=== PATIENT | female | born 1950 | race Caucasian/White ===

== ENCOUNTER 2018-07-28 07:07 | Outpatient (CLI) | payer MEDICARE, SELFPAY ==
[2018-07-28 10:57] LABS: Hemoglobin A1C 7.4 % (4.5-6.2)
== END 2018-07-28 07:27 ==
PROVIDERS: PCP Emergency Medicine; Visit Provider Family Medicine
DX: E11.9 Type 2 diabetes mellitus without complications (principal)
CPT/HCPCS: 36415; 83036

== ENCOUNTER 2018-09-14 10:32 | Emergency (ER) | payer MEDICARE, SELFPAY ==
[2018-09-14] VITALS (45 sets, daily range): BP systolic 81–164; BP diastolic 46–73; PULSE 70–90; RESP 13–54; TEMP 36.3–37.1; O2SAT 96–100
--- NOTE | 2018-09-14 11:09 | W.ED.GENAD ---
Discharge Plan Disposition Patient Disposition: [facility] Condition: Critical Discharge Details Chief Complaint: Chest Pain Clinical Impression: Acute non-ST elevation myocardial infarction (NSTEMI) Primary Care Provider: Mateo Waite ED Provider: [facility] Home Meds and New Rx's Prescriptions: No Action amlodipine 10 mg tablet 5 mg PO DAILY Qty: 90 RF: 2 ropinirole 0.5 mg tablet 0.5 mg PO HS Qty: 15 RF: 0 ropinirole 0.5 mg tablet 0.5 mg PO HS Qty: 90 RF: 1 blood sugar diagnostic [Blood Glucose Test] 1 EACH strip 1 ea Miscellaneous DAILY Qty: 100 RF: 2 atorvastatin 80 MG tablet 80 mg PO DAILY Qty: 90 RF: 4 glipizide 10 MG tablet 15 - 20 mg PO BID Qty: 315 RF: 2 chlorthalidone 25 MG tablet 25 mg PO DAILY Qty: 90 RF: 4 losartan 100 MG tablet 100 mg PO QAM Qty: 90 RF: 4 sertraline [Zoloft] 50 MG tablet 1 tab PO HS Qty: 90 RF: 4 metformin [Glucophage] 1,000 MG tablet 1,000 - 1,500 mg PO as directed Qty: 225 RF: 3 meloxicam 15 mg tablet 15 mg PO DAILY Qty: 30 RF: 0 aspirin [Aspir-81] 81 MG tablet,delayed release (DR/EC) 81 mg PO DAILY RF: 0 Discharge Data Discharge Date/Time-TO BE ENTERED AT DEPARTURE: 09/14/18 13:49 Medical Decision Making 11:10 -- 68yo f with history of diabetes, hypertension, hyperlipidemia, here with chest discomfort. Concern for ACS given risk factors and presentation. ECG reviewed and interpreted by me: Normal sinus rhythm 77 bpm, normal axis, less than [address] elevation is noted in lead II and 3; subtle ST depression noted lead I and aVL, [place] depression is noted in leads II, III, aVF. Willl attempt to obtain old ecg for comparison. Will check trop. Patient took asa earlier today. Plan to treat with nitroglycerin sublingual. Will reassess. 11:20 -- Old ecg from 10/29/2010 reviewed, similar to current EKG with no significant changes. 11:45 -- Patient reassessed and pain resolved with nitro. 12:13 -- labs reviewed and elevated trop. Suspect NSTEMI. Will start heparin bolus and infusion. Will give plavix. Start nitro gtt and titrate to effect. 12:23 -- Spoke with [facility] [place] - not able to accept patient in transfer until tomorrow (maybe). Spoke with [facility] transfer center, awaiting call back from [facility]. cxr reviewed and interpreted by me: no acute cardiopullm disease labs reviewed and anemia noted - unclear etiology. Patient does not have known history of anemia. No prior Hb in system. Patient notes nrectal exam eg for blood 1 month ago. Rectal exam performed today with female nurse battery wrecker operator present: heme neg, control passed. 12:47 -- I spoke with Dr. Barragan at [facility] - he will accept patient in transfer to [facility] ED. He recommended giving additional 300mg of plavix now. Will arrange for medic level transport. Lab Data Lab results reviewed: Yes I reviewed the patient's lab results. Laboratory Tests Range/Units 09/14/18 09/14/18 10:55 10:55 WBC (4.4-10.8) k/cumm 7.98 RBC (4.00-5.20) m/cumm 4.46 Hgb (12.0-15.5) g/dL 9.4 L Hct (36.0-46.0) % 30.8 L MCV (80-95) fL 69.1 L MCH (27.0-33.0) pg 21.1 L MCHC (32.0-36.0) g/dL 30.5 L RDW (11.7-14.6) % 18.7 H Plt Count (130-400) x1000/uL 223 MPV (8.0-11.0) fL Immature Gran % 0.1 Neutrophils % 81.2 Lymphocytes % 11.3 Monocytes % 6.1 Eosinophils % 1.0 Basophils % 0.3 Absolute Neutrophils (1.2-6.7) k/cumm 6.48 Absolute Lymphocytes (1.2-3.4) k/cumm 0.90 L Absolute Monocytes (0.11-0.7) k/cumm 0.49 Absolute Eosinophils (0.0-0.7) k/cumm 0.08 Absolute Basophils (0.0-0.2) k/cumm 0.02 Differential Comment Diff reviewed RBC Morphology See below Polychromasia Present Hypochromasia 3+ Basophilic Stippling Present Anisocytosis 2+ Microcytosis 3+ Ovalocytes 3+ Sodium (136-145) mmol/L 138 Potassium (3.5-5.1) mmol/L 4.0 Chloride (98-107) mmol/L 100 Carbon Dioxide (21.0-32.0) mmol/L 26.1 Anion Gap (3-11) mmol/L 11.9 H BUN (7-18) mg/dL 20 H Creatinine (0.55-1.02) mg/dL 0.95 Estimated GFR/1.73 m2 (mL/min/1.73m2) 58.33 Glucose (70-100) mg/dL 224 H Calcium (8.5-10.1) mg/dL 8.9 Magnesium (1.8-2.4) mg/dL 1.0 L Total Bilirubin (0.2-1.0) mg/dL 0.3 AST (15-37) U/L 43 H ALT (12-78) U/L 34 Alkaline Phosphatase (46-116) U/L 86 Troponin I (0.00-0.06) ng/mL 1.65 H NT-Pro-B Natriuret Pep ( - 299) pg/mL 1168 H Total Protein (6.4-8.2) g/dL 7.3 Albumin (3.4-5.0) g/dL 3.7 HPI General Mode of arrival: ambulatory. Date/Time Provider Initiated Documentation: 09/14/18 11:09. Limitations to Documentation: no limitations. Information obtained by: patient. HPI Narrative: 68-year-old female with history of diabetes, hypertension, hyperlipidemia, moderate aortic regurgitation, presents with chief complaint of chest discomfort. Patient notes discomfort started yesterday afternoon, discomfort described as heavy, constant, moderate intensity and rated 5/10, associated dyspnea on exertion. No cough. No leg swelling, recent surgery or immobility. Related Data Home Medications Medication Instructions Recorded Confirmed aspirin [Aspir 81] 81 mg PO DAILY 02/02/13 09/14/18 blood sugar diagnostic [Blood #100 strip 02/12/17 08/11/18 Glucose Test] atorvastatin 80 mg PO DAILY #90 tab-cap 06/07/18 09/14/18 chlorthalidone 25 mg PO DAILY #90 tab-cap 06/07/18 09/14/18 glipizide 15 - 20 mg PO BID #315 tab-cap 06/07/18 09/14/18 losartan 100 mg PO QAM #90 tab 06/07/18 09/14/18 metformin [Glucophage] 1,000 - 1,500 mg PO as directed 06/07/18 09/14/18 #225 tab sertraline [Zoloft] 1 tab PO HS #90 tab-cap 06/07/18 09/14/18 amlodipine 10 mg tablet 5 mg PO DAILY #90 tab-cap 08/11/18 09/14/18 ropinirole 0.5 mg tablet 0.5 mg PO HS #15 tab 08/11/18 08/11/18 ropinirole 0.5 mg tablet 0.5 mg PO HS #90 tab 08/11/18 09/14/18 meloxicam 15 mg tablet 15 mg PO DAILY #30 tab 09/06/18 Previous Rx's Medication Instructions Recorded atorvastatin 80 mg PO DAILY #90 tab-cap 06/07/18 chlorthalidone 25 mg PO DAILY #90 tab-cap 06/07/18 glipizide 15 - 20 mg PO BID #315 tab-cap 06/07/18 losartan 100 mg PO QAM #90 tab 06/07/18 metformin [Glucophage] 1,000 - 1,500 mg PO as directed 06/07/18 #225 tab sertraline [Zoloft] 1 tab PO HS #90 tab-cap 06/07/18 amlodipine 10 mg tablet 5 mg PO DAILY #90 tab-cap 08/11/18 ropinirole 0.5 mg tablet 0.5 mg PO HS #15 tab 08/11/18 ropinirole 0.5 mg tablet 0.5 mg PO HS #90 tab 08/11/18 meloxicam 15 mg tablet 15 mg PO DAILY #30 tab 09/06/18 Allergies Allergy/AdvReac Type Severity Reaction Status Date / Time hydrochlorothiazide AdvReac Mild GI upset Unverified 09/14/18 10:49 lisinopril AdvReac Mild cough Unverified 09/14/18 10:49 naproxen AdvReac Mild Itching Unverified 09/14/18 10:49 oxycodone HCl [From Percocet] AdvReac Mild n and v Unverified 09/14/18 10:49 tetracycline AdvReac Mild G[set Unverified 09/14/18 10:49 General Stated Complaint: Chest Pain SHARRON: 2 Review of Systems Review of Systems All systems reviewed & are unremarkable except as noted in HPI and below Cardiovascular Reports as per HPI, Denies dyspnea and Reports dyspnea on exertion Respiratory Denies dyspnea and Reports dyspnea on exertion PFSH Family History Mother Diabetes Father Cerebrovascular accident Sister Neoplasm Sister No problems noted. 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/Tobacco Use Status: Former Tobacco Use passive smoking exposure: No alcohol intake: never substance use type: does not use julieta/jain: [employer] special julieta needs: No Surgical History Abdominal hysterectomy (~1997) Exam Const General: cooperative and no acute distress HENMT Head: normocephalic and atraumatic Mouth: moist mucous membranes Eyes Conjunctivae: normal conjunctivae Sclera: normal sclerae EOM: EOM intact bilaterally Neck Neck: trachea midline and supple Resp Auscultation: clear to auscultation bilaterally, no rales, no rhonchi and no wheezes Cardio Jugular venous pressure: no JVD Rate: regular rate and not tachycardic Rhythm: regular rhythm GI Palpation: soft, not firm, no guarding, no masses, not rigid and nontender Skin General skin exam: no rashes or lesions noted Neuro General: alert, awake, oriented x3 and tone normal Extrem General: no edema Psych Appearance: grossly normal Mental Status: mental status grossly normal Speech and Movement: speech and movement normal Course Vital Signs Temperature 36.3 C L 09/14/18 10:45 Pulse 76 09/14/18 10:45 Respiratory Rate 16 09/14/18 10:45 Blood Pressure 135/51 L 09/14/18 10:45 Pulse Oximetry 97 09/14/18 10:45 Temperature 36.3 C L 09/14/18 10:45 Temperature Source Skin 09/14/18 10:45 Pulse 76 09/14/18 10:45 Respiratory Rate 16 09/14/18 10:53 Respiratory Effort 09/14/18 10:53 Respiratory Depth Normal 09/14/18 10:53 Blood Pressure 135/51 L 09/14/18 10:45 Pulse Oximetry 97 09/14/18 10:45 Oxygen Delivery Method Room Air 09/14/18 10:45 Oxygen Flow Rate 0 09/14/18 10:45 Pain Level 8 09/14/18 10:53 Comment 09/14/18 10:45 Critical Care Time Total Critical Care Time: 55 Attestation: I spent >55 min addressing this patient's immediate life threats
--- NOTE | 2018-09-14 11:16 | ED.GENADUL_ITS ---
Discharge Plan Disposition Patient Disposition: [facility] Condition: Critical Discharge Details Chief Complaint: Chest Pain Clinical Impression: Acute non-ST elevation myocardial infarction (NSTEMI) Primary Care Provider: Mateo Waite ED Provider: [facility] Home Meds and New Rx's Prescriptions: No Action amlodipine 10 mg tablet 5 mg PO DAILY Qty: 90 RF: 2 ropinirole 0.5 mg tablet 0.5 mg PO HS Qty: 15 RF: 0 ropinirole 0.5 mg tablet 0.5 mg PO HS Qty: 90 RF: 1 blood sugar diagnostic [Blood Glucose Test] 1 EACH strip 1 ea Miscellaneous DAILY Qty: 100 RF: 2 atorvastatin 80 MG tablet 80 mg PO DAILY Qty: 90 RF: 4 glipizide 10 MG tablet 15 - 20 mg PO BID Qty: 315 RF: 2 chlorthalidone 25 MG tablet 25 mg PO DAILY Qty: 90 RF: 4 losartan 100 MG tablet 100 mg PO QAM Qty: 90 RF: 4 sertraline [Zoloft] 50 MG tablet 1 tab PO HS Qty: 90 RF: 4 metformin [Glucophage] 1,000 MG tablet 1,000 - 1,500 mg PO as directed Qty: 225 RF: 3 meloxicam 15 mg tablet 15 mg PO DAILY Qty: 30 RF: 0 aspirin [Aspir-81] 81 MG tablet,delayed release (DR/EC) 81 mg PO DAILY RF: 0 Discharge Data Discharge Date/Time-TO BE ENTERED AT DEPARTURE: 09/14/18 13:49 Medical Decision Making 11:10 -- 68yo f with history of diabetes, hypertension, hyperlipidemia, here with chest discomfort. Concern for ACS given risk factors and presentation. ECG reviewed and interpreted by me: Normal sinus rhythm 77 bpm, normal axis, less than [address] elevation is noted in lead II and 3; subtle ST depression noted lead I and aVL, [place] depression is noted in leads II, III, aVF. Willl attempt to obtain old ecg for comparison. Will check trop. Patient took asa earlier today. Plan to treat with nitroglycerin sublingual. Will reassess. 11:20 -- Old ecg from 10/29/2010 reviewed, similar to current EKG with no significant changes. 11:45 -- Patient reassessed and pain resolved with nitro. 12:13 -- labs reviewed and elevated trop. Suspect NSTEMI. Will start heparin bolus and infusion. Will give plavix. Start nitro gtt and titrate to effect. 12:23 -- Spoke with [facility] [place] - not able to accept patient in transfer until tomorrow (maybe). Spoke with [facility] transfer center, awaiting call back from [facility]. cxr reviewed and interpreted by me: no acute cardiopullm disease labs reviewed and anemia noted - unclear etiology. Patient does not have known history of anemia. No prior Hb in system. Patient notes nrectal exam eg for blood 1 month ago. Rectal exam performed today with female nurse arc cutter plasma arc present: heme neg, control passed. 12:47 -- I spoke with Dr. Barragan at [facility] - he will accept patient in transfer to [facility] ED. He recommended giving additional 300mg of plavix now. Will arrange for medic level transport. Lab Data Lab results reviewed: Yes I reviewed the patient's lab results. Laboratory Tests Range/Units 09/14/18 09/14/18 10:55 10:55 WBC (4.4-10.8) k/cumm 7.98 RBC (4.00-5.20) m/cumm 4.46 Hgb (12.0-15.5) g/dL 9.4 L Hct (36.0-46.0) % 30.8 L MCV (80-95) fL 69.1 L MCH (27.0-33.0) pg 21.1 L MCHC (32.0-36.0) g/dL 30.5 L RDW (11.7-14.6) % 18.7 H Plt Count (130-400) x1000/uL 223 MPV (8.0-11.0) fL Immature Gran % 0.1 Neutrophils % 81.2 Lymphocytes % 11.3 Monocytes % 6.1 Eosinophils % 1.0 Basophils % 0.3 Absolute Neutrophils (1.2-6.7) k/cumm 6.48 Absolute Lymphocytes (1.2-3.4) k/cumm 0.90 L Absolute Monocytes (0.11-0.7) k/cumm 0.49 Absolute Eosinophils (0.0-0.7) k/cumm 0.08 Absolute Basophils (0.0-0.2) k/cumm 0.02 Differential Comment Diff reviewed RBC Morphology See below Polychromasia Present Hypochromasia 3+ Basophilic Stippling Present Anisocytosis 2+ Microcytosis 3+ Ovalocytes 3+ Sodium (136-145) mmol/L 138 Potassium (3.5-5.1) mmol/L 4.0 Chloride (98-107) mmol/L 100 Carbon Dioxide (21.0-32.0) mmol/L 26.1 Anion Gap (3-11) mmol/L 11.9 H BUN (7-18) mg/dL 20 H Creatinine (0.55-1.02) mg/dL 0.95 Estimated GFR/1.73 m2 (mL/min/1.73m2) 58.33 Glucose (70-100) mg/dL 224 H Calcium (8.5-10.1) mg/dL 8.9 Magnesium (1.8-2.4) mg/dL 1.0 L Total Bilirubin (0.2-1.0) mg/dL 0.3 AST (15-37) U/L 43 H ALT (12-78) U/L 34 Alkaline Phosphatase (46-116) U/L 86 Troponin I (0.00-0.06) ng/mL 1.65 H NT-Pro-B Natriuret Pep ( - 299) pg/mL 1168 H Total Protein (6.4-8.2) g/dL 7.3 Albumin (3.4-5.0) g/dL 3.7 HPI General Mode of arrival: ambulatory . Date/Time Provider Initiated Documentation: 09/14/18 11:09 . Limitations to Documentation: no limitations . Information obtained by: patient . HPI Narrative: 68-year-old female with history of diabetes, hypertension, hyperlipidemia, moderate aortic regurgitation, presents with chief complaint of chest discomfort. Patient notes discomfort started yesterday afternoon, discomfort described as heavy, constant, moderate intensity and rated 5/10, associated dyspnea on exertion. No cough. No leg swelling, recent surgery or immobility. Related Data Home Medications Medication Instructions Recorded Confirmed aspirin [Aspir 81] 81 mg PO DAILY 02/02/13 09/14/18 blood sugar diagnostic [Blood #100 strip 02/12/17 08/11/18 Glucose Test] atorvastatin 80 mg PO DAILY #90 tab-cap 06/07/18 09/14/18 chlorthalidone 25 mg PO DAILY #90 tab-cap 06/07/18 09/14/18 glipizide 15 - 20 mg PO BID #315 tab-cap 06/07/18 09/14/18 losartan 100 mg PO QAM #90 tab 06/07/18 09/14/18 metformin [Glucophage] 1,000 - 1,500 mg PO as directed 06/07/18 09/14/18 #225 tab sertraline [Zoloft] 1 tab PO HS #90 tab-cap 06/07/18 09/14/18 amlodipine 10 mg tablet 5 mg PO DAILY #90 tab-cap 08/11/18 09/14/18 ropinirole 0.5 mg tablet 0.5 mg PO HS #15 tab 08/11/18 08/11/18 ropinirole 0.5 mg tablet 0.5 mg PO HS #90 tab 08/11/18 09/14/18 meloxicam 15 mg tablet 15 mg PO DAILY #30 tab 09/06/18 Previous Rx's Medication Instructions Recorded atorvastatin 80 mg PO DAILY #90 tab-cap 06/07/18 chlorthalidone 25 mg PO DAILY #90 tab-cap 06/07/18 glipizide 15 - 20 mg PO BID #315 tab-cap 06/07/18 losartan 100 mg PO QAM #90 tab 06/07/18 metformin [Glucophage] 1,000 - 1,500 mg PO as directed 06/07/18 #225 tab sertraline [Zoloft] 1 tab PO HS #90 tab-cap 06/07/18 amlodipine 10 mg tablet 5 mg PO DAILY #90 tab-cap 08/11/18 ropinirole 0.5 mg tablet 0.5 mg PO HS #15 tab 08/11/18 ropinirole 0.5 mg tablet 0.5 mg PO HS #90 tab 08/11/18 meloxicam 15 mg tablet 15 mg PO DAILY #30 tab 09/06/18 Allergies Allergy/AdvReac Type Severity Reaction Status Date / Time hydrochlorothiazide AdvReac Mild GI upset Unverified 09/14/18 10:49 lisinopril AdvReac Mild cough Unverified 09/14/18 10:49 naproxen AdvReac Mild Itching Unverified 09/14/18 10:49 oxycodone HCl [From Percocet] AdvReac Mild n and v Unverified 09/14/18 10:49 tetracycline AdvReac Mild G[set Unverified 09/14/18 10:49 General Stated Complaint: Chest Pain SHARRON: 2 Review of Systems Review of Systems All systems reviewed & are unremarkable except as noted in HPI and below Cardiovascular Reports as per HPI, Denies dyspnea and Reports dyspnea on exertion Respiratory Denies dyspnea and Reports dyspnea on exertion PFSH Family History Mother Diabetes Father Cerebrovascular accident Sister Neoplasm Sister No problems noted. Brother Heart disease Brother Diabetes Alcohol abuse Medical History Primary osteoarthritis of left knee (Acute 06/16/18) Osteoarthritis of knee (Acute 09/24/14) Moderate aortic regurgitation (Acute 04/09/15) Increased body mass index (Acute) Hyperlipidemia (Acute 04/26/13) Essential hypertension (Acute 10/24/13) Diabetes mellitus (Acute 04/26/13) Depressive disorder (Acute) Cataracts, both eyes (Acute 08/24/17) Carpal tunnel syndrome (Acute 09/21/13) Social History current occupational status: employed current occupation: [employer] Smoking/Tobacco Use Status: Former Tobacco Use passive smoking exposure: No alcohol intake: never substance use type: does not use julieta/catholic: [employer] special julieta needs: No Surgical History Abdominal hysterectomy (~1997) Exam Const General: cooperative and no acute distress HENMT Head: normocephalic and atraumatic Mouth: moist mucous membranes Eyes Conjunctivae: normal conjunctivae Sclera: normal sclerae EOM: EOM intact bilaterally Neck Neck: trachea midline and supple Resp Auscultation: clear to auscultation bilaterally, no rales, no rhonchi and no wheezes Cardio Jugular venous pressure: no JVD Rate: regular rate and not tachycardic Rhythm: regular rhythm GI Palpation: soft, not firm, no guarding, no masses, not rigid and nontender Skin General skin exam: no rashes or lesions noted Neuro General: alert, awake, oriented x3 and tone normal Extrem General: no edema Psych Appearance: grossly normal Mental Status: mental status grossly normal Speech and Movement: speech and movement normal Course Vital Signs Temperature 36.3 C L 09/14/18 10:45 Pulse 76 09/14/18 10:45 Respiratory Rate 16 09/14/18 10:45 Blood Pressure 135/51 L 09/14/18 10:45 Pulse Oximetry 97 09/14/18 10:45 Temperature 36.3 C L 09/14/18 10:45 Temperature Source Skin 09/14/18 10:45 Pulse 76 09/14/18 10:45 Respiratory Rate 16 09/14/18 10:53 Respiratory Effort 09/14/18 10:53 Respiratory Depth Normal 09/14/18 10:53 Blood Pressure 135/51 L 09/14/18 10:45 Pulse Oximetry 97 09/14/18 10:45 Oxygen Delivery Method Room Air 09/14/18 10:45 Oxygen Flow Rate 0 09/14/18 10:45 Pain Level 8 09/14/18 10:53 Comment 09/14/18 10:45 Critical Care Time Total Critical Care Time: 55 Attestation: I spent >55 min addressing this patient's immediate life threats
--- NOTE | 2018-09-14 11:31 | DI.RAD_ITS ---
SYMPTOM/DIAGNOSIS: CHEST PAIN PORTABLE AP CHEST: Comparison is made with 01/18/05. The heart size is normal. The aorta shows calcification at the arch. The lungs are suboptimally inflated. No infiltrate , effusion or pulmonary edema is seen. There is no evidence of pneumothorax. IMPRESSION: No acute abnormality.
[2018-09-14 11:43] LABS: Abs Immature Grans 0.01 k/cumm (0.0-0.09); Absolute Basophil Count 0.02 k/cumm (0.0-0.2); Absolute Eosinophil Count 0.08 k/cumm (0.0-0.7); Absolute Monocyte Count 0.49 k/cumm (0.11-0.7); Absolute Neutrophil Count 6.48 k/cumm (1.2-6.7); Basophils % 0.3; HCT 30.8 % (36.0-46.0); HGB 9.4 g/dL (12.0-15.5); Immature Grans % 0.1; Lymphocytes % 11.3; Mean Corp. HGB Concentration 30.5 g/dL (32.0-36.0); Mean Corpuscular Hemoglobin 21.1 pg (27.0-33.0); Mean Corpuscular Volume 69.1 fL (80-95); Monocytes % 6.1; Neutrophils % 81.2; Platelet Count 223 x1000/uL (130-400); RBC 4.46 m/cumm (4.00-5.20); RBC Distribution Width 18.7 % (11.7-14.6); White Blood Cell Count 7.98 k/cumm (4.4-10.8)
[2018-09-14 12:00] LABS: Anisocytosis 2+; Basophilic Stippling Present; Hypochromasia 3+; Microcytosis 3+; Ovalocytes 3+; Polychromasia Present
[2018-09-14 12:01] LABS: ALT 34 U/L (12-78); AST 43 U/L (15-37); Albumin 3.7 g/dL (3.4-5.0); Alkaline Phosphatase 86 U/L (46-116); Anion Gap 11.9 mmol/L (3-11); BUN 20 mg/dL (7-18); Bilirubin, Total 0.3 mg/dL (0.2-1.0); CO2 26.1 mmol/L (21.0-32.0); CREATININE 0.95 mg/dL (0.55-1.02); Calcium 8.9 mg/dL (8.5-10.1); Chloride 100 mmol/L (98-107); Diff Comment Diff Reviewed; Estimated GFR 58.33 (mL/min/1.73m2); Glucose 224 mg/dL (70-100); NT-proBNP 1168 pg/mL; Sodium 138 mmol/L (136-145); Total Protein 7.3 g/dL (6.4-8.2)
[2018-09-14 12:04] LABS: Troponin I 1.65 ng/mL (0.00-0.06)
[2018-09-14] MEDS: Clopidogrel 300 MG TAB PO (12:35)
[2018-09-14] MEDS: Aspirin 81 MG CHEW 162 MG CH (14:00)
== END 2018-09-14 13:49 ==
PROVIDERS: Emergency Provider Student in an Organized Health Care Education/Training Program; PCP Emergency Medicine
DX: I21.4 Non-ST elevation (NSTEMI) myocardial infarction (principal); E11.9 Type 2 diabetes mellitus without complications; Z79.84 Long term (current) use of oral hypoglycemic drugs; I10 Essential (primary) hypertension
CPT/HCPCS: 36415; 80053; 93005; 96365; 96368; 96376; 99291; 71045; 83735; 83880; 84484; 85025; 93010

== ENCOUNTER 2018-09-19 14:01 | Outpatient (RCR) | payer MEDICARE, SELFPAY | END 2018-09-21 23:59 | disposition home or self-care (01) | LOC: CR 14:01 | PROVIDERS: PCP Emergency Medicine; Visit Provider Family Medicine | DX: Z51.89 Encounter for other specified aftercare (principal) ==

== ENCOUNTER 2018-10-21 13:22 | Outpatient (RCR) | payer MEDICARE, SELFPAY | END 2018-10-21 23:59 | disposition home or self-care (01) | LOC: CR 13:22 | PROVIDERS: PCP Emergency Medicine; Visit Provider Family Medicine | DX: Z51.89 Encounter for other specified aftercare (principal) | CPT/HCPCS: S9472 ==

== ENCOUNTER 2018-11-21 13:00 | Outpatient (RCR) | payer MEDICARE, MEDICAID, SELFPAY | END 2018-11-21 23:59 | disposition home or self-care (01) | LOC: CR 13:00 | PROVIDERS: PCP Emergency Medicine; Visit Provider Family Medicine | DX: Z51.89 Encounter for other specified aftercare (principal) | CPT/HCPCS: S9472 ==

== ENCOUNTER 2018-12-01 01:19 | Outpatient (CLI) | payer MEDICARE, MEDICAID, SELFPAY ==
[2018-12-01 07:59] LABS: Abs Immature Grans 0.01 k/cumm (0.0-0.09); Absolute Basophil Count 0.02 k/cumm (0.0-0.2); Absolute Lymphocyte Count 1.24 k/cumm (1.2-3.4); Absolute Monocyte Count 0.42 k/cumm (0.11-0.7); Absolute Neutrophil Count 3.65 k/cumm (1.2-6.7); Basophils % 0.4; Eosinophils % 3.6; HCT 28.9 % (36.0-46.0); HGB 8.6 g/dL (12.0-15.5); Immature Grans % 0.2; Lymphocytes % 22.4; Mean Corp. HGB Concentration 29.8 g/dL (32.0-36.0); Mean Corpuscular Hemoglobin 20.1 pg (27.0-33.0); Mean Corpuscular Volume 67.5 fL (80-95); Monocytes % 7.6; Neutrophils % 65.8; RBC 4.28 m/cumm (4.00-5.20); RBC Distribution Width 18.6 % (11.7-14.6); White Blood Cell Count 5.54 k/cumm (4.4-10.8)
[2018-12-01 08:39] LABS: Diff Comment Diff Reviewed; Platelet Count 226 x1000/uL (130-400)
[2018-12-01 08:40] LABS: Anisocytosis 2+; Basophilic Stippling Present; Hypochromasia 3+; Microcytosis 3+; Ovalocytes 2+; Polychromasia Present
[2018-12-01 08:41] LABS: Poikilocytes 3+
[2018-12-01 08:58] LABS: Iron 17 ug/dL (50-175); Total Iron Binding Capacity 400 ug/dL (250-450); Transferrin Sat 4 % (15-50)
[2018-12-01 09:11] LABS: Ferritin 5 ng/mL (8-388)
== END 2018-12-01 01:39 ==
PROVIDERS: PCP Emergency Medicine; Visit Provider Emergency Medicine
DX: D64.9 Anemia, unspecified (principal)
CPT/HCPCS: 36415; 82728; 83540; 83550; 85025

== ENCOUNTER 2018-12-13 02:16 | Outpatient (CLI) | payer MEDICARE, MEDICAID, SELFPAY ==
[2018-12-13 08:45] LABS: Bilirubin Negative (Negative); Blood Negative (Negative); Clarity Clear; Glucose 100 mg/dL (Negative); Ketones Trace mg/dL (Negative); Leukocyte Esterase Small (Negative); Nitrite Negative (Negative); Urobilinogen 0.2 EU/dL (Up TO 0.2); pH 5.5 (5-8)
[2018-12-13 08:58] LABS: RBC 0-2 (0-2)
[2018-12-13 08:59] LABS: Bacteria Moderate HPF (Negative); C & S Indicated? Yes; Casts Negative LPF (Negative); Crystals Negative HPF (Negative); Epithelial Cells Few HPF (Negative); Mucus Moderate (Negative); Other Cells Few Transitional (Negative)
[2018-12-13 10:11] LABS: Magnesium 1.3 mg/dL (1.8-2.4)
[2018-12-14 11:57] LABS: IgA 203 mg/dL (85-499); Interpretation SEE COMMENTS; Tissue Transglutaminase IgA <1.2 U/mL (<4.0)
== END 2018-12-13 02:36 ==
PROVIDERS: PCP Family Medicine; Visit Provider Family Medicine
DX: R19.7 Diarrhea, unspecified (principal); E83.42 Hypomagnesemia; E11.9 Type 2 diabetes mellitus without complications; M17.12 Unilateral primary osteoarthritis, left knee; Z79.84 Long term (current) use of oral hypoglycemic drugs
CPT/HCPCS: 20610; 36415; 82784; 83516; 87077; 99211; 99213; 81003; 81015; 83735; 87086; J7325

== ENCOUNTER → 2018-12-14 11:04 | Outpatient (BNVA) | payer MEDICARE, MEDICAID, SELFPAY | PROVIDERS: PCP Family Medicine; Visit Provider Student in an Organized Health Care Education/Training Program | DX: I25.10 Atherosclerotic heart disease of native coronary artery without angina pectoris (principal); D50.9 Iron deficiency anemia, unspecified; I10 Essential (primary) hypertension; I65.22 Occlusion and stenosis of left carotid artery; I35.1 Nonrheumatic aortic (valve) insufficiency | CPT/HCPCS: 99204; 99215 ==

== ENCOUNTER 2018-12-26 01:54 | Outpatient (CLI) | payer MEDICARE, MEDICAID, SELFPAY ==
[2018-12-26 12:21] LABS: HCT 28.8 % (36.0-46.0); HGB 8.6 g/dL (12.0-15.5); Mean Corp. HGB Concentration 29.9 g/dL (32.0-36.0); Mean Corpuscular Hemoglobin 20.4 pg (27.0-33.0); Mean Corpuscular Volume 68.4 fL (80-95); RBC 4.21 m/cumm (4.00-5.20); RBC Distribution Width 20.7 % (11.7-14.6)
[2018-12-26 13:00] LABS: Platelet Count 212 x1000/uL (130-400)
[2018-12-26 13:49] LABS: Iron 29 ug/dL (50-175)
== END 2018-12-26 02:14 ==
PROVIDERS: PCP Family Medicine; Visit Provider Family Medicine
DX: D50.9 Iron deficiency anemia, unspecified (principal)
CPT/HCPCS: 36415; 85027; 83540

== ENCOUNTER 2019-01-26 10:11 | Outpatient (CLI) | payer MEDICARE, MEDICAID, SELFPAY ==
[2019-01-26 12:56] LABS: Iron 37 ug/dL (50-175); Total Iron Binding Capacity 372 ug/dL (250-450); Transferrin Sat 10 % (15-50)
[2019-01-26 13:02] LABS: Hemoglobin A1C 6.6 % (4.5-6.2)
[2019-01-26 13:14] LABS: Abs Immature Grans 0.01 k/cumm (0.0-0.09); Absolute Basophil Count 0.03 k/cumm (0.0-0.2); Absolute Eosinophil Count 0.14 k/cumm (0.0-0.7); Absolute Monocyte Count 0.51 k/cumm (0.11-0.7); Absolute Neutrophil Count 4.43 k/cumm (1.2-6.7); Basophils % 0.5; COMMENT (LAB VIEW ONLY) 56.77 mg/dL; Eosinophils % 2.1; HCT 34.2 % (36.0-46.0); HGB 10.3 g/dL (12.0-15.5); Immature Grans % 0.2; Lymphocytes % 21.5; Mean Corp. HGB Concentration 30.1 g/dL (32.0-36.0); Mean Corpuscular Hemoglobin 21.7 pg (27.0-33.0); Microalb ug/mg Crea 843.6 ug/mg Cr; Monocytes % 7.8; Neutrophils % 67.9; RBC 4.75 m/cumm (4.00-5.20); RBC Distribution Width 24.1 % (11.7-14.6); Reticulocyte 1.3 % (0.5-2.4); White Blood Cell Count 6.52 k/cumm (4.4-10.8)
[2019-01-26 13:16] LABS: ALT 24 U/L (12-78); AST 21 U/L (15-37); Albumin 3.9 g/dL (3.4-5.0); Alkaline Phosphatase 109 U/L (46-116); Anion Gap 7.4 mmol/L (3-11); BUN 25 mg/dL (7-18); Bilirubin, Total 0.3 mg/dL (0.2-1.0); CO2 28.6 mmol/L (21.0-32.0); CREATININE 0.75 mg/dL (0.55-1.02); Calcium 9.8 mg/dL (8.5-10.1); Chloride 105 mmol/L (98-107); Cholesterol 145 mg/dL (50-200); Ferritin 7 ng/mL (8-388); Glucose 155 mg/dL (70-100); HDL Cholesterol 54 mg/dL (40-60); LDL CHOLESTEROL 70 mg/dL (<100); Magnesium 1.2 mg/dL (1.8-2.4); Potassium 5.1 mmol/L (3.5-5.1); Sodium 141 mmol/L (136-145); Total Protein 7.1 g/dL (6.4-8.2); Triglyceride 102 mg/dL (30-150)
[2019-01-26 13:36] LABS: Anisocytosis 2+; Diff Comment RBC Morph Reviewed; Hypochromasia 1+; Microcytosis 2+; Ovalocytes 2+; Platelet Count 218 x1000/uL (130-400)
[2019-01-26 13:37] LABS: Poikilocytes 2+; Polychromasia Present; Schistocytes 1+
== END 2019-01-26 10:31 ==
PROVIDERS: PCP Family Medicine; Visit Provider Family Medicine
DX: D50.9 Iron deficiency anemia, unspecified (principal); E11.9 Type 2 diabetes mellitus without complications; I25.10 Atherosclerotic heart disease of native coronary artery without angina pectoris; E83.42 Hypomagnesemia
CPT/HCPCS: 36415; 80053; 80061; 83721; 82043; 82570; 82728; 83036; 83540; 83550; 83735; 85025; 85045

== ENCOUNTER 2019-02-22 07:43 | Outpatient (REF) | payer MEDICARE, SELFPAY ==
[2019-02-23 11:29] LABS: Helicobacter pylori Ag, Feces Positive (NEGAT)
== END 2019-02-22 08:03 ==
LOC: NCHCN 07:43
PROVIDERS: PCP Family Medicine; Visit Provider Family Medicine
DX: D50.9 Iron deficiency anemia, unspecified (principal)
CPT/HCPCS: 87338

== ENCOUNTER 2019-04-03 15:47 | Outpatient (CLI) | payer MEDICARE, SELFPAY ==
[2019-04-03 16:13] LABS: HCT 38.7 % (36.0-46.0); HGB 12.5 g/dL (12.0-15.5); Mean Corp. HGB Concentration 32.3 g/dL (32.0-36.0); Mean Corpuscular Hemoglobin 25.7 pg (27.0-33.0); Mean Corpuscular Volume 79.6 fL (80-95); RBC 4.86 m/cumm (4.00-5.20); White Blood Cell Count 7.22 k/cumm (4.4-10.8)
[2019-04-03 17:03] LABS: Iron 52 ug/dL (50-175); Total Iron Binding Capacity 295 ug/dL (250-450); Transferrin Sat 18 % (15-50)
[2019-04-03 17:05] LABS: Platelet Count 201 x1000/uL (130-400)
[2019-04-03 17:17] LABS: Ferritin 16 ng/mL (8-388)
== END 2019-04-03 16:07 ==
PROVIDERS: PCP Family Medicine; Visit Provider Family Medicine
DX: D50.9 Iron deficiency anemia, unspecified (principal)
CPT/HCPCS: 36415; 85027; 82728; 83540; 83550

== ENCOUNTER 2019-04-03 16:01 | Outpatient (REF) | payer MEDICARE, SELFPAY ==
[2019-04-06 11:47] LABS: Helicobacter pylori Ag, Feces Negative (NEGAT)
== END 2019-04-03 16:21 ==
LOC: LBN 16:01
PROVIDERS: PCP Family Medicine; Visit Provider Family Medicine
DX: A04.8 Other specified bacterial intestinal infections (principal)
CPT/HCPCS: 87338

== ENCOUNTER 2019-05-04 10:07 | Outpatient (CLI) | payer MEDICARE, SELFPAY ==
[2019-05-04 13:06] LABS: HCT 41.5 % (36.0-46.0); HGB 13.6 g/dL (12.0-15.5)
[2019-05-04 13:14] LABS: Hemoglobin A1C 6.4 % (4.5-6.2); Iron 77 ug/dL (50-175)
[2019-05-04 13:52] LABS: Anion Gap 12.7 mmol/L (3-11); BUN 24 mg/dL (7-18); CO2 25.3 mmol/L (21.0-32.0); CREATININE 0.68 mg/dL (0.55-1.02); Calcium 9.2 mg/dL (8.5-10.1); Chloride 103 mmol/L (98-107); Ferritin 20 ng/mL (8-388); Glucose 94 mg/dL (70-100); Magnesium 1.1 mg/dL (1.8-2.4); Potassium 4.9 mmol/L (3.5-5.1); Sodium 141 mmol/L (136-145)
== END 2019-05-04 10:27 ==
PROVIDERS: PCP Family Medicine; Visit Provider Family Medicine
DX: E83.42 Hypomagnesemia (principal); D50.9 Iron deficiency anemia, unspecified; E11.9 Type 2 diabetes mellitus without complications
CPT/HCPCS: 36415; 80048; 82728; 83036; 83540; 83735; 85014; 85018

== ENCOUNTER → 2019-06-13 08:37 | Outpatient (BNVA) | payer MEDICARE, SELFPAY | PROVIDERS: PCP Family Medicine; Referring Provider Family Medicine; Visit Provider Orthopaedic Surgery | DX: M17.12 Unilateral primary osteoarthritis, left knee (principal); E11.9 Type 2 diabetes mellitus without complications; I10 Essential (primary) hypertension | CPT/HCPCS: 20610; 99211; 99213; J7325 ==

== ENCOUNTER 2019-07-04 02:18 | Outpatient (CLI) | payer MEDICARE, SELFPAY ==
[2019-07-04 07:56] LABS: Hemoglobin A1C 6.3 % (4.5-6.2)
[2019-07-04 08:02] LABS: Anion Gap 10.7 mmol/L (3-11); BUN 25 mg/dL (7-18); CO2 26.3 mmol/L (21.0-32.0); Chloride 106 mmol/L (98-107); Glucose 113 mg/dL (70-100); Magnesium 1.1 mg/dL (1.8-2.4); Potassium 4.5 mmol/L (3.5-5.1); Sodium 143 mmol/L (136-145)
[2019-07-04 08:10] LABS: COMMENT (LAB VIEW ONLY) 48.95 mg/dL; Microalb ug/mg Crea 90.3 ug/mg Cr
== END 2019-07-04 02:38 ==
PROVIDERS: PCP Family Medicine; Visit Provider Family Medicine
DX: E83.42 Hypomagnesemia (principal); E11.9 Type 2 diabetes mellitus without complications
CPT/HCPCS: 36415; 80048; 82043; 82570; 83036; 83735

== ENCOUNTER → 2019-09-12 12:13 | Outpatient (BNVA) | payer MEDICARE, SELFPAY | PROVIDERS: PCP Family Medicine; Referring Provider Family Medicine; Visit Provider Internal Medicine Cardiovascular Disease | DX: I25.10 Atherosclerotic heart disease of native coronary artery without angina pectoris (principal); I35.1 Nonrheumatic aortic (valve) insufficiency; I21.9 Acute myocardial infarction, unspecified; I10 Essential (primary) hypertension; E11.9 Type 2 diabetes mellitus without complications; Z79.84 Long term (current) use of oral hypoglycemic drugs | CPT/HCPCS: 99204 ==

== ENCOUNTER 2019-09-19 16:31 | Emergency (ER) | payer MEDICARE, SELFPAY ==
[2019-09-19] VITALS (45 sets, daily range): BP systolic 88–184; BP diastolic 39–64; PULSE 56–75; RESP 10–22; TEMP 36.5–36.8; O2SAT 96–100
--- NOTE | 2019-09-19 16:50 | DI.RAD_ITS ---
EXAM: XR CHEST 2V PA LATERAL INDICATION: cough, sob, r/o acute disease. COMPARISON: XR PORTABLE CHEST AP from 09/14/2018 TECHNIQUE: 2D digital imaging was performed. FINDINGS: Heart size and pulmonary vasculature are within normal limits. No infiltrates are seen. No pleural effusion or pneumothorax is identified. Degenerative changes are seen in the spine. IMPRESSION: No acute pulmonary process. 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
--- NOTE | 2019-09-19 16:51 | ED.GENADUL_ITS ---
Discharge Plan Disposition Patient Disposition: AGAINST MEDICAL ADVICE Condition: Stable Discharge Details Chief Complaint: SOB Clinical Impression: Shortness of breath Primary Care Provider: Rosi Bower ED Provider: Jerome Lou Home Meds and New Rx's Prescriptions: No Action metformin [Glucophage] 1,000 mg tablet 1,000 - 1,500 mg PO as directed RF: 0 Natures Best Probiotic 1 tab PO DAILY RF: 0 ascorbic acid (vitamin C) 500 mg tablet 500 mg PO DAILY RF: 0 chlorthalidone 50 mg tablet 50 mg PO DAILY Qty: 90 RF: 6 (DME) Blood Glucose Test 1 EACH strip 1 ea Miscellaneous DAILY Qty: 100 RF: 2 ropinirole 0.5 mg tablet 0.5 mg PO HS Qty: 90 RF: 4 losartan 100 mg tablet 100 mg PO QAM Qty: 90 RF: 4 atorvastatin 80 mg tablet 80 mg PO DAILY Qty: 90 RF: 4 sertraline [Zoloft] 50 mg tablet 50 mg PO HS Qty: 90 RF: 4 glipizide 10 mg tablet 10 mg PO BID Qty: 180 RF: 3 metoprolol tartrate 25 mg tablet 25 mg PO BID Qty: 180 RF: 3 nitroglycerin 0.4 mg tablet, sublingual 0.4 mg SL ONCE Qty: 20 RF: 0 ferrous sulfate 325 mg (65 mg iron) tablet See Rx Instructions mg PO QID Qty: 270 RF: 3 Slow-Mag 71.5 mg tablet,delayed release (DR/EC) 214.5 mg PO DAILY Qty: 90 RF: 3 aspirin [Aspir-81] 81 MG tablet,delayed release (DR/EC) 81 mg PO DAILY RF: 0 Discharge Instructions Instructions: Upper Respiratory Infection (ED), Dyspnea (ED) Additional Instructions: Return immediately to the emergency department for any new or significant worsening of symptoms. This can include any chest discomfort that is worsening, fever chills, difficulty breathing, or any further concerns. Otherwise it is recommended that you follow-up with your primary care provider for reassessment and possible arrangement of outpatient testing as needed Referrals: Rosi Bower MD [Primary Care Provider] - 3 days Discharge Data Discharge Date/Time-TO BE ENTERED AT DEPARTURE: 09/19/19 22:35 Medical Decision Making <Bell Wilson DO - Last Filed: 09/21/19 09:35> 1640 -- 69-year-old female with history of diabetes, hypertension, hyperlipidemia, ID with 2 cardiac stents presents with cold-like symptoms for the past few days and shortness of breath that started today. She states shortness of breath similar to what she had with previous ID last year. No DVT/PE risk factors. History presentation not consistent with PE or dissection. Lungs clear. No leg swelling. EKG notes a rate of 65, sinus with no acute ST T wave ischemic changes. Differential diagnosis includes ACS, electrolyte abnormality, arrhythmia, pneumonia, PE. Will place an IV, screening labs, chest x-ray. 1799 -- Labs reviewed and unremarkable. Normal white blood cell count, troponin and BNP. D-dimer negative per age-adjusted cut off. Heart score of 4 which is a moderate risk. Discussed with patient that considering her age and risk factors, admission for serial troponins is reasonable but she is declining admission at this time. She is agreeable to stay for a second troponin. 1999 -- case endorsed to Pedro Lou to follow-up on second troponin and final disposition. Medical Records Medical records reviewed: Yes I reviewed the patient's medical records. Imaging Data Radiologic Study: Radiologist's impression: XR Chest, 2 Views Exam date and time: 09/19/2019 5:17 PM Clinical history: 69 years old, female; Other: Cough, SOB, R/O acute disease TECHNIQUE: Imaging protocol: XR of the chest Views: 2 views. COMPARISON: CR XR PORTABLE CHEST AP 09/14/2018 11:40 AM FINDINGS: Lungs: Lungs are clear. No pulmonary consolidation. Pleural space: Chronic blunting of the right lateral costophrenic angle, unchanged. No pleural effusion or pneumothorax. Heart/Mediastinum: Unremarkable. No cardiomegaly. Bones/joints: Degenerative changes of aging throughout the thoracic spine. IMPRESSION: No acute abnormality. Lab Data Lab results reviewed: Yes I reviewed the patient's lab results. Labs: Laboratory Tests Range/Units 09/19/19 09/19/19 09/19/19 16:55 16:55 16:55 WBC (4.4-10.8) k/cumm 7.37 RBC (4.00-5.20) m/cumm 4.35 Hgb (12.0-15.5) g/dL 12.7 Hct (36.0-46.0) % 38.8 MCV (80-95) fL 89.2 MCH (27.0-33.0) pg 29.2 MCHC (32.0-36.0) g/dL 32.7 RDW (11.7-14.6) % 12.6 Plt Count (130-400) x1000/uL 186 MPV (8.0-11.0) fL 12.2 H Immature Gran % 0.1 Neutrophils % 59.5 Lymphocytes % 29.0 Monocytes % 9.0 Eosinophils % 2.0 Basophils % 0.4 Absolute Neutrophils (1.2-6.7) k/cumm 4.38 Absolute Lymphocytes (1.2-3.4) k/cumm 2.14 Absolute Monocytes (0.11-0.7) k/cumm 0.66 Absolute Eosinophils (0.0-0.7) k/cumm 0.15 Absolute Basophils (0.0-0.2) k/cumm 0.03 D-Dimer (<500) ng/mlFEU 694 H Sodium (136-145) mmol/L 142 Potassium (3.5-5.1) mmol/L 3.9 Chloride (98-107) mmol/L 106 Carbon Dioxide (21.0-32.0) mmol/L 24.8 Anion Gap (3-11) mmol/L 11.2 H BUN (7-18) mg/dL 25 H Creatinine (0.55-1.02) mg/dL 0.83 Estimated GFR/1.73 m2 (mL/min/1.73m2) >= 60.00 Glucose (70-100) mg/dL 87 Calcium (8.5-10.1) mg/dL 9.3 Magnesium (1.8-2.4) mg/dL 1.2 L Total Bilirubin (0.2-1.0) mg/dL 0.2 AST (15-37) U/L 18 ALT (14-59) U/L 29 Alkaline Phosphatase (46-116) U/L 91 Troponin I (0.00-0.06) ng/mL < 0.05 NT-Pro-B Natriuret Pep ( - 299) pg/mL 224 Total Protein (6.4-8.2) g/dL 7.3 Albumin (3.4-5.0) g/dL 3.8 Range/Units 10/29/19 21:28 WBC (4.4-10.8) k/cumm RBC (4.00-5.20) m/cumm Hgb (12.0-15.5) g/dL Hct (36.0-46.0) % MCV (80-95) fL MCH (27.0-33.0) pg MCHC (32.0-36.0) g/dL RDW (11.7-14.6) % Plt Count (130-400) x1000/uL MPV (8.0-11.0) fL Immature Gran % Neutrophils % Lymphocytes % Monocytes % Eosinophils % Basophils % Absolute Neutrophils (1.2-6.7) k/cumm Absolute Lymphocytes (1.2-3.4) k/cumm Absolute Monocytes (0.11-0.7) k/cumm Absolute Eosinophils (0.0-0.7) k/cumm Absolute Basophils (0.0-0.2) k/cumm D-Dimer (<500) ng/mlFEU Sodium (136-145) mmol/L Potassium (3.5-5.1) mmol/L Chloride (98-107) mmol/L Carbon Dioxide (21.0-32.0) mmol/L Anion Gap (3-11) mmol/L BUN (7-18) mg/dL Creatinine (0.55-1.02) mg/dL Estimated GFR/1.73 m2 (mL/min/1.73m2) Glucose (70-100) mg/dL Calcium (8.5-10.1) mg/dL Magnesium (1.8-2.4) mg/dL Total Bilirubin (0.2-1.0) mg/dL AST (15-37) U/L ALT (14-59) U/L Alkaline Phosphatase (46-116) U/L Troponin I (0.00-0.06) ng/mL < 0.05 NT-Pro-B Natriuret Pep ( - 299) pg/mL Total Protein (6.4-8.2) g/dL Albumin (3.4-5.0) g/dL ECG Data Attestation: I personally reviewed and interpreted this ECG (s) as follows: Interpretation: Rate of 65, sinus, no acute ST elevation or depression. [place] 168. QTc 412. QRS 88. <Jerome Lou NP - Last Filed: 09/19/19 23:47> Patient signed out to me by Dr. Bell Wilson. Patient pending serial troponin and EKG. Second EKG was performed and shows no acute change noted from previous EKG, sinus rhythm, rate of 61, no evidence of STEMI. Review of second troponin shows less than 0.05 again negative. Reassessed patient and patient continues to state that she would prefer to go home. Discussed risks versus benefit along with further testing. It is highly considered that that is is more of a viral cold in nature given that patient has had cold-like symptoms but given that she just stopped her Plavix and does have cardiac history with moderate heart score again admission was discussed. At this time she states that this does not feel like her previous heart attack as she only has shortness of breath that is not quite the same as before and has no chest pressure. Close return precautions were discussed otherwise patient placed upon follow-up list with primary care for consideration of outpatient stress testing and any other further work-up as needed. Patient was given AMA paperwork simply due to having moderate heart score. After discussion of diagnosis and plan of care patient has no further needs, questions, or concerns and states clear understanding to return to the emergency department for any worsening symptoms. HPI <Bell Wilson DO - Last Filed: 09/21/19 09:35> General Mode of arrival: ambulatory . Date/Time Provider Initiated Documentation: 09/19/19 16:40 . Limitations to Documentation: no limitations . Information obtained by: patient . HPI Narrative: Patient is a 69-year-old female with a history of diabetes, coronary artery disease, 2 cardiac stents, hypertension and hyperlipidemia who presents for cold symptoms for the past few days and shortness of breath today. Patient states she has had runny nose productive of green and yellow sputum and cough occasionally productive of clear sputum. She denies any known fever, change in appetite, dizziness, and nausea/vomiting. She states today she was sitting at home when she developed shortness of breath. She states it occurs at random and denies any aggravating or alleviating factors. She denies any chest pain. She states that she had a heart attack with 2 stents placed 1 year ago in which she had similar presentation but also associated with chest heaviness. Related Data Home Medications Medication Instructions Recorded Confirmed aspirin [Aspir 81] 81 mg PO DAILY 02/02/13 09/20/19 blood sugar diagnostic [Blood #100 strip 02/12/17 09/20/19 Glucose Test] ropinirole 0.5 mg tablet 0.5 mg PO HS #90 tab 01/31/19 09/20/19 losartan 100 mg tablet 100 mg PO QAM #90 tab 04/23/19 09/20/19 atorvastatin 80 mg tablet 80 mg PO DAILY #90 tab-cap 06/01/19 09/20/19 sertraline 50 mg tablet 50 mg PO HS #90 tab-cap 06/01/19 09/20/19 glipizide 10 mg tablet 10 mg PO BID #180 tab-cap 06/13/19 09/20/19 metoprolol tartrate 25 mg tablet 25 mg PO BID #180 tab 06/22/19 09/20/19 nitroglycerin 0.4 mg sublingual 0.4 mg SL ONCE #20 tab 07/14/19 09/20/19 tablet Natures Best Probiotic 1 tab PO DAILY 09/12/19 09/20/19 ascorbic acid (vitamin C) 500 mg 500 mg PO DAILY 09/12/19 09/20/19 tablet chlorthalidone 50 mg tablet 50 mg PO DAILY #90 tab 09/12/19 09/20/19 ferrous sulfate 325 mg (65 mg See Rx Instructions PO QID #270 tab 09/12/19 09/20/19 iron) tablet metformin 1,000 mg tablet 1,000 - 1,500 mg PO as directed 09/12/19 09/20/19 tab magnesium chloride 71.5 mg 214.5 mg PO DAILY #90 tab 09/20/19 (magnesium chloride) tablet,delayed release Previous Rx's Medication Instructions Recorded ropinirole 0.5 mg tablet 0.5 mg PO HS #90 tab 01/31/19 losartan 100 mg tablet 100 mg PO QAM #90 tab 04/23/19 atorvastatin 80 mg tablet 80 mg PO DAILY #90 tab-cap 06/01/19 sertraline 50 mg tablet 50 mg PO HS #90 tab-cap 06/01/19 glipizide 10 mg tablet 10 mg PO BID #180 tab-cap 06/13/19 metoprolol tartrate 25 mg tablet 25 mg PO BID #180 tab 06/22/19 nitroglycerin 0.4 mg sublingual 0.4 mg SL ONCE #20 tab 07/14/19 tablet chlorthalidone 50 mg tablet 50 mg PO DAILY #90 tab 09/12/19 ferrous sulfate 325 mg (65 mg See Rx Instructions PO QID #270 tab 09/12/19 iron) tablet magnesium chloride 71.5 mg 214.5 mg PO DAILY #90 tab 09/20/19 (magnesium chloride) tablet,delayed release Allergies Allergy/AdvReac Type Severity Reaction Status Date / Time hydrochlorothiazide AdvReac Mild GI upset Verified 09/20/19 10:18 lisinopril AdvReac Mild cough Verified 09/20/19 10:18 naproxen AdvReac Mild Itching Verified 09/20/19 10:18 oxycodone HCl [From Percocet] AdvReac Mild n and v Verified 09/20/19 10:18 tetracycline AdvReac Mild G[set Verified 09/20/19 10:18 General Stated Complaint: SOB SHARRON: 3 Review of Systems <Bell Wilson DO - Last Filed: 09/21/19 09:35> All systems reviewed & are unremarkable except as noted in HPI and below Constitutional Constitutional: Reports as per HPI, Denies chills and Denies fever(s) Eyes Eyes: Denies blurry vision ENT Ears, Nose, Mouth, and Throat: Denies dizziness, Denies sore throat and Denies throat swelling Cardiovascular Cardiovascular: Denies chest pain and Reports dyspnea Respiratory Respiratory: Denies cough and Reports dyspnea Gastrointestinal Gastrointestinal: Denies abdominal pain, Denies diarrhea and Denies vomiting Genitourinary Genitourinary: Denies hematuria and Denies dysuria Musculoskeletal Musculoskeletal: Denies back pain and Denies numbness Integumentary/Breasts Skin/Breast: Denies lesions and Denies rash Neurologic Neurologic: Denies dizziness, Denies focal weakness and Denies numbness Allergic/Immunologic Allergic/Immunologic: Denies throat swelling PFSH <Bell Wilson DO - Last Filed: 09/21/19 09:35> Medical History Carpal tunnel syndrome (Acute 09/21/13) Cataracts, both eyes (Acute 08/24/17) [facility]; MILD Depressive disorder (Acute) Diabetes mellitus (Acute 04/26/13) Ophtalmo. neg. 07/2016)/no nephro 2016 Essential hypertension (Acute 10/24/13) Hyperlipidemia (Acute 04/26/13) Increased body mass index (Acute) Moderate aortic regurgitation (Acute 04/09/15) echo. : stable x 03/2015/ -2017:stable Myocardial infarct (Chronic) Aug 2018. Stenting Normal vascular exam (Acute) no lower extremity arterial occlusive disease/ [facility] [place] [facility] [place]. 08-25-2018 Osteoarthritis of knee (Acute 09/24/14) Synvisc on going Primary osteoarthritis of left knee (Chronic 06/16/18) Sensorineural hearing loss, bilateral (Acute 03/18/17) Status post left heart catheterization (LHC) (Acute ~08/2018) 2 stents RCA. Surgical History Abdominal hysterectomy (~1997) History of carpal tunnel release of both wrists (Acute ~2015) Family History Mother Diabetes Father Stroke Sister Neoplasm Sister No problems noted. 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: Yarsanism Special [place] needs: No Do you feel safe at home: Yes Do you feel safe in your relationship?: Yes Exam <Bell Wilson DO - Last Filed: 09/21/19 09:35> Const General: cooperative, healthy appearing and no acute distress HENMT Head: normal to inspection Face and sinus: normal facial exam Eyes General: appearance normal, both eyes and all related structures Pupils: PERRL EOM: EOM intact bilaterally Neck Neck: normal visual inspection and No submandibular swelling Lymphatic: no lymphadenopathy noted Chest Chest: normal inspection of the chest and no tenderness Resp Effort & Inspection: normal respiratory effort and able to speak in complete sentences Auscultation: clear to auscultation bilaterally Cardio Rate: regular rate Rhythm: regular rhythm GI Inspection: normal to inspection Palpation: soft, not firm, not rigid and nontender Auscultation: normal bowel sounds Back/Spine/Pelvis Thoracic/Lumbar Spine: thoracic and lumbar spine normal to inspection Pelvis: no pain with anterior-posterior compression Skin General skin exam: no rashes or lesions noted Neuro General: alert, awake and oriented x3 Cognition: normal cognition Speech: speech normal Motor: muscle tone normal throughout Sensory Exam: no sensory deficits noted Extrem General: normal to inspection, full ROM, normal capillary refill, no calf tenderness bilaterally and no edema Psych Appearance: grossly normal Mental Status: mental status grossly normal Speech and Movement: speech and movement normal Affect: normal affect Course <Bell Wilson DO - Last Filed: 09/21/19 09:35> Vital Signs Vital signs: Vital Signs Temperature 98.2 F 09/19/19 16:37 Pulse 75 09/19/19 16:37 Respiratory Rate 20 09/19/19 16:37 Blood Pressure 184/59 H 09/19/19 16:37 Pulse Oximetry 97 09/19/19 16:37 Temperature 98.2 F 09/19/19 16:37 Temperature Source Temporal Artery Scan 09/19/19 16:37 Pulse 75 09/19/19 16:37 Respiratory Rate 20 09/19/19 16:43 Respiratory Effort Non-Labored 09/19/19 16:43 Respiratory Depth Normal 09/19/19 16:43 Respiratory Pattern Normal 09/19/19 16:43 Blood Pressure 184/59 H 09/19/19 16:37 Blood Pressure Position Sitting 09/19/19 16:37 Pulse Oximetry 97 09/19/19 16:37 Oxygen Delivery Method Room Air 09/19/19 16:37 Oxygen Flow Rate 0 09/19/19 16:37 Pain Level 7 09/19/19 16:37 Sign Out <Bell Wilson DO - Last Filed: 09/21/19 09:35> Sign Out Data: Sign Out Comment: Follow-up on repeat troponin and EKG at 9 PM and final disposition. Last updated by Bell Wilson DO at 09/19/19 20:23
[2019-09-19 17:28] LABS: Abs Immature Grans 0.01 k/cumm (0.0-0.09); Absolute Basophil Count 0.03 k/cumm (0.0-0.2); Absolute Eosinophil Count 0.15 k/cumm (0.0-0.7); Absolute Lymphocyte Count 2.14 k/cumm (1.2-3.4); Absolute Monocyte Count 0.66 k/cumm (0.11-0.7); Absolute Neutrophil Count 4.38 k/cumm (1.2-6.7); Basophils % 0.4; HCT 38.8 % (36.0-46.0); HGB 12.7 g/dL (12.0-15.5); Immature Grans % 0.1; Mean Corp. HGB Concentration 32.7 g/dL (32.0-36.0); Mean Corpuscular Hemoglobin 29.2 pg (27.0-33.0); Mean Corpuscular Volume 89.2 fL (80-95); Mean Platelet Volume 12.2 fL (8.0-11.0); Neutrophils % 59.5; Platelet Count 186 x1000/uL (130-400); RBC 4.35 m/cumm (4.00-5.20); RBC Distribution Width 12.6 % (11.7-14.6); White Blood Cell Count 7.37 k/cumm (4.4-10.8)
[2019-09-19 17:32] LABS: ALT 29 U/L (14-59); AST 18 U/L (15-37); Albumin 3.8 g/dL (3.4-5.0); Alkaline Phosphatase 91 U/L (46-116); Anion Gap 11.2 mmol/L (3-11); BUN 25 mg/dL (7-18); Bilirubin, Total 0.2 mg/dL (0.2-1.0); CO2 24.8 mmol/L (21.0-32.0); CREATININE 0.83 mg/dL (0.55-1.02); Calcium 9.3 mg/dL (8.5-10.1); Chloride 106 mmol/L (98-107); Glucose 87 mg/dL (70-100); Magnesium 1.2 mg/dL (1.8-2.4); NT-proBNP 224 pg/mL; Potassium 3.9 mmol/L (3.5-5.1); Sodium 142 mmol/L (136-145); Total Protein 7.3 g/dL (6.4-8.2)
[2019-09-19 17:33] LABS: Troponin I < 0.05 ng/mL (0.00-0.06)
--- NOTE | 2019-09-19 17:33 | DI.VRAD_ITS ---
PROCEDURE INFORMATION: Exam: XR Chest, 2 Views Exam date and time: 09/19/2019 5:17 PM Clinical history: 69 years old, female; Other: Cough, SOB, R/O acute disease TECHNIQUE: Imaging protocol: XR of the chest Views: 2 views. COMPARISON: CR XR PORTABLE CHEST AP 09/14/2018 11:40 AM FINDINGS: Lungs: Lungs are clear. No pulmonary consolidation. Pleural space: Chronic blunting of the right lateral costophrenic angle, unchanged. No pleural effusion or pneumothorax. Heart/Mediastinum: Unremarkable. No cardiomegaly. Bones/joints: Degenerative changes of aging throughout the thoracic spine. IMPRESSION: No acute abnormality. Dictated and Authenticated by: Juan Daniel Leon MD. Ordering:JUDY Luu MD
[2019-09-19 19:04] LABS: D-Dimer 694 ng/mlFEU (<500)
[2019-09-19] MEDS: Magnesium Oxide 400 MG TAB PO (21:26)
[2019-09-19 21:56] LABS: Troponin I < 0.05 ng/mL (0.00-0.06)
--- NOTE | 2019-09-19 22:35 | NUR.NOTE ---
Nursing Note: FAXED REFERAL 09/19/19
== END 2019-09-19 22:35 | disposition left against medical advice (07) ==
PROVIDERS: Physician Assistant; Emergency Provider Nurse Practitioner Family; PCP Family Medicine
DX: R06.02 Shortness of breath (principal); I25.2 Old myocardial infarction; I10 Essential (primary) hypertension; E11.9 Type 2 diabetes mellitus without complications; Z95.5 Presence of coronary angioplasty implant and graft; Z53.29 Procedure and treatment not carried out because of patient's decision for other reasons
CPT/HCPCS: 36415; 80053; 93005; 99285; 71046; 83735; 83880; 84484; 85025; 85379; 93010

== ENCOUNTER → 2019-10-24 09:13 | Outpatient (BNVA) | payer MEDICARE, SELFPAY | PROVIDERS: PCP Family Medicine; Referring Provider Family Medicine; Visit Provider Orthopaedic Surgery | DX: G56.03 Carpal tunnel syndrome, bilateral upper limbs (principal); M25.531 Pain in right wrist; M25.532 Pain in left wrist | CPT/HCPCS: 99214 ==

== ENCOUNTER → 2019-11-07 13:28 | Outpatient (BNVA) | payer MEDICARE, SELFPAY | PROVIDERS: PCP Family Medicine; Referring Provider Orthopaedic Surgery; Visit Provider Nurse Practitioner Adult Health | DX: G56.03 Carpal tunnel syndrome, bilateral upper limbs (principal) | CPT/HCPCS: 95909; 99203; 99214 ==

== ENCOUNTER 2019-11-28 01:56 | Outpatient (CLI) | payer MEDICARE, SELFPAY ==
[2019-11-28 07:27] LABS: HCT 39.7 % (36.0-46.0); HGB 13.2 g/dL (12.0-15.5)
[2019-11-28 08:09] LABS: COMMENT (LAB VIEW ONLY) 70.03 mg/dL; Microalb ug/mg Crea 38.8 ug/mg Cr
[2019-11-28 08:10] LABS: Iron 79 ug/dL (50-170); Total Iron Binding Capacity 273 ug/dL (250-450); Transferrin Sat 29 % (15-50)
[2019-11-28 08:25] LABS: ALT 26 U/L (14-59); AST 20 U/L (15-37); Albumin 3.8 g/dL (3.4-5.0); Alkaline Phosphatase 84 U/L (46-116); Anion Gap 10.3 mmol/L (3-11); BUN 25 mg/dL (7-18); Bilirubin, Total 0.4 mg/dL (0.2-1.0); CO2 24.7 mmol/L (21.0-32.0); CREATININE 0.74 mg/dL (0.55-1.02); Calcium 8.8 mg/dL (8.5-10.1); Chloride 108 mmol/L (98-107); Ferritin 44 ng/mL (8-252); Glucose 139 mg/dL (74-106); Magnesium 1.1 mg/dL (1.8-2.4); Potassium 4.2 mmol/L (3.5-5.1); Sodium 143 mmol/L (136-145); Total Protein 6.8 g/dL (6.4-8.2)
[2019-11-28 14:43] LABS: Hemoglobin A1C 6.9 % (3.8-5.6)
== END 2019-11-28 02:16 ==
PROVIDERS: PCP Family Medicine; Visit Provider Family Medicine
DX: D50.9 Iron deficiency anemia, unspecified (principal); E11.9 Type 2 diabetes mellitus without complications; E83.42 Hypomagnesemia
CPT/HCPCS: 36415; 80053; 82043; 82570; 82728; 83036; 83540; 83550; 83735; 85014; 85018

== ENCOUNTER 2019-12-14 09:35 | Outpatient (CLI) | payer MEDICARE, SELFPAY ==
--- NOTE | 2019-12-14 09:17 | DI.RAD_ITS ---
EXAM: XR KNEE LT 3V AP,LAT,MADHURI INDICATION: DJD. COMPARISON: No exams were available for comparison TECHNIQUE: 2D digital imaging was performed. FINDINGS: There is marked narrowing of the medial femoral tibial joint space with flattening of the articular s urfaces. There is subchondral sclerosis and periarticular spurring present. In the lateral femoral tibial joint space, there is mild periarticular spurring present. There is joint space narrowing and periarticular spurring seen in the patellofemoral joint. There is a joint effusion present. No fra cture or dislocation is seen. Vascular calcifications are present in the soft tissues. IMPRESSION: Marked osteoarthritis of the knee.
== END 2019-12-14 09:55 ==
PROVIDERS: PCP Family Medicine; Referring Provider Family Medicine; Visit Provider Student in an Organized Health Care Education/Training Program
DX: M25.562 Pain in left knee (principal); M17.12 Unilateral primary osteoarthritis, left knee; M25.462 Effusion, left knee; E11.9 Type 2 diabetes mellitus without complications; I10 Essential (primary) hypertension
CPT/HCPCS: 73562; 99214

== ENCOUNTER 2020-01-02 13:32 | Outpatient (CLI) | payer OTHER, SELFPAY | END 2020-01-02 13:52 | PROVIDERS: PCP Family Medicine; Visit Provider Orthopaedic Surgery | DX: Z01.818 Encounter for other preprocedural examination (principal) ==

== ENCOUNTER 2020-01-08 06:16 | Day surgery (SDC) | payer OTHER, SELFPAY ==
[2020-01-02 13:46] VITALS: BP 144/66; PULSE 71; RESP 16; O2SAT 97
[2020-01-08 06:28] VITALS: BP 151/60; PULSE 65; RESP 16; TEMP 36.7; O2SAT 97
[2020-01-08] MEDS: Lactated Ringers 1,000 ML 80 ML IV (07:13)
[2020-01-08] MEDS: Bupivacaine 0.5% Pres-Free 30 ML VIAL (07:54)
--- NOTE | 2020-01-08 08:23 | PDOC.DSDIS_ITS ---
Discharge Plan Disposition Patient Disposition: HOME Condition: Good Discharge Details Reason For Visit: OPEN CARPAL TUNNEL RELEASE R Attending Provider: Jose Antonio Wilson Primary Care Provider: Rosi Bower Home Meds and New Rx's Prescriptions: New hydrocodone-acetaminophen 5-325 mg tablet 1 tab PO Q6H PRN (Reason: pain) Qty: 10 RF: 0 ibuprofen 600 mg tablet 600 mg PO TID Qty: 30 RF: 0 Continued Natures Best Probiotic 1 tab PO DAILY RF: 0 ascorbic acid (vitamin C) 500 mg tablet 500 mg PO DAILY RF: 0 chlorthalidone 50 mg tablet 50 mg PO DAILY Qty: 90 RF: 6 glipizide 10 mg tablet 10 mg PO BID Qty: 180 RF: 3 metformin [Glucophage] 1,000 mg tablet 1,000 - 1,500 mg PO as directed Qty: 225 RF: 4 metoprolol tartrate 25 mg tablet 25 mg PO BID Qty: 180 RF: 4 ropinirole 0.5 mg tablet 0.5 mg PO HS Qty: 90 RF: 4 sertraline [Zoloft] 50 mg tablet 50 mg PO HS Qty: 90 RF: 4 (DME) Blood Glucose Test 1 EACH strip 1 ea Miscellaneous DAILY Qty: 100 RF: 2 nitroglycerin 0.4 mg tablet, sublingual 0.4 mg SL ONCE Qty: 20 RF: 0 ferrous sulfate 325 mg (65 mg iron) tablet See Rx Instructions mg PO QID Qty: 270 RF: 3 Slow-Mag 71.5 mg tablet,delayed release (DR/EC) 214.5 mg PO DAILY Qty: 30 RF: 0 aspirin [Aspir-81] 81 MG tablet,delayed release (DR/EC) 81 mg PO DAILY RF: 0 atorvastatin [Lipitor] 80 mg tablet 80 mg PO DAILY RF: 0 losartan [Cozaar] 100 mg tablet 100 mg PO QAM RF: 0 Discharge Instructions Additional Instructions: Elevate R hand above heart level as much as possible for next 48 hours. Wiggle fingers R hand 10 times/hour when awake to prevent swelling. Keep splint and dressings dry and in place until return. Return to 's office in 2 weeks. May use R hand as much as your discomfort allows. Take ibuprofen 3 times/day as prescribed to decrease swelling and inflammation. Take tylenol for mild pain. Take hydrocodone for breakthru pain, if needed. Referrals: Jose Antonio Wilson MD [ [facility] STAFF PHYSICIAN] - (f/u in 2 weeks.) Equipment/Supplies: Splint Activity:: Activity as Tolerated Remove Dressings/Wound Care:: Do Not Remove Shower/Bathe:: Cover Diet:: As Tolerated Discharge Orders Discharge Orders: Discharge Order (Routine); Ordered 01/08/20 Ordered By: Jose Antonio Wilson DS: Diagnosis Discharge Diagnosis (1) Carpal tunnel syndrome, right: Status: Chronic
[2020-01-08 09:07] VITALS: BP 165/57; PULSE 60; RESP 18; TEMP 36.2; O2SAT 99
--- NOTE | 2020-01-09 14:47 | ROE_ITS ---
DATE OF PROCEDURE: January 08, 2020 PREOPERATIVE DIAGNOSIS: Recurrent carpal tunnel syndrome, right. POSTOPERATIVE DIAGNOSIS: Same. PROCEDURE: Open carpal tunnel release right with external neurolysis of the median nerve. ANESTHESIA: IV Regional. SURGEON: Jose Antonio Wilson M.D. SEO SPECIALIST: Jose Kaiser INDICATIONS: This is a 69-year-old white female who underwent an open carpal tunnel release by Dr. Danita hernández in July of 2016. She initially did well with good relief of her symptoms. Over the co urse of the next couple of years she's noticed a recurrence of symptoms. Especially in the last few months. She finds that she has trouble handling small objects with her right hand. It's difficult f or her to zip up her zipper without looking at things. She is dropping things frequently. She has a lso had apparent recurrence on the left side as well. Repeat nerve conduction studies showed continu ed compression of the median nerve at the carpal tunnel bilaterally. She is a right hand dominant in dividual. Because of the recurrence of symptoms that is proven electrically several years after prio r surgery, I think that exploration of the median nerve with an open carpal tunnel release and drapery head former al neurolysis of the nerve was indicated. I recommended that she treat the most symptomatic side fir st. Once she has recovered from this and she is happy with the results, she could consider the same procedure on the left side. The risks and complications of the procedure have been explained to the patient in detail preoperatively. PROCEDURE: The patient was taken to the operating room on 01/08/2020. She was placed supine on the o perating table. IV regional anesthetic was administered to the right upper extremity. Once good ane sthesia was obtained, the right hand, wrist and forearm were prepped and draped free in the usual roxann rile fashion. I incorporated the incisional scar from her prior open carpal tunnel release and exten ded the incision distally to the distal edge of the volar carpal ligament and extended it proximally about two inches proximal to the proximal flexion crease of the wrist. The incision was carried down to the fascia. Normal fascia was incised in the forearm proximally in the incision and the median n erve was identified. The nerve was carefully protected while a release of the carpal tunnel was perf ormed on the ulnar side of the carpal canal. Once the release was completed, I then used Littler sci ssors and carefully performed an external neurolysis of the median nerve. I was able to identify a s ection in the carpal canal where the nerve was most compressed. This caused a narrowing of the nerve with minimal discoloration. The exploration was carried out up to the area where the median nerve w as dividing into the digital nerves. I released the fascia proximally subcutaneous for another coupl e of inches from the edge of the incision. The wound was irrigated with saline solution. The wound margins were infiltrated with 0.5% Marcaine solution. A median nerve block was performed with 0.5% M arcaine solution. All bleeders were cauterized and a dry wound was obtained at the end of the proced ure. The skin edges were approximated with vertical mattress sutures, interrupted, of #4-0 nylon sut ures, along with simple sutures of #4-0 nylon. The wound was dressed with Xeroform gauze, sterile ga uze 4x4s, wrapped with a Kerlix bandage and then wrapped with a 3-inch MOLLY bandage. She was placed i n a commercial cockup wrist splint. The patient's IV regional anesthesia was reversed without compli cation. There was no breakthrough bleeding to the dressings. She was discharged to the recovery [facility] in good condition. The patient was later discharged home from the Day Surgery Unit when fully recovered from her IV zaheer onal anesthesia. She was given instructions to elevate her right hand above heart level as much as p ossible for the next 48 hours. She was encouraged to wiggle her fingers ten times an hour to prevent swelling of the digits. She was advised that the median nerve block may last for 24 hours postop. She is to keep her dressings and splint dry and intact until she follows up in my office in two weeks . She was given a prescription for breakthrough pain of Hydrocodone with APAP 5/325, one tablet ever y six hours, as needed. She will take Tylenol or ibuprofen for mild pain.
== END 2020-01-08 09:30 | disposition home or self-care (01) ==
PROVIDERS: PCP Family Medicine; Visit Provider Orthopaedic Surgery
PROC: (CPT 64721; principal; 2020-01-08 07:30)
DX: G56.01 Carpal tunnel syndrome, right upper limb (principal)
CPT/HCPCS: 64721; J1885; J2704; L3908

== ENCOUNTER → 2020-01-23 10:40 | Outpatient (BNVA) | payer MEDICARE, SELFPAY | PROVIDERS: PCP Family Medicine; Referring Provider Family Medicine; Visit Provider Orthopaedic Surgery | DX: G56.01 Carpal tunnel syndrome, right upper limb (principal) ==

== ENCOUNTER 2020-01-25 08:59 | Outpatient (CLI) | payer MEDICARE, SELFPAY ==
--- NOTE | 2020-01-25 08:45 | DI.RAD_ITS ---
EXAM: XR STANDING ALIGNMENT CLINICAL HISTORY: L knee OA. TECHNIQUE: 2D digital imaging was performed. COMPARISON: No exams were available for comparison FINDINGS: BONES: No acute fracture is present. No bony destructive lesion is seen. The right lower extremity me asures 79.6 cm. Left lower extremity measures 80 cm. JOINTS: There are [id number] degenerative changes in the right knee characterized by medial com partment joint space narrowing and periarticular spurring. There are moderately severe degenerative changes of the left knee characterized by marked narrowing of the medial femoral tibial joint space, periarticular spurring, and chondrocalcinosis. SOFT TISSUE: Surgical clips are seen in the pelvis. Vascular calcifications are seen in the soft tis sues. IMPRESSION: Bilateral osteoarthritis of the knees. DATA REPOSITORY: RADIATION DOSE DELIVERED:
== END 2020-01-25 09:19 ==
PROVIDERS: PCP Family Medicine; Referring Provider Family Medicine; Visit Provider Student in an Organized Health Care Education/Training Program
DX: M17.11 Unilateral primary osteoarthritis, right knee (principal); M17.12 Unilateral primary osteoarthritis, left knee; Z98.890 Other specified postprocedural states
CPT/HCPCS: 99213; 77073

== ENCOUNTER → 2020-03-05 09:48 | Outpatient (BNVA) | payer MEDICARE, SELFPAY | PROVIDERS: PCP Family Medicine; Referring Provider Family Medicine; Visit Provider Orthopaedic Surgery | DX: Z47.89 Encounter for other orthopedic aftercare (principal); G56.01 Carpal tunnel syndrome, right upper limb ==

== ENCOUNTER → 2020-03-12 09:45 | Outpatient (BNVA) | payer MEDICARE, SELFPAY | PROVIDERS: PCP Family Medicine; Referring Provider Family Medicine; Visit Provider Internal Medicine Cardiovascular Disease | DX: I25.10 Atherosclerotic heart disease of native coronary artery without angina pectoris (principal); I35.1 Nonrheumatic aortic (valve) insufficiency; I10 Essential (primary) hypertension; Z87.891 Personal history of nicotine dependence | CPT/HCPCS: 99214; 99443 ==

== ENCOUNTER 2020-03-22 01:45 | Outpatient (CLI) | payer MEDICARE, SELFPAY ==
[2020-03-22 10:00] LABS: Iron 120 ug/dL (50-170); Total Iron Binding Capacity 289 ug/dL (250-450); Transferrin Sat 42 % (15-50)
[2020-03-22 10:12] LABS: Anion Gap 11.4 mmol/L (3-11); BUN 22 mg/dL (7-18); CO2 25.6 mmol/L (21.0-32.0); CREATININE 0.86 mg/dL (0.55-1.02); Calcium 9.3 mg/dL (8.5-10.1); Calculated LDL 79 mg/dL (<100); Chloride 103 mmol/L (98-107); Cholesterol 155 mg/dL (<200); Ferritin 86 ng/mL (8-252); Glucose 164 mg/dL (74-106); HDL Cholesterol 47 mg/dL (40-60); Magnesium 1.1 mg/dL (1.8-2.4); Potassium 4.5 mmol/L (3.5-5.1); Sodium 140 mmol/L (136-145); Triglyceride 145 mg/dL (<150)
== END 2020-03-22 02:05 ==
PROVIDERS: PCP Family Medicine; Visit Provider Family Medicine
DX: D50.9 Iron deficiency anemia, unspecified (principal); I10 Essential (primary) hypertension; I25.10 Atherosclerotic heart disease of native coronary artery without angina pectoris; E83.42 Hypomagnesemia
CPT/HCPCS: 36415; 80048; 80061; 82728; 83540; 83550; 83735

== ENCOUNTER 2020-06-14 02:18 | Outpatient (CLI) | payer OTHER, SELFPAY ==
[2020-06-14 09:40] LABS: HCT 37.8 % (36.0-46.0); HGB 12.5 g/dL (12.0-15.5); Mean Corp. HGB Concentration 33.1 g/dL (32.0-36.0); Mean Corpuscular Hemoglobin 29.4 pg (27.0-33.0); Mean Corpuscular Volume 88.9 fL (80-95); Mean Platelet Volume 11.5 fL (8.0-11.0); Platelet Count 225 x1000/uL (130-400); RBC 4.25 m/cumm (4.00-5.20); White Blood Cell Count 7.55 k/cumm (4.4-10.8)
[2020-06-14 09:58] LABS: Hemoglobin A1C 7.4 % (3.8-5.6)
[2020-06-14 10:20] LABS: Anion Gap 12.3 mmol/L (3-11); BUN 29 mg/dL (7-18); CO2 25.7 mmol/L (21.0-32.0); CREATININE 0.86 mg/dL (0.55-1.02); Calcium 9.4 mg/dL (8.5-10.1); Chloride 102 mmol/L (98-107); Glucose 214 mg/dL (74-106); Potassium 4.2 mmol/L (3.5-5.1); Sodium 140 mmol/L (136-145)
== END 2020-06-14 02:38 ==
PROVIDERS: Physician Assistant Surgical; PCP Family Medicine; Visit Provider Student in an Organized Health Care Education/Training Program
DX: E11.9 Type 2 diabetes mellitus without complications (principal); M17.12 Unilateral primary osteoarthritis, left knee
CPT/HCPCS: 36415; 80048; 85027; 83036

== ENCOUNTER 2020-06-14 07:39 | Outpatient (CLI) | payer OTHER, SELFPAY ==
[2020-06-15 23:53] LABS: COVID-19 RT-PCR Result NEGATIVE (Negative)
== END 2020-06-14 07:59 ==
PROVIDERS: PCP Family Medicine; Visit Provider Student in an Organized Health Care Education/Training Program
DX: M17.12 Unilateral primary osteoarthritis, left knee (principal); Z01.818 Encounter for other preprocedural examination
CPT/HCPCS: U0003

== ENCOUNTER 2020-06-18 06:09 | Observation (INO) | payer OTHER, SELFPAY ==
[2020-06-18] VITALS (12 sets, daily range): BP systolic 106–145; BP diastolic 42–81; PULSE 67–87; RESP 12–20; TEMP 35.3–36.6; O2SAT 93–100
[2020-06-18] MEDS: Acetaminophen 500 MG TAB 1000 MG PO ×2 (06:48→13:51)
[2020-06-18] MEDS: Celecoxib 200 MG CAP 400 MG PO (06:48)
[2020-06-18] MEDS: Gabapentin 300 MG CAP PO (06:48)
[2020-06-18] MEDS: Lactated Ringers 1,000 ML 80 ML IV ×2 (07:11→10:11)
--- NOTE | 2020-06-18 07:44 | W.PM.DS.N ---
Date of service: 06/18/20 Time of Service: 14:05 DS: Diagnosis Discharge Diagnosis (1) Primary osteoarthritis of left knee: Status: Chronic Discharge Plan Disposition Patient Disposition: HOME Condition: Good Discharge Details Reason For Visit: L KNEE DJD Admit Date/Time: 06/18/20 06:09 Admit Provider: Dharmesh Edmondson Attending Provider: Dharmesh Edmondson Primary Care Provider: [facility] Hospital Course: Patient was admitted to the medical/surgical floor following the procedure. The surgery was tolerated well without any notable medical, surgical, or anesthetic complications. Mobilization began postoperatively. She was voiding spontaneously. Vitals were stable. Physical therapy worked with the patient and was cleared for discharge home. No acute medical issues. Pain was controlled on oral regimen. Home Meds and New Rx's Prescriptions: New aspirin 81 mg tablet,delayed release (DR/EC) 81 mg PO BID Qty: 60 RF: 0 acetaminophen 500 mg tablet 1,000 mg PO Q8H PRN (Reason: pain) Qty: 90 RF: 3 pantoprazole 40 mg tablet,delayed release (DR/EC) 40 mg PO DAILY Qty: 30 RF: 0 docusate sodium [Colace] 100 mg capsule 100 mg PO BID PRNQty: 10 RF: 0 gabapentin 300 mg capsule 300 mg PO QHS Qty: 7 RF: 0 tramadol 50 mg tablet 50 mg PO Q4H MDD 300mg PRNQty: 12 RF: 0 ibuprofen 600 mg tablet 600 mg PO TID Qty: 60 RF: 0 Continued ascorbic acid (vitamin C) 500 mg tablet 500 mg PO DAILY RF: 0 chlorthalidone 50 mg tablet 50 mg PO DAILY Qty: 90 RF: 6 metoprolol tartrate 25 mg tablet 25 mg PO BID Qty: 180 RF: 4 ropinirole 0.5 mg tablet 0.5 mg PO HS Qty: 90 RF: 4 sertraline [Zoloft] 50 mg tablet 50 mg PO HS Qty: 90 RF: 4 amlodipine 10 mg tablet 10 mg PO DAILY Qty: 90 RF: 4 Slow-Mag 71.5 mg tablet,delayed release (DR/EC) 500 mg PO DAILY RF: 0 ferrous sulfate 325 mg (65 mg iron) tablet See Rx Instructions mg PO QID Qty: 270 RF: 3 nitroglycerin 0.4 mg tablet, sublingual 0.4 mg SL ONCE Qty: 20 RF: 0 atorvastatin [Lipitor] 80 mg tablet 80 mg PO DAILY Qty: 90 RF: 4 glipizide 10 mg tablet 10 mg PO BID Qty: 180 RF: 4 losartan [Cozaar] 100 mg tablet 100 mg PO QAM Qty: 90 RF: 4 metformin [Glucophage] 1,000 mg tablet 1,000 - 1,500 mg PO as directed Qty: 225 RF: 4 Probiotic Complex (with FOS) 10 billion cell-100 mg Capsule 200 mg PO DAILY RF: 0 Discontinued acetaminophen [Tylenol Extra Strength] 500 mg tablet 500 mg PO Q6H PRNRF: 0 aspirin [Aspir-81] 81 MG tablet,delayed release (DR/EC) 81 mg PO DAILY RF: 0 No Action (DME) blood sugar diagnostic [Blood Glucose Test] 1 EACH strip 1 ea Miscellaneous DAILY Qty: 100 RF: 2 Discharge Instructions Additional Instructions: Dr. Edmondson?s Total Knee Discharge Instructions Activity: The most important activity is to walk. You should try to take short walks a few times a day. It is important that when resting you work on keeping the knee straight. Avoid putting a pillow behind the knee as this will encourage flexion. Work on range of motion exercises as provided by Physical Therapy and the preoperative booklet. - Start outpatient physical therapy within 2 weeks. - You should wear the SHOSHANA hose on both legs for 2 weeks. Dressing: Keep the surgical dressing (Mepilex) in place for at least one week. If you went home on the surgical day, you should remove the MOLLY wrap on the second day and then apply the SHOSHANA hose. The dressing may get wet after 3 days but avoid soaking the dressing. If it gets wet, just lightly pat dry. Most patient prefer to cover with ClingWrap or Saran Wrap to keep the dressing dry. After the first week, the dressing may be removed and replaced with light gauze and tape or nothing. Medications: - You should take Tylenol and anti-inflammatory Ibuprofen as your primary pain control medications - You have been prescribed a stronger pain medication Tramadol for breakthrough pain, take as needed as prescribed. - You have also been prescribed a stomach acid reduction agent Pantoprozole to help reduce stomach acid and reflux. - You have Gabapentin to take at night for nerve pain and restlessness. - You will be taking Aspirin 81mg twice a day for DVT prevention unless instructed otherwise. - If you have constipation you should take Colace or Miralax (both [id number]). It takes most people 3-4 days to have a bowel movement. Follow-up: 2 weeks. You should also call physical therapy to work on scheduling outpatient therapy sessions which can begin at 2 weeks. If you have any acute concerns or questions, please do not hesitate to contact the office at [phone]. You may contact Dr. Edmondson with any questions after hours through the hospital at [phone] or on his cell phone at [phone]. Referrals: Dharmesh Edmondson MD [ [facility] STAFF PHYSICIAN] - Activity:: Activity as Tolerated Equipment/Supplies:: Walker Diet:: Carb Counting Discharge Orders Discharge Orders: Discharge Order (Routine); Ordered 06/18/20 Ordered By: Dharmesh Edmondson DS: Summary Status at Discharge Functional status at discharge: uses cane/walker Overall status at discharge: patient is progressing back to baseline Mental Status: mental status grossly normal Speech and Movement: speech and movement normal Mood: congruent mood Affect: normal affect Exam Psych Mental Status: mental status grossly normal Speech and Movement: speech and movement normal Mood: congruent mood Affect: normal affect DS: Data Vitals/I&O Vitals and I&O: Vital Signs Temperature 36.4 C L 06/18/20 06:32 Pulse 70 06/18/20 06:32 Pulse Rhythm Regular 06/18/20 06:32 Respiratory Rate 16 06/18/20 06:32 Respiratory Effort 06/18/20 06:32 Respiratory Depth Normal 06/18/20 06:32 Respiratory Pattern Normal 06/18/20 06:32 Blood Pressure 142/60 H 06/18/20 06:32 Pulse Oximetry 95 06/18/20 06:32 Oxygen Delivery Method Room Air 06/18/20 06:32 Oxygen Flow Rate 0 06/18/20 06:32 Intake & Output 06/17/20 06/17/20 06/18/20 11:59 23:59 11:59 Weight 78.2 kg [facility] Medical History Cataracts, both eyes (Acute 08/24/17) [facility]; MILD Depressive disorder (Acute) Diabetes mellitus (Acute 04/26/13) Ophtalmo. neg. 07/2016)/no nephro 2016 Essential hypertension (Acute 10/24/13) Hyperlipidemia (Acute 04/26/13) Increased body mass index (Acute) Moderate aortic regurgitation (Acute 04/09/15) echo. : stable x -2016:stable Normal vascular exam (Acute) no lower extremity arterial occlusive disease/ [facility] [place] lab. 08-25-2018 Primary osteoarthritis of left knee (Chronic 06/16/18) Injected: 12/14/2019 Sensorineural hearing loss, bilateral (Acute 03/18/17) Status post left heart catheterization (LHC) (Acute ~08/2018) 2 stents RCA. Surgical History Abdominal hysterectomy (~1997) History of carpal tunnel release of both wrists (Acute ~2015) Myocardial infarct (Chronic) Aug 2018. Stenting Family History Mother Diabetes Father Stroke Sister Neoplasm Sister No problems noted. 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
[2020-06-18] MEDS: ceFAZolin 2 GM/50 ML BAG IVPB (07:51)
[2020-06-18] MEDS: Bupivacaine 0.25% Pres-Free 30 ML VIAL (08:36)
[2020-06-18] MEDS: Ketorolac 30 MG/ML VIAL (08:37)
[2020-06-18] MEDS: Normal Saline 20 ML VIAL (08:38)
--- NOTE | 2020-06-18 10:55 | PT.INIE ---
Date of service: 06/18/20 Time of Service: 10:55 PT Notes Visit Reasons: L KNEE DJD Physical Therapy Inpatient Initial Evaluation Date: 06/18/2020 Referring Doctor: Dharmesh Edmondson MD PT Orders: PT CONSULT: Status post Ortho surgery. Status post left TKA. Precautions: Fall. Standard. WBAT on left LE. Patient Profile/Admitting Diagnosis: Yenny See is a 70-year-old female with primary unilateral osteoarthritis of the left knee and is status post left total knee plasty on post operative day 0. PMHX: Medical History Cataracts, both eyes (Acute 08/24/17) [facility]; MILD Depressive disorder (Acute) Diabetes mellitus (Acute 04/26/13) Ophtalmo. neg. 07/2016)/no nephro 2016 Essential hypertension (Acute 10/24/13) Hyperlipidemia (Acute 04/26/13) Increased body mass index (Acute) Moderate aortic regurgitation (Acute 04/09/15) echo. : stable x 03/2015/ -2016:stable Normal vascular exam (Acute) no lower extremity arterial occlusive disease/ [facility] [place] Vascular lab. 08-25-2018 Osteoarthritis of knee (Acute 09/24/14) Synvisc on going Primary osteoarthritis of left knee (Chronic 06/16/18) Injected: 12/14/2019 Sensorineural hearing loss, bilateral (Acute 03/18/17) Status post left heart catheterization (LHC) (Acute ~08/2018) 2 stents RCA. Surgical History Abdominal hysterectomy (~1997) History of carpal tunnel release of both wrists (Acute ~2015) Myocardial infarct (Chronic) Aug 2018. Stenting Social History/Home Situation: Yenny lives alone in a mobile home with her steps to enter and a rail on one side. Dependent with all aspects of ADLs without assist device nor adaptive equipment. Has worked in the [employer] section of [employer] over 8 years now. She has 2 daughters who live in [place] who can help with anything that she needs. Equipment Owned/DME: Front wheeled walker Subjective: Patient reported mild lightheadedness upon sitting up at edge of bed but that subsided after a while. Reported some stiffness on the left knee and pulling sensation on the back of the knee with straight leg raising activity. Denies headache and chest pain throughout. Reported 4/10 pain in the left knee at rest, diminished to 2/10 after ambulation activity. Objective: General Observation: Anti-thromboembolic pumps to bilateral legs. MOLLY wrap on left LE. Cryo/Cuff on left knee. IV in the right R UE. Mental Status: Alert and oriented x4 Pain: 4/10 at rest. 2/10 after ambulation activity. ROM: Right Upper Extremity: Shoulder Flexion WFL. Shoulder abduction WFL. Elbow flexion WFL. Wrist flexion WFL. Opening and closing of hand WFL. Left Upper Extremity: Shoulder Flexion WFL. Shoulder abduction WFL. Elbow flexion WFL. Wrist flexion WFL. Opening and closing of hand WFL. Right Lower Extremity: Hip flexion WFL. Hip abduction WFL. Knee flexion WFL. Ankle dorsiflexion WFL. Ankle plantarflexion WFL. Left Lower Extremity: Hip flexion WFL. Hip abduction WFL. Knee flexion 20 to 110 degrees. Knee extension -20 degrees. Ankle dorsiflexion WFL. Ankle plantarflexion WFL. Strength: Right Upper Extremity: Shoulder flexors 5/5. Shoulder abductors 5/5. Elbow flexors 5/5. Elbow extensors 5/5. Sample Card Maker strong. Left Upper Extremity: Shoulder flexors 5/5. Shoulder abductors 5/5. Elbow flexors 5/5. Elbow extensors 5/5. Sample Card Maker strong. Right Lower Extremity: Hip flexors 5/5. Hip abductors 5/5. Knee flexors 5/5. Knee extensors 5/5. Ankle dorsiflexors 5/5. Ankle plantarflexors 5/5. Left Lower Extremity:Hip flexors 5/5. Hip abductors 5/5. Knee flexors 3-/5. Knee extensors 3-/5. Ankle dorsiflexors 5/5. Ankle plantarflexors 5/5. Sensation: Intact as to pain and pressure on bilateral lower extremities. Bed Mobility/Transfers: Supine to sit supervision Sit to supine supervision Sit to stand contact-guard assist Stand to sit contact-guard assist Bed to chair contact-guard assist Chair to bed contact-guard assist Gait: 150 feet of level surface ambulation utilizing a front wheeled walker with step to gait pattern requiring contact-guard assist, IV pole management, and wheelchair follow by PT. Decreased javier. Patient reports usually difference with how much she is able to bend her knee postop as compared to before surgery. Balance: Static Sitting: Normal Dynamic Sitting: Normal Static Standing: Fair Dynamic Standing: Fair Special Tests: Mobility Limitations Standardized Measure [facility] AM-PAC 6 clicks Basic Mobility Inpatient Short Form: Raw Score: 1847% deficit CMS Score: Informed Consent/Education: Patient instructed in purpose of PT consult and plan of care. Assessment: Yenny See is a 70-year-old female who demonstrates decreased functional mobility requiring the use of a front wheeled walker for all mobility ADL performance, limitation in range of motion and strength and the left knee, difficulty with walking, and impairment with balance due to postoperative status. Yenny See is a 70-year-old female with primary unilateral osteoarthritis of the left knee and is status post left total knee plasty on post operative day 0. Patient presents with clinical signs and symptoms consistent with current/admitting diagnoses that have resulted to mobility limitations, gait instability, generalized weakness, and impairment of motor control as demonstrated by the following impairment level findings: 1. Decreased strength to L knee major muscle groups 2. Impaired standing balance 3. Impaired activity tolerance 4. Limitation of joint range of motion in L knee Impairments are contributing to the following functional limitations: 1. Inability to safely ambulate without assistive device and physical assistance 2. Increase completion time for mobility ADL performance 3. Increased fall risk 4. Inability to negotiate steps alone safely Patient is assessed as a 162 moderate complexity based on the following: History: 70-year-old female with impairment level findings, functional limitations, and past medical history as indicated above Examination: Demonstrable impairment in strength, balance, and mobility level with underlying impairments and functional limitations as documented above Presentation: Evolving Decision Makin moderate complexity Goals: After 1 more session today 1. Supine-Sit independent 2. Sit-Supine independent 3. Sit-Stand supervision 4. Stand-Sit supervision 5. Bed-Chair supervision 6. Chair-Bed supervision 7. SBA gait on level surface with use of least restrictive device for at least 300 feet without report of pain nor dyspnea 8. SBA stair negotiation while holding onto bilateral rails for at least 10 steps without report of pain nor dyspnea 9. Independent with home exercise program Plan of Care/Treatment Plan: Patient will be seen for 1 more session for education and training on stair negotiation as well as on early exercises that she can do for the first 2 weeks postop prior to orthopedic follow-up. DISCHARGE RECOMMENDATIONS: Outpatient PT services to regain premorbid independent level and facilitate return to full vocational activities TREATMENT CODE/TIME: 26171 x 30 minutes, 753 0 x 25 minutes beginning at 10:55 AM. Thank you for the opportunity to participate in the care of this patient. Deandra Sen PT, DPT, CLT [facility] [place], [place]
--- NOTE | 2020-06-18 12:45 | PT.INDS ---
Date of service: 06/18/20 Time of Service: 12:45 PT Notes Visit Reasons: L KNEE DJD Inpatient Physical Therapy Discharge Summary Dates: 06/18/2020 Dates of Service: 06/10/2020 only Referring Doctor: Dharmesh Edmondson MD PT Orders: PT CONSULT: Status post Ortho surgery. Status post left TKA. Precautions: Fall. Standard. WBAT on left LE. Patient Profile/Admitting Diagnosis: Yenny See is a 70-year-old female with primary unilateral osteoarthritis of the left knee and is status post left total knee plasty on post operative day 0. Subjective: No report of lightheadedness during ambulation and stair activities. She states that her daughter is picking her up and taking her home today. Objective: General Observation: Anti-thromboembolic pumps to bilateral legs. MOLLY wrap on left LE. Cryo/Cuff on left knee. IV in the right R UE. Mental Status: Alert and oriented x4 Pain: 4/10 at rest. 2/10 after ambulation activity. ROM: Right Upper Extremity: Shoulder Flexion WFL. Shoulder abduction WFL. Elbow flexion WFL. Wrist flexion WFL. Opening and closing of hand WFL. Left Upper Extremity: Shoulder Flexion WFL. Shoulder abduction WFL. Elbow flexion WFL. Wrist flexion WFL. Opening and closing of hand WFL. Right Lower Extremity: Hip flexion WFL. Hip abduction WFL. Knee flexion WFL. Ankle dorsiflexion WFL. Ankle plantarflexion WFL. Left Lower Extremity: Hip flexion WFL. Hip abduction WFL. Knee flexion 20 to 110 degrees. Knee extension -20 degrees. Ankle dorsiflexion WFL. Ankle plantarflexion WFL. Strength: Right Upper Extremity: Shoulder flexors 5/5. Shoulder abductors 5/5. Elbow flexors 5/5. Elbow extensors 5/5. Puppet Developer strong. Left Upper Extremity: Shoulder flexors 5/5. Shoulder abductors 5/5. Elbow flexors 5/5. Elbow extensors 5/5. Puppet Developer strong. Right Lower Extremity: Hip flexors 5/5. Hip abductors 5/5. Knee flexors 5/5. Knee extensors 5/5. Ankle dorsiflexors 5/5. Ankle plantarflexors 5/5. Left Lower Extremity:Hip flexors 5/5. Hip abductors 5/5. Knee flexors 3-/5. Knee extensors 3-/5. Ankle dorsiflexors 5/5. Ankle plantarflexors 5/5. Sensation: Intact as to pain and pressure on bilateral lower extremities. Bed Mobility/Transfers: Supine to sit supervision Sit to supine supervision Sit to stand SBA Stand to sit SBA Bed to chair SBA Chair to bed SBA Gait: 150 feet + 200 feet of level surface ambulation utilizing a front wheeled walker with step through gait pattern requiring stand by assist and IV pole management. Decreasing javier. Patient states that she needs to get used to bending her knee more with each leg. Balance: Static Sitting: Normal Dynamic Sitting: Normal Static Standing: Fair Dynamic Standing: Fair Assessment: Yenny See is a 70-year-old female who demonstrates decreased functional mobility requiring the use of a front wheeled walker for all mobility ADL performance, limitation in range of motion and strength and the left knee, difficulty with walking, and impairment with balance due to postoperative status. Yenny See is a 70-year-old female with primary unilateral osteoarthritis of the left knee and is status post left total knee arthroplasty on post operative day 0. Patient presents with clinical signs and symptoms consistent with current/admitting diagnoses that have resulted to mobility limitations, gait instability, generalized weakness, and impairment of motor control as demonstrated by the following impairment level findings: 1. Decreased strength to L knee major muscle groups 2. Impaired standing balance 3. Impaired activity tolerance 4. Limitation of joint range of motion in L knee Impairments are contributing to the following functional limitations: 1. Inability to safely ambulate without assistive device and physical assistance 2. Increase completion time for mobility ADL performance 3. Increased fall risk 4. Inability to negotiate steps alone safely Goals: After 1 more session today 1. Supine-Sit independent MET 2. Sit-Supine independent MET 3. Sit-Stand supervision NOT MET 4. Stand-Sit supervision NOT MET 5. Bed-Chair supervision NOT MET 6. Chair-Bed supervision NOT MET 7. SBA gait on level surface with use of least restrictive device for at least 300 feet without report of pain nor dyspnea NOT MET 8. SBA stair negotiation while holding onto bilateral rails for at least 10 steps without report of pain nor dyspnea NOT MET 9. Independent with home exercise program MET DISCHARGE RECOMMENDATIONS: Outpatient PT services to regain premorbid independent level and facilitate return to full vocational activities. TREATMENT CODE/TIME: 89330 x 43 minutes beginning at 12:45 AM. Thank you for the opportunity to participate in the care of this patient. Deandra Sen PT, DPT, CLT [facility] [place], [place]
[2020-06-18] MEDS: ceFAZolin 1 GM/50 ML BAG IVPB (12:54)
[2020-06-18] MEDS: Insulin Aspart 300 UNITS/3 ML PEN SC (12:57)
--- NOTE | 2020-06-18 14:21 | ROE_ITS ---
Date of service: 06/18/20 Time of Service: 09:22 Operative Note Operative Note DATE OF PROCEDURE: 06/18/20 PRE-OP DIAGNOSIS: Left Knee Osteoarthritis POST-OP DIAGNOSIS: same PROCEDURE: Left Total Knee Replacement SURGEON: Dharmesh Edmondson OCEAN EXPORT ACCOUNT MANAGER: Hafsa Ortiz ANESTHESIA: regional and spinal ESTIMATED BLOOD LOSS: 300 PATHOLOGY: none sent TOURNIQUET TIME: 25 COMPLICATIONS: None Patient was transported to: PACU Patient's condition: stable Implants: 1. Depuy Attune Cruciate Retaining Femoral Component, Size 3 2. Depuy Attune Rotating Platform Tibial Component, Size 3 3. Depuy Attune 3x12 CR,RP Poly 4. Depuy Attune Patellar Component, Size 35 Indications: I have seen Yenny in clinic for symptoms of knee arthritis, confirmed with radiographic findings. Yenny has exhausted nonoperative methods and was having significant limitations in daily function and desired better function and less pain. I discussed the technical details of a knee replacement. I explained the risks of the procedure to include, but not limited to, bleeding, infection, pain, stiffness, fracture, damage to nerves and vessels, damage to muscles and tendons, loosening, need for repeat procedure, blood clot and cardiopulmonary demise. Despite these risks, Yenny elected to proceed. Findings: There was significant signs of arthritis throughout the knee involving all 3 compartments with notable posteromedial tibial wear. Procedure Description: Yenny was greeted in the preoperative holding area where the correct side was identified and marked. The consent was reviewed with the patient and signed. The history and physical was updated. All questions were answered. Preoperative mediacations were administered: Acetaminophen 1000mg, Celebrex 400mg, and Gabapentin 300mg. An adductor canal block was then administered by the anesthesia team in the PACU. Yenny was taken back to the operating room. A spinal anesthestic was then administered. The patient was placed into the supine position on the operating room table. A nonsterile tourniquet was placed high onto the leg but only used for cementing. Posts were placed for positioning during the procedure. All bony prominences were well padded. Prophylactic antibiotics in the form of Cefazolin were administered. 1g of Tranxemic Acid was given intravenously within 30 minutes of incision. The left leg was then prepped with Chloraprep and draped in a standard fashion with impervious stockinette and extremity drape. A second prep with Chloraprep was performed prior to placing Ioband. A timeout to confirm correct identity, side and site, procedure, allergies, anesthesia, and medical concerns was performed. With the knee in some flexion, a midline incision was made overlying the knee. Full thickness skin flaps were raised once the extensor mechanism was encountered. These were raised medially and laterally. Any bleeding was controlled with electrocautery. Once the extensor mechanism was fully exposed, a medial parapatellar arthrotomy was performed in a flexed position. All bleeding from the arthrotomy and the geniculate arteries was coagulated. A medial subperiosteal peel was performed with electrocautery to the midcoronal plane. Due to the significant varus deformity the entire medial tibial plateau was exposed. The fat pad was removed while keeping the patellar tendon protected. The anterior distal femur synovium was removed for later visualization. The ACL and PCL were resected and the anterior horn of the lateral meniscus was transected. The knee was then flexed with the patella everted. Large osteophytes from the tibia were removed. Large osteophytes from the femur were removed. Using a step drill, and based on preoperative templating, the femoral canal was entered. This was done with a step drill without any difficulty. The intramedullary distal femoral cut guide was inserted, set to a 5 degree valgus cut and 9mm cut thickness. There was some hypoplasia of the lateral femoral condyle and any remnant cartilage of the medial femoral condyle was removed for appropriate thickness. The distal femoral cut guide was then held in position and pinned. With the soft tissues protected, the distal cut was performed. This was passed over a few times to ensure a planar cut. I then turned attention to the tibia. The extramedullary guide was placed onto the leg. The distal aspect was slid medial to adjust for position of center of ankle and stay in line with shaft of the tibia. Approximately 3-5 degrees of posterior slope was kept in the proximal cutting guide. The center of the guide was aligned with the PCL. The stylus was used to assess cut thickness. The medial side, most involved side, was set for a 2mm cut. This was then held in position and pinned into place with 2 additional pins and a cross pin for stability. The medial and lateral collateral ligaments were protected and the cut was performed. With this completed, it was assessed and noted to be of appropriate dimensions. The guide was removed. A spacer block was inserted and the knee was brought into extension. The 10mm spacer block provided full extension, without hyperextension and with stability of both the medial and lateral collateral ligaments was assessed. The pins from the femur and the tibia were then removed. The distal femur was then sized. The anterior stylus was placed onto the lateral ridge of the anterior femur. This indicated a size 3 femur. The external rotation of the guide was adjusted to 3 degrees to match the epicondylar axis, perpendicular to Murali?s line. The 4-in-1 cutting guide was the placed. The posterior medial femur cut was evaluated and appeared of good thickness. The spacer block was inserted underneath the cutting guide and stability was confirmed in 90 degrees of flexion. An sam wing was used to confirm appropriate position of the anterior cut to avoid notching. This cutting guide was ensured to be flush on the cut surface and then pinned into place with headed pins. While protecting the soft tissues, quad tendon, and collateral ligaments, the anterior and posterior cuts were performed with a saw. The central two pins were removed and the posterior and anterior chamfers were cut next. The notch-cutting guide was placed. This was pinned to lateralize the femoral component as much as possible while keeping it flush on the cut surface. This was then pinned into position. A reciprocating saw was used to make the small notch cut. A trial CR femoral component was then inserted, impacted down to the cut surfaces, and the lug holes were drilled. A provisional trial tibial component was placed and the knee was brought through range of motion. The polyethylene was trialed until there was good flexion and extension with excellent stability to the medial and lateral collaterals. The patella was tracking without thumbs. The tibial cut surface was fully exposed. The medial and lateral menisci were r emoved. The tibia was then sized as a 3. The tibia had been previously marked during trialing to correspond to the center of the tibial component to help with rotation. The trial was aligned to this joel, approximately rotated to the medial 1/3rd of the tibial tubercle. The trial was pinned into place. The tibia was prepared with a reamer and a keel punch. The knee was then brought into extension and the patella was measured as 22mm. Using the patellar clamp and cut guide, this was resected to a flat surface with at least 13mm of thickness remaining. The size 35 patella fit the best. This was oriented and then clamped into position. The lugs were drilled. The trial components were removed. The final components, except for the polyethylene were opened on the back table. The periosteal and capsular tissues, especially posteriorly, around the knee were then systematically injected with a periarticular cocktail consisting of 50cc 0.25% Marcaine, 30mg Ketorolac, 20cc of Exparal and 50cc of injectable saline. The tourniquet was then inflated to 275mmHg. The knee was thoroughly irrigated with a pulse lavage and dried. On the back table, with the implants opened, the cement was mixed. 2 batches of antibiotic laden cement were prepared with vacuum assistance. After the cement was ready it was placed on to the back side of the tibial component. A small amount was placed onto the posterior flange of the femur. Cement was manual pressurized and impregnated into the cut surface of the tibia. The tibial component was then inserted into the cut surface and impacted into position. Excess cement was removed and the component was reimpacted. Again, excess cement was removed and our attention was then turned to the femur. The femoral cut surface was once again dried and cement was manually impacted into the cut surface. The femoral component was lined with the lug holes and impacted. Excess cement was removed. It was ensured to be down against the cut surface. The trial polyethylene was then inserted and the leg was brought out into full extension for the duration of the cement curing process, approximately 15min. Cement was lastly manually impacted into the cut surface of the patella and the patellar button was clamped into position and held. During this process attention was turned to the gutters of the knee and for all interfaces for any excess cement. While the cement was hardening, the knee was irrigated with Irrisept chlorhexadine solution. It was allowed to sit in the knee for 3 minutes. After the cement had finally cured, approximately 15min, the clamp was removed from the patella and the knee was taken through range of motion. A size 12mm polyethylene component provided the best range of motion and stability with less than 2mm gapping with medial and lateral stress and full extension without significant hyperextension. The patella was tracking with a no-thumbs technique. The trial poly was removed and once again the knee was checked for any loose, excess, or errant cement. The poly component was then inserted into position after cleaning and drying the tibial tray. The capsule was then reapproximated with a No. 1 Vicryl at multiple locations. The capsule was finally closed with a No. 2 Stratafix, barbed suture. The tourniquet was then released and the arthrotomy appeared watertight without significant bleeding. The second dosing of 1g TXA was started. Deep tissues were then reapproximated with 0 Vicryl and 2-0 Vicryl. The skin was closed with a running 3-0 Monocryl in a subcuticular fashion. This was reinforced with skin glue. A Mepilex silver dressing was applied along with a [id number] MOLLY wrap. A CryoCuff was applied. Yenny was transferred to the hospital bed without difficulty an suffering no apparent complication. Yenny has a good prognosis. Physical therapy will start today and without restrictions, weight-bearing as tolerated. Aspirin 81mg BID will be used for DVT prophylaxis.
== END 2020-06-18 15:47 | disposition home or self-care (01) ==
LOC: PDS 10:49 → MS 10:50
PROVIDERS: Admitting Provider Student in an Organized Health Care Education/Training Program; PCP Family Medicine; Visit Provider Student in an Organized Health Care Education/Training Program
PROC: 0SRD0J9 Replacement of Left Knee Joint with Synthetic Substitute, Cemented, Open Approach (ICD-10-PCS; CPT 27447; principal; 2020-06-18 07:30)
DX: M17.12 Unilateral primary osteoarthritis, left knee (principal); M25.562 Pain in left knee; Z96.652 Presence of left artificial knee joint; G89.18 Other acute postprocedural pain; I10 Essential (primary) hypertension; I25.10 Atherosclerotic heart disease of native coronary artery without angina pectoris; I25.2 Old myocardial infarction; Z95.5 Presence of coronary angioplasty implant and graft; E11.9 Type 2 diabetes mellitus without complications; Z79.84 Long term (current) use of oral hypoglycemic drugs; I35.1 Nonrheumatic aortic (valve) insufficiency
CPT/HCPCS: 27447; C1776; 76942; 97162; 97530; NC; G0378; J0690; J1885; J2001; J2250; J2405; J2704; J3010

== ENCOUNTER 2020-07-08 15:37 | Outpatient (CLI) | payer OTHER, SELFPAY ==
--- NOTE | 2020-07-08 15:45 | DI.RAD_ITS ---
EXAM: XR STANDING ALIGNMENT CLINICAL HISTORY: 1ST POST OP. TECHNIQUE: 2D digital imaging was performed. COMPARISON: CR XR KNEE LT 3V AP,LAT,MADHURI from 12/14/2019 FINDINGS: . There is a left total knee prosthesis. The components appear well aligned. No periprosthetic andrew encies are seen. There are degenerative changes of the medial femoral tibial joint of the right knee causing mild varus angulation. There are mild degenerative changes of both ankles. Degenerative ch anges and scoliosis are noted in the lumbar spine. There are surgical clips in the pelvis. Hip join t spaces are well maintained. There is a minimal leg length discrepancy at the level of the femoral head, left greater than right. Vascular calcifications are seen. IMPRESSION: Degenerative changes of the right knee. Left knee prosthesis. Mild leg length discrepancy. DATA REPOSITORY: RADIATION DOSE DELIVERED:
== END 2020-07-08 15:57 ==
PROVIDERS: PCP Family Medicine; Referring Provider Family Medicine; Visit Provider Student in an Organized Health Care Education/Training Program
DX: M17.0 Bilateral primary osteoarthritis of knee (principal); Z96.652 Presence of left artificial knee joint; Z47.1 Aftercare following joint replacement surgery
CPT/HCPCS: 73560; 77073

== ENCOUNTER → 2020-08-05 13:53 | Outpatient (BNVA) | payer OTHER, SELFPAY | PROVIDERS: PCP Family Medicine; Visit Provider Student in an Organized Health Care Education/Training Program | DX: Z96.652 Presence of left artificial knee joint (principal); Z47.1 Aftercare following joint replacement surgery ==

== ENCOUNTER → 2020-09-09 09:23 | Outpatient (BNVA) | payer OTHER, SELFPAY | PROVIDERS: PCP Family Medicine; Referring Provider Family Medicine; Visit Provider Internal Medicine Cardiovascular Disease | DX: I35.1 Nonrheumatic aortic (valve) insufficiency (principal); I25.10 Atherosclerotic heart disease of native coronary artery without angina pectoris; I10 Essential (primary) hypertension; E78.5 Hyperlipidemia, unspecified; Z95.818 Presence of other cardiac implants and grafts; E11.9 Type 2 diabetes mellitus without complications | CPT/HCPCS: 99214 ==

== ENCOUNTER → 2020-09-16 09:33 | Outpatient (BNVA) | payer OTHER, SELFPAY | PROVIDERS: PCP Family Medicine; Referring Provider Family Medicine; Visit Provider Student in an Organized Health Care Education/Training Program | DX: Z96.652 Presence of left artificial knee joint (principal); Z47.1 Aftercare following joint replacement surgery; T84.82XD Fibrosis due to internal orthopedic prosthetic devices, implants and grafts, subsequent encounter ==

== ENCOUNTER 2020-09-20 02:05 | Outpatient (CLI) | payer OTHER, SELFPAY ==
[2020-09-23 10:15] LABS: SARS-CoV-2 RNA Not Detected (NotDetected); SARS-CoV-2 RNA Source Nasal/Nares
== END 2020-09-20 02:25 ==
PROVIDERS: PCP Family Medicine; Visit Provider Student in an Organized Health Care Education/Training Program
DX: Z11.59 Encounter for screening for other viral diseases (principal); Z01.818 Encounter for other preprocedural examination
CPT/HCPCS: U0003

== ENCOUNTER 2020-09-22 19:26 | Emergency (ER) | payer OTHER, SELFPAY ==
[2020-09-22] VITALS (40 sets, daily range): BP systolic 113–168; BP diastolic 47–75; PULSE 70–85; RESP 12–32; TEMP 36.5; O2SAT 95–98
--- NOTE | 2020-09-22 19:30 | RT.EKG_ITS ---
APPROVED REPORT Exam: Resting ECG Patient Location: E HR:83 bpm ECG Measurements Heart Rate 83 AXIS TN 161 P 5 QRSd 83 QRS 35 QT 389 T 51 QTc 456 Conclusion Sinus rhythm...normal P axis, V-rate 60- 99 q wave inferior, old
[2020-09-22 20:15] LABS: Abs Immature Grans 0.04 10^3/uL (0.0-0.06); Absolute Basophil Count 0.03 10^3/uL (0.0-0.2); Absolute Eosinophil Count 0.16 10^3/uL (0.0-0.7); Absolute Monocyte Count 0.66 10^3/uL (0.1-0.8); Absolute Neutrophil Count 5.19 10^3/uL (1.2-6.7); Basophils % 0.3; Eosinophils % 1.8; HCT 37.5 % (36.0-46.0); HGB 12.5 g/dL (11.2-15.7); Immature Grans % 0.4; Lymphocytes % 32.3; MCH 28.9 pg (27.0-33.0); MCHC 33.3 % (32.0-36.0); MCV 86.8 fL (80-95); MPV 11.9 fL (8.0-11.0); Monocytes % 7.3; Neutrophils % 57.9; Nucleated RBC 0 %; Platelet Count 226 10^3/uL (130-400); RBC 4.32 10^6/uL (3.93-5.22); RDW 13.1 % (11.7-14.6); WBC 8.98 10^3/uL (4.4-10.8)
[2020-09-22 20:30] LABS: PTT Activated 22.8 sec (21.0-27.8); Prothrombin Time 10.1 sec (9.3-11.0)
[2020-09-22 20:37] LABS: ALT 33 U/L (14-59); AST 18 U/L (15-37); Alkaline Phosphatase 105 U/L (46-116); Anion Gap 9.6 mmol/L (3-11); BUN 24 mg/dL (7-18); Bilirubin, Total 0.3 mg/dL (0.2-1.0); CO2 27.4 mmol/L (21.0-32.0); CREATININE 1.05 mg/dL (0.55-1.02); Chloride 101 mmol/L (98-107); Estimated GFR 51.66 (mL/min/1.73m2); Glucose 208 mg/dL (74-106); Magnesium 1.2 mg/dL (1.8-2.4); Potassium 3.7 mmol/L (3.5-5.1); Sodium 138 mmol/L (136-145); TSH 3.03 uIU/mL (0.36-3.74); Total Protein 7.4 g/dL (6.4-8.2); Troponin I < 0.05 ng/mL (<0.06)
--- NOTE | 2020-09-22 20:44 | DI.RAD_ITS ---
EXAM: XR CHEST 2V PA LATERAL CLINICAL HISTORY: Palpitations TECHNIQUE: 2D digital imaging was performed. COMPARISON: CR,XR XR CHEST 2V PA LATERAL from 09/19/2019 FINDINGS: MEDIASTINUM: Normal. HEART: Normal. PULMONARY VASCULATURE: Normal. LUNGS: No focal consolidating infiltrates. PLEURAL SPACE: No pleural effusion or pneumothorax. BONE:Within normal limits for the patient's age. OTHER FINDINGS:Normal. IMPRESSION: No acute pulmonary findings. DATA REPOSITORY: RADIATION DOSE DELIVERED:
[2020-09-22 20:45] LABS: D-Dimer 664 ng/mlFEU (<500)
[2020-09-22] MEDS: Normal Saline 1,000 ML 1000 ML IV (20:59)
[2020-09-22] MEDS: Aspirin 325 MG TAB PO (21:00)
[2020-09-22] MEDS: MAGNESIUM SULFATE 2 GM/50 ML BAG IVPB (21:02)
--- NOTE | 2020-09-22 21:16 | DI.VRAD_ITS ---
PROCEDURE INFORMATION: Exam: XR Chest, 2 Views Exam date and time: 09/22/2020 8:08 PM Age: 70 years old Clinical indication: Other: Palpitations TECHNIQUE: Imaging protocol: XR of the chest Views: 2 views. COMPARISON: CR XR CHEST 2V PA LATERAL 09/19/2019 5:14 PM FINDINGS: Lungs: No focal consolidation. Pleural space: Stable chronic blunting of the right costophrenic angle. No pneumothorax. Heart/Mediastinum: The heart and mediastinum are stable in appearance. Bones/joints: Mild degenerative changes are seen. IMPRESSION: 1. No acute cardiopulmonary disease. 2. No significant change from the prior exam. Dictated and Authenticated by: Jose F Leavitt MD. Ordering:TOMMIE Morelos MD
--- NOTE | 2020-09-22 21:25 | W.ED.GENAD ---
Discharge Plan Disposition Patient Disposition: HOME Condition: Stable Discharge Details Clinical Impression: Palpitations Primary Care Provider: Rosi Bower ED Provider: Jethro Kee Home Meds and New Rx's Prescriptions: Continued ascorbic acid (vitamin C) 500 mg tablet 500 mg PO DAILY RF: 0 metoprolol tartrate 25 mg tablet 25 mg PO BID Qty: 180 RF: 4 ropinirole 0.5 mg tablet 0.5 mg PO HS Qty: 90 RF: 4 sertraline [Zoloft] 50 mg tablet 50 mg PO HS Qty: 90 RF: 4 amlodipine 10 mg tablet 10 mg PO DAILY Qty: 90 RF: 4 aspirin 81 mg tablet,delayed release (DR/EC) 81 mg PO DAILY RF: 0 cyclobenzaprine 5 mg tablet 5 mg PO HS PRN (Reason: muscle spasm) Qty: 14 RF: 0 ibuprofen 600 mg tablet 600 mg PO TID Qty: 60 RF: 0 (DME) Blood Glucose Test 1 EACH strip 1 ea Miscellaneous DAILY Qty: 100 RF: 2 nitroglycerin 0.4 mg tablet, sublingual 0.4 mg SL ONCE Qty: 20 RF: 0 atorvastatin [Lipitor] 80 mg tablet 80 mg PO DAILY Qty: 90 RF: 4 glipizide 10 mg tablet 10 mg PO BID Qty: 180 RF: 4 metformin [Glucophage] 1,000 mg tablet 1,000 - 1,500 mg PO as directed Qty: 225 RF: 4 ferrous sulfate 325 mg (65 mg iron) tablet See Rx Instructions mg PO QID Qty: 270 RF: 3 chlorthalidone 50 mg tablet 50 mg PO DAILY Qty: 90 RF: 6 Probiotic Complex (with FOS) 10 billion cell-100 mg Capsule 200 mg PO DAILY RF: 0 acetaminophen 500 mg tablet 1,000 mg PO Q8H PRN (Reason: pain) Qty: 90 RF: 3 ibuprofen 200 mg Capsule 400 mg PO PRN PRNRF: 0 Discharge Instructions Instructions: Heart Palpitations (ED) Additional Instructions: Work-up here in the ER was unremarkable for any obvious emergent process. As we discussed, respiratory therapy should be in contact with you tomorrow to set up your Holter monitor. Please watch for new or worsening symptoms and return to the ER for any concerns. I recommend that you reach out to your primary care provider and your senior account executive tomorrow for prompt outpatient reevaluation with Medical Decision Making 70-year-old female past medical history of CAD, hypertension, diabetes, TX, 2 cardiac stents, presents with what she describes as heart fluttering or palpitations and feeling lightheaded during the palpitations. She had 2 separate episodes, first around 6 PM, the next around 645-7 PM. Both results within a couple of minutes. She is currently asymptomatic. Clinically she appears well, nontoxic, blood pressure upon presentation is 168/62. Pulse 85. Will initiate a cardiac work-up, give aspirin, obtain D-dimer and TSH. Differential includes but not excluded to arrhythmia, A. fib, atypical ACS, PVC, thyroid disease, anemia, electrolyte abnormality, PE, etc. Repeat blood pressure 113/60 Initial laboratory values are unremarkable for emergent process, D-dimer is 664 however with age adjustment, this is within normal range. Creatinine 1.05 which estimated GFR 51.99. Patient given 1 L IV fluid. Magnesium is 1.2, she is receiving 2 g IV. TSH 3.03. Chest x-ray unremarkable per virtual radiology. Upon reevaluation patient remains asymptomatic. She is willing to await a 3-hour repeat troponin. If negative plan is to discharge home and I will set her up with a Holter monitor. Repeat EKG performed at 2301, please see official report by Dr. Berger. Sinus rhythm, ventricular of 72. Q waves present, no significant change from previous EKG. No STEMI. Repeat troponin remains less than 0.05. Discussed findings with patient. She remains asymptomatic. Patient comfortable with discharge home. Respiratory therapy will contact her tomorrow to set up Holter monitor. She was encouraged to return to the ER for new or worsening symptoms otherwise contact her primary care and cardiology team tomorrow for prompt outpatient reevaluation. Medical Records Medical records reviewed: Yes I reviewed the patient's medical records. Imaging Data Radiologic Study: Attestation: I personally reviewed and interpreted this imaging study as follows: Imaging: X-Ray Lab Data Lab results reviewed: Yes I reviewed the patient's lab results. Lab results narrative: Laboratory Tests Range/Units 09/22/20 09/22/20 09/22/20 19:45 19:45 19:45 WBC (4.4-10.8) 10^3/uL 8.98 RBC (3.93-5.22) 10^6/uL 4.32 Hgb (11.2-15.7) g/dL 12.5 Hct (36.0-46.0) % 37.5 MCV (80-95) fL 86.8 MCH (27.0-33.0) pg 28.9 MCHC (32.0-36.0) % 33.3 RDW (11.7-14.6) % 13.1 Plt Count (130-400) 10^3/uL 226 MPV (8.0-11.0) fL 11.9 H Immature Gran % 0.4 Neutrophils % 57.9 Lymphocytes % 32.3 Monocytes % 7.3 Eosinophils % 1.8 Basophils % 0.3 Nucleated RBC % % 0 Absolute Neutrophils (1.2-6.7) 10^3/uL 5.19 Absolute Lymphocytes (1.2-3.4) 10^3/uL 2.90 Absolute Monocytes (0.1-0.8) 10^3/uL 0.66 Absolute Eosinophils (0.0-0.7) 10^3/uL 0.16 Absolute Basophils (0.0-0.2) 10^3/uL 0.03 PT (9.3-11.0) sec 10.1 INR (0.9-1.1) 1.0 APTT (21.0-27.8) sec 22.8 D-Dimer (<500) ng/mlFEU 664 H Sodium (136-145) mmol/L 138 Potassium (3.5-5.1) mmol/L 3.7 Chloride (98-107) mmol/L 101 Carbon Dioxide (21.0-32.0) mmol/L 27.4 Anion Gap (3-11) mmol/L 9.6 BUN (7-18) mg/dL 24 H Creatinine (0.55-1.02) mg/dL 1.05 H Estimated GFR/1.73 m2 (mL/min/1.73m2) 51.66 Glucose (74-106) mg/dL 208 H Calcium (8.5-10.1) mg/dL 9.0 Magnesium (1.8-2.4) mg/dL 1.2 L Total Bilirubin (0.2-1.0) mg/dL 0.3 AST (15-37) U/L 18 ALT (14-59) U/L 33 Alkaline Phosphatase (46-116) U/L 105 Troponin I (<0.06) ng/mL < 0.05 Total Protein (6.4-8.2) g/dL 7.4 Albumin (3.4-5.0) g/dL 4.0 TSH (0.36-3.74) uIU/mL 3.03 ECG Data Attestation: I personally reviewed and interpreted this ECG (s) as follows: Interpretation: Please see official report by Dr. Hays. Sinus rhythm, ventricular rate of 83. Q waves present, nonacute compared to previous EKG. No STEMI HPI General Mode of arrival: ambulatory. Date/Time Provider Initiated Documentation: 09/22/20 19:38. Limitations to Documentation: no limitations. Information obtained by: patient. HPI Narrative: This is a 70-year-old female with past medical history that includes diabetes, hypertension, hyperlipidemia, aortic regurgitation, CAD, TX, 2 stents in 2018, presenting to the ER for palpitations. She reports that at 6 PM today she was watching TV, felt fluttering palpitations, they lasted for no more than a minute or 2, so she was feeling lightheaded. Then roughly 45 minutes later she had a similar presentation, this time she decided to take a nitro because she states that when she had her TX she did not have any chest pain. She is currently asymptomatic. She does take aspirin but is not otherwise anticoagulated. She denies recent illness or trauma. She denies headache, neck pain, chest pain, shortness of breath, abdominal pain, nausea, vomiting, back pain, numbness, tingling, weakness, change in bowel or bladder function. Related Data Home Medications Medication Instructions Recorded Confirmed Blood Glucose Test #100 strip 02/12/17 09/22/20 ascorbic acid (vitamin C) 500 mg 500 mg PO DAILY 09/12/19 09/22/20 tablet metoprolol tartrate 25 mg tablet 25 mg PO BID #180 tab 12/07/19 09/22/20 ropinirole 0.5 mg tablet 0.5 mg PO HS #90 tab 12/07/19 09/22/20 sertraline 50 mg tablet 50 mg PO HS #90 tab-cap 12/07/19 09/22/20 nitroglycerin 0.4 mg sublingual 0.4 mg SL ONCE #20 tab 01/08/20 09/22/20 tablet atorvastatin 80 mg tablet 80 mg PO DAILY #90 tab 02/02/20 09/22/20 glipizide 10 mg tablet 10 mg PO BID #180 tab-cap 02/02/20 09/22/20 amlodipine 10 mg tablet 10 mg PO DAILY #90 tab 04/11/20 09/22/20 metformin 1,000 mg tablet 1,000 - 1,500 mg PO as directed 05/20/20 09/22/20 #225 tab Probiotic Complex (with FOS) 200 mg PO DAILY 06/14/20 09/22/20 acetaminophen 1,000 mg PO Q8H PRN #90 tab 06/18/20 09/22/20 ferrous sulfate 325 mg (65 mg See Rx Instructions PO QID #270 tab 07/01/20 09/22/20 iron) tablet cyclobenzaprine 5 mg tablet 5 mg PO HS PRN #14 tab 07/08/20 09/22/20 ibuprofen 600 mg tablet 600 mg PO TID #60 tab 07/08/20 09/22/20 chlorthalidone 50 mg tablet 50 mg PO DAILY #90 tab 08/22/20 09/22/20 aspirin 81 mg tablet,delayed 81 mg PO DAILY tab 09/09/20 09/22/20 release ibuprofen 400 mg PO PRN PRN 09/22/20 09/22/20 Previous Rx's Medication Instructions Recorded metoprolol tartrate 25 mg tablet 25 mg PO BID #180 tab 12/07/19 ropinirole 0.5 mg tablet 0.5 mg PO HS #90 tab 12/07/19 sertraline 50 mg tablet 50 mg PO HS #90 tab-cap 12/07/19 nitroglycerin 0.4 mg sublingual 0.4 mg SL ONCE #20 tab 01/08/20 tablet atorvastatin 80 mg tablet 80 mg PO DAILY #90 tab 02/02/20 glipizide 10 mg tablet 10 mg PO BID #180 tab-cap 02/02/20 amlodipine 10 mg tablet 10 mg PO DAILY #90 tab 04/11/20 metformin 1,000 mg tablet 1,000 - 1,500 mg PO as directed 05/20/20 #225 tab acetaminophen 1,000 mg PO Q8H PRN #90 tab 06/18/20 ferrous sulfate 325 mg (65 mg See Rx Instructions PO QID #270 tab 07/01/20 iron) tablet cyclobenzaprine 5 mg tablet 5 mg PO HS PRN #14 tab 07/08/20 ibuprofen 600 mg tablet 600 mg PO TID #60 tab 07/08/20 chlorthalidone 50 mg tablet 50 mg PO DAILY #90 tab 08/22/20 Allergies Allergy/AdvReac Type Severity Reaction Status Date / Time hydrochlorothiazide AdvReac Mild GI upset Verified 09/22/20 19:40 lisinopril AdvReac Mild cough Verified 09/22/20 19:40 naproxen AdvReac Mild Itching Verified 09/22/20 19:40 oxycodone HCl [From Percocet] AdvReac Mild n and v Verified 09/22/20 19:40 tetracycline AdvReac Mild G[set Verified 09/22/20 19:40 General Stated Complaint: Dizzy/Sync SHARRON: 2 Review of Systems Constitutional Constitutional: Denies fatigue, Denies fever(s) and Denies headache(s) Eyes Eyes: Denies change in vision ENT Ears, Nose, Mouth, and Throat: Denies dizziness, Denies headache(s) and Denies neck pain Cardiovascular Cardiovascular: Denies chest pain, Reports lightheadedness, Reports palpitations and Denies dyspnea Respiratory Respiratory: Denies cough and Denies dyspnea Gastrointestinal Gastrointestinal: Denies abdominal pain, Denies nausea and Denies vomiting Musculoskeletal Musculoskeletal: Denies back pain and Denies neck pain Integumentary/Breasts Skin/Breast: Denies rash Neurologic Neurologic: Denies dizziness and Denies headache(s) Endocrine Endocrine: Denies fatigue and Reports palpitations [facility] Medical History Cataracts, both eyes (08/24/17) [facility] Depressive disorder Diabetes mellitus (04/26/13) Ophtalmo. neg. 07/2016)/no nephro 2016 Essential hypertension (10/24/13) Hyperlipidemia (04/26/13) Increased body mass index Moderate aortic regurgitation (04/09/15) echo. : stable x -2016:stable Normal vascular exam no lower extremity arterial occlusive disease/ [facility] Vascular lab. 08-25-2018 Primary osteoarthritis of left knee (06/16/18) Injected: 12/14/2019 Sensorineural hearing loss, bilateral (03/18/17) Status post left heart catheterization (LHC) (~08/2018) 2 stents RCA. Surgical History Abdominal hysterectomy (~1997) History of carpal tunnel release of both wrists (~2015) Myocardial infarct Aug 2018. 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 Pets and animals: No Sexually active: No Do you think of yourself as: straight/heterosexual Current gender identity: female What is your relationship status?: How often do you get together with friends or relatives?: three or more times per week How often do you attend anabaptism or baptism services?: decline to answer Do you belong to any clubs or organized social groups?: no Panel score (0-1 are the most socially isolated patients): 1 What type of physical activity do you participate in: none [place]/Sikhism: Restorationism Special [place] needs: No Seatbelt use: always Drive intox or ride w/intox school bus driver/teacher assistant: No Do you feel safe at home: Yes Additional Social history: Lives alone Exam Const General: cooperative, healthy appearing, comfortable and no acute distress Orientation: alert, awake and oriented x3 HENMT Head: normal to inspection, normocephalic and atraumatic Mouth: moist mucous membranes Eyes General: appearance normal, both eyes and all related structures Alignment and Position: alignment normal Periorbital: periorbital findings normal Eyelids: eyelids normal Conjunctivae: conjunctivae normal Sclera: sclerae normal Cornea: corneas normal Pupils: PERRL EOM: EOM intact bilaterally Direct ophthalmoscopy: normal light reflex Neck Neck: normal visual inspection, full ROM, no meningeal signs, trachea midline, supple and nontender Resp Effort & Inspection: normal respiratory effort and able to speak in complete sentences Auscultation: clear to auscultation bilaterally Cardio Rate: regular rate Rhythm: regular rhythm GI Palpation: soft and nontender Back/Spine/Pelvis Back: No back tenderness Skin General skin exam: no rashes or lesions noted Neuro General: patient alert, patient awake, moves all extremities and no focal motor deficits Cranial Nerves: CN's II-XI intact bilaterally Cognition: normal cognition Speech: speech normal Gait: normal gait Motor: muscle tone normal throughout Sensory Exam: no sensory deficits noted Extrem General: normal to inspection, full ROM, capillary refill normal, no pedal edema and no calf tenderness Psych Appearance: grossly normal Mental Status: mental status grossly normal Course Vital Signs Vital signs: Vital Signs Temperature 36.5 C 09/22/20 19:36 Pulse 85 09/22/20 19:36 Respiratory Rate 16 09/22/20 19:36 Blood Pressure 168/62 H 09/22/20 19:36 Pulse Oximetry 98 09/22/20 19:36 Temperature 36.5 C 09/22/20 19:36 Temperature Source Temporal Artery Scan 09/22/20 19:36 Pulse 72 09/22/20 21:03 Pulse 71 09/22/20 21:03 Respiratory Rate 16 09/22/20 21:03 Respiratory Effort Non-Labored 09/22/20 19:51 Respiratory Depth Normal 09/22/20 19:51 Respiratory Pattern Normal 09/22/20 19:51 Blood Pressure 113/60 09/22/20 21:03 Blood Pressure Mean 73 09/22/20 21:03 Pulse Oximetry 97 09/22/20 21:03 Oxygen Delivery Method Room Air 09/22/20 19:36 Oxygen Flow Rate 0 09/22/20 19:36 Pain Level 0 09/22/20 19:36 Lab/Test Results Lab/Test Results: Laboratory Tests Range/Units 09/22/20 09/22/20 09/22/20 19:45 19:45 19:45 WBC (4.4-10.8) 10^3/uL 8.98 RBC (3.93-5.22) 10^6/uL 4.32 Hgb (11.2-15.7) g/dL 12.5 Hct (36.0-46.0) % 37.5 MCV (80-95) fL 86.8 MCH (27.0-33.0) pg 28.9 MCHC (32.0-36.0) % 33.3 RDW (11.7-14.6) % 13.1 Plt Count (130-400) 10^3/uL 226 MPV (8.0-11.0) fL 11.9 H Immature Gran % 0.4 Neutrophils % 57.9 Lymphocytes % 32.3 Monocytes % 7.3 Eosinophils % 1.8 Basophils % 0.3 Nucleated RBC % % 0 Absolute Neutrophils (1.2-6.7) 10^3/uL 5.19 Absolute Lymphocytes (1.2-3.4) 10^3/uL 2.90 Absolute Monocytes (0.1-0.8) 10^3/uL 0.66 Absolute Eosinophils (0.0-0.7) 10^3/uL 0.16 Absolute Basophils (0.0-0.2) 10^3/uL 0.03 PT (9.3-11.0) sec 10.1 INR (0.9-1.1) 1.0 APTT (21.0-27.8) sec 22.8 D-Dimer (<500) ng/mlFEU 664 H Sodium (136-145) mmol/L 138 Potassium (3.5-5.1) mmol/L 3.7 Chloride (98-107) mmol/L 101 Carbon Dioxide (21.0-32.0) mmol/L 27.4 Anion Gap (3-11) mmol/L 9.6 BUN (7-18) mg/dL 24 H Creatinine (0.55-1.02) mg/dL 1.05 H Estimated GFR/1.73 m2 (mL/min/1.73m2) 51.66 Glucose (74-106) mg/dL 208 H Calcium (8.5-10.1) mg/dL 9.0 Magnesium (1.8-2.4) mg/dL 1.2 L Total Bilirubin (0.2-1.0) mg/dL 0.3 AST (15-37) U/L 18 ALT (14-59) U/L 33 Alkaline Phosphatase (46-116) U/L 105 Troponin I (<0.06) ng/mL < 0.05 Total Protein (6.4-8.2) g/dL 7.4 Albumin (3.4-5.0) g/dL 4.0 TSH (0.36-3.74) uIU/mL 3.03
--- NOTE | 2020-09-22 22:45 | RT.EKG_ITS ---
APPROVED REPORT Exam: Resting ECG Patient Location: E HR:72 bpm ECG Measurements Heart Rate 72 AXIS WA 196 P 12 QRSd 84 QRS 23 QT 424 T 39 QTc 465 Conclusion Sinus rhythm...normal P axis, V-rate 60- 99 Inferior infarct, old...Q >35mS, II III aVF No STEMI
[2020-09-22 23:03] LABS: Troponin I < 0.05 ng/mL (<0.06)
== END 2020-09-22 23:40 | disposition home or self-care (01) ==
PROVIDERS: Emergency Provider Physician Assistant; PCP Family Medicine
DX: R00.2 Palpitations (principal); I25.2 Old myocardial infarction; I10 Essential (primary) hypertension; E11.9 Type 2 diabetes mellitus without complications; Z79.84 Long term (current) use of oral hypoglycemic drugs
CPT/HCPCS: 80053; 93005; 96361; 96365; 96366; 99284; 71046; 83735; 84443; 84484; 85025; 85379; 85610; 85730; 93010

== ENCOUNTER 2020-09-24 07:55 | Day surgery (SDC) | payer OTHER, SELFPAY ==
--- NOTE | 2020-09-24 07:37 | W.PM.DSUDISC ---
Discharge Plan Disposition Patient Disposition: HOME Condition: Good Discharge Details Reason For Visit: Left Knee Arthrofibrosis Attending Provider: Dharmesh Edmondson Primary Care Provider: Rosi Bower Home Meds and New Rx's Prescriptions: New tramadol 50 mg tablet 50 mg PO Q8H PRNQty: 6 RF: 0 Continued ascorbic acid (vitamin C) 500 mg tablet 500 mg PO DAILY RF: 0 metoprolol tartrate 25 mg tablet 25 mg PO BID Qty: 180 RF: 4 ropinirole 0.5 mg tablet 0.5 mg PO HS Qty: 90 RF: 4 sertraline [Zoloft] 50 mg tablet 50 mg PO HS Qty: 90 RF: 4 amlodipine 10 mg tablet 10 mg PO DAILY Qty: 90 RF: 4 aspirin 81 mg tablet,delayed release (DR/EC) 81 mg PO DAILY RF: 0 cyclobenzaprine 5 mg tablet 5 mg PO HS PRN (Reason: muscle spasm) Qty: 14 RF: 0 (DME) Blood Glucose Test 1 EACH strip 1 ea Miscellaneous DAILY Qty: 100 RF: 2 nitroglycerin 0.4 mg tablet, sublingual 0.4 mg SL ONCE Qty: 20 RF: 0 atorvastatin [Lipitor] 80 mg tablet 80 mg PO DAILY Qty: 90 RF: 4 glipizide 10 mg tablet 10 mg PO BID Qty: 180 RF: 4 metformin [Glucophage] 1,000 mg tablet 1,000 - 1,500 mg PO as directed Qty: 225 RF: 4 chlorthalidone 50 mg tablet 50 mg PO DAILY Qty: 90 RF: 6 Probiotic Complex (with FOS) 10 billion cell-100 mg Capsule 200 mg PO DAILY RF: 0 ibuprofen 600 mg tablet 600 mg PO TID Qty: 60 RF: 3 acetaminophen 500 mg tablet 1,000 mg PO Q8H PRN (Reason: pain) Qty: 90 RF: 3 Discontinued ibuprofen 200 mg Capsule 400 mg PO PRN PRNRF: 0 No Action ferrous sulfate 325 mg (65 mg iron) tablet 650 mg PO BID RF: 0 Discharge Instructions Additional Instructions: Activity: You should begin moving as soon as possible. You may work on flexion but also equally maintain extension. You may bear weight as tolerated, using crutches only for support/comfort. You should apply ice to help with swelling and elevate when possible (especially in the first few days). You should apply ice to assist with swelling and pain. Medications: - Rarely does this require any stronger pain medications, but it may for the first few days or with PT. Tramdol has been called in. - Recommend to take up to 1000mg of Acetaminophen (Tylenol) every 8 hours and 600mg of Ibuprofen (Advil) every 8 hours as needed. Follow-up: 7-10 days Referrals: Dharmesh Edmondson MD [ [facility] STAFF PHYSICIAN] - Equipment/Supplies: Partial Weight Bearing Crutches Activity:: Activity as Tolerated Diet:: As Tolerated Discharge Orders Discharge Orders: Discharge Order (Routine); Ordered 09/24/20 Ordered By: Dharmesh Edmondson DS: Diagnosis Discharge Diagnosis (1) Arthrofibrosis of total knee arthroplasty: Status: Acute
[2020-09-24 08:21] VITALS: BP 145/65; PULSE 75; RESP 16; TEMP 36.5; O2SAT 98
[2020-09-24] MEDS: Lactated Ringers 1,000 ML 80 ML IV (08:44)
[2020-09-24 09:39] VITALS: BP 132/64; PULSE 73; RESP 16; TEMP 36.4; O2SAT 99
[2020-09-24 09:44] VITALS: BP 145/52; PULSE 73; RESP 21; TEMP 36.4; O2SAT 99
[2020-09-24 09:49] VITALS: BP 164/56; PULSE 72; RESP 16; TEMP 36.4; O2SAT 99
[2020-09-24 10:34] VITALS: BP 155/68; PULSE 63; RESP 16; TEMP 36.5; O2SAT 97
--- NOTE | 2020-09-24 19:36 | ROE_ITS ---
Date of service: 09/24/20 Time of Service: 09:45 Operative Note Operative Note DATE OF PROCEDURE: 12/05/19 PRE-OP DIAGNOSIS: Left Knee Arthrofibrosis s/p Replacement POST-OP DIAGNOSIS: same PROCEDURE: Left Knee Manipulation Under Anesthesia SURGEON: Dharmesh Edmondson ANESTHESIA: VIJAY ESTIMATED BLOOD LOSS: 0 PATHOLOGY: none sent TOURNIQUET TIME: 0 COMPLICATIONS: None Patient was transported to: PACU Patient's condition: stable Indications: Bahman is a 70yo female who is s/p knee replacement. Despite diligent work with physical therapy there has been continued stiffness. To assist with mobility, I offered a manipulation under anesthesia. I discussed the risks of the procedure to include bleeding, pain, recurrent stiffness, fracture. Despite these risks, she elects to proceed. Findings: Preoperative flexion = 100 Postoperative flexion = 130 Preoperative extension = 0 Postoperative extension = 0 Procedure Description: The patient is agreed in the preoperative holding area. Identity was confirmed and the correct side was identified and marked. The consent was reviewed the patient and signed. History and physical was updated. Bahman was taken back to the operating room. The left side was identified as the correct side. A timeout was performed for safe surgery. A general anesthetic was administered. The knee was then prepped with ChloraPrep and an intra-articular injection of 8 cc of 0.5% bupivacaine was administered. Once a muscle relaxant was fully on board manipulation was performed. Pre- manipulation range of motion was noted. A gentle manipulation was performed first into flexion using a very small lever arm and adding gentle and progressive pressure to the tibia. There is audible and palpable crepitus with improvement in range of motion. This was cycled and repeated multiple times. The leg was then brought into extension and gentle anterior posterior pressure was applied with a supported hand behind the proximal tibia and knee. This was brought back into flexion was once again manipulated with gentle and progressive pressure. Final range of motion numbers were recorded. A Band-Aid was applied to the injection site. She was awake from anesthesia and taken to the PACU in stable condition.
== END 2020-09-24 11:05 | disposition home or self-care (01) ==
LOC: SUR 07:56
PROVIDERS: PCP Family Medicine; Visit Provider Student in an Organized Health Care Education/Training Program
PROC: (CPT 27570; principal; 2020-09-24 09:45)
DX: T84.82XA Fibrosis due to internal orthopedic prosthetic devices, implants and grafts, initial encounter (principal); E11.9 Type 2 diabetes mellitus without complications; E78.5 Hyperlipidemia, unspecified; H90.3 Sensorineural hearing loss, bilateral
CPT/HCPCS: 27570; J2001

== ENCOUNTER 2020-10-01 00:37 | Outpatient (CLI) | payer OTHER, SELFPAY ==
--- NOTE | 2020-10-01 13:30 | DI.US_ITS ---
APPROVED REPORT EXAM: Comprehensive 2D, Doppler, and color-flow Echocardiogram Patient Location: Out-Patient Print Line Operator: Maribel Mills RDCS (AE) Other Information Study Quality: Adequate Conclusion Normal left ventricular wall thickness and chamber size. Estimated ejection fraction is 55 to 60%. There are no segmental wall motion abnormalities Normal right ventricular size and systolic function Both atria are normal in size. There is an atrial septal aneurysm The aortic valve is trileaflet and mildly sclerotic with mild regurgitation Structurally normal mitral, tricuspid, and pulmonic valves Trace mitral, tricuspid, and pulmonic regurgitation. Right ventricular systolic pressure could not b e estimated Wall motion Left Ventricle The left ventricular systolic function is normal. The left ventricular ejection fraction is within th e normal range. There is normal left ventricular wall thickness. There is normal LV segmental wall mo tion. There is no ventricular septal defect visualized. Left ventricular thrombus is present. Left ve ntricular thrombus appears mobile. No left ventricular thrombus noted. LVEF is 55-60%. Right Ventricle The right ventricle is normal size. The right ventricular systolic function is normal. Atria The left atrium size is normal. The right atrium size is normal. Atrial septal aneurysm is present. A trial septum is hypermobile The interatrial septum is intact with no evidence for an atrial septal de fect. Aortic Valve Trileaflet mildly sclerotic aortic valve There is no aortic valvular stenosis. Mild aortic regurgitat ion. The prosthetic aortic valve is not well visualized. Bioprosthetic aortic valve is present. Mecha nical aortic valve is present. Prosthetic aortic valve is not well visualized. Cannot assess prosthet ic aortic valve opening. Mitral Valve The mitral valve is normal in structure. No evidence of mitral valve stenosis. Trace mitral regurgita tion. Tricuspid Valve The tricuspid valve is normal in structure. There is no tricuspid valve stenosis. Trace tricuspid reg urgitation. Unable to assess PA pressure. Pulmonic Valve The pulmonary valve is normal in structure. There is no pulmonic valvular stenosis. There is no pulmo marybeth valvular regurgitation. Great Vessels The aortic root is normal in size. Aortic arch is not well visualized. The ascending aorta is mildly dilated. IVC is normal in size and collapses >50% with inspiration. Pericardium There is no pericardial effusion. 2D Dimensions IVSD d PLAX 1.04 cm F: 0.6-1.0 LV Vol A2C d MOD 78.7 mL LVPW d PLAX 1.03 cm F: 0.6 - 1.0 LV Vol A4C d MOD 90.0 mL LVID d PLAX 4.01 cm F: 3.8 - 5.2 LA vol/ BSA A2C s A-L 20.1 mL/m2 LVDs 2.85 cm F: 2.2 - 3.5 LA vol/ BSA A4C s A-L 15.3 mL/m2 Ao Root d 2.48 cm F: 2.7 - 3.3 LA Vol/ BSA Biplane s A-L 19.2 mL/m2 RA Area A4C 10.87 cm2 LA Area A4C s MOD 10.96 cm2 RA Vol/ BSA A4C s A-L 13.0 mL/m2 LA Area A2C s MOD 13.78 cm2 Ao Asc Diam d 3.33 cm F: 2.3 - 3.1 LV EF A4C MOD 54.8 % LV EF Teichholz 55.0 % LV EF A2C MOD 57.7 % LVEF (Lozada's) 55.81 % F: 54 - 74 LV EF Biplane MOD 55.8 % LV Volume 67.19 mL F: 46 - 106 SV 48.06 mL LV Volume Index 37.74 mL/m2 F: 29 - 61 SV Index 26.94 mL/m2 LV Vol Biplane MOD 86.1 mL FS 28.15 % M-Mode TAPSE 1.95 cm (M/F) >1.7 LV Diastology MV E' medial 0.070 (>0.07 m/s) E/A Ratio 0.6 LV E/e MED 7.70 (<14) MV E Vmax 0.54 (0.4-1.3 m/s) MV E' lateral 0.076 (>0.1 m/s) MV A Vmax 0.90 (0.4-1.3 m/s) LV E/e LAT 7.10 (<14) MV E/A Ratio 0.57 MV E/E' medial 7.72 MV E/E' lateral 7.12 Aortic Valve LVOT Area 3.04 cm2 AoV Area Vmax 2.67 cm2 LVOT Vmax 0.95 m/s AoV Area/ BSA (Vmax) 1.50 cm2/m2 LVOT Mean Jean Claude. 0.64 m/s MISHA Mean Jean Claude. 2.70 cm2 LVOT Peak Grad 3.6 mmHg MISHA Mean Jean Claude. Index 1.51 cm2/m2 LVOT Mean Grad 1.9 mmHg AR DT 977 msec LVOT VTI 0.194 m AR PHT 283 msec LVOT Diam s 1.95 cm AoV Vmax 1.09 m/s Velocity Ratio 0.87 AoV Mean Jean Claude. 0.72 m/s AoV Peak Grad 4.7 mmHg LVOT SV 59.08 mL AoV Mean Grad 2.4 mmHg AoV VTI 0.183 m AoV Area VTI 3.23 cm2 AoV Area/ BSA (VTI) 1.81 cm/m2 Mitral Valve MV DT 271 (160-240 msec) MV PHT 79 msec MV Area PHT 2.80 cm2 Pulmonary Valve PV Vmax 0.99 (0.5-1.5 m/s) RVOT Peak Gr. 2.95 mmHg PV Peak Grad 3.9 mmHg RVOT Mean Gr. 1.40 mmHg PV Mean Grad 1.9 mmHg RVOT VTI 0.138 m PV VTI 0.159 m RVOT Vmax 0.86 m/s
== END 2020-10-01 00:57 ==
PROVIDERS: PCP Family Medicine; Visit Provider Internal Medicine Cardiovascular Disease
DX: I35.1 Nonrheumatic aortic (valve) insufficiency (principal)
CPT/HCPCS: 93306

== ENCOUNTER → 2020-10-03 14:21 | Outpatient (BNVA) | payer OTHER, SELFPAY | PROVIDERS: PCP Family Medicine; Referring Provider Family Medicine; Visit Provider Student in an Organized Health Care Education/Training Program | DX: Z47.1 Aftercare following joint replacement surgery (principal); Z96.652 Presence of left artificial knee joint; T84.82XD Fibrosis due to internal orthopedic prosthetic devices, implants and grafts, subsequent encounter ==

== ENCOUNTER 2020-10-24 03:30 | Outpatient (CLI) | payer OTHER, SELFPAY ==
[2020-10-24 08:25] LABS: Hemoglobin A1C 7.4 % (<5.7)
[2020-10-24 08:41] LABS: COMMENT (LAB VIEW ONLY) 89.28 mg/dL; Microalb ug/mg Crea 62.1 ug/mg Cr
[2020-10-24 09:00] LABS: ALT 39 U/L (14-59); AST 22 U/L (15-37); Albumin 4.2 g/dL (3.4-5.0); Alkaline Phosphatase 97 U/L (46-116); Anion Gap 9.7 mmol/L (3-11); BUN 21 mg/dL (7-18); Bilirubin, Total 0.4 mg/dL (0.2-1.0); CO2 28.3 mmol/L (21.0-32.0); CREATININE 0.96 mg/dL (0.55-1.02); Calcium 9.2 mg/dL (8.5-10.1); Chloride 102 mmol/L (98-107); Estimated GFR 57.29 (mL/min/1.73m2); Glucose 205 mg/dL (74-106); Potassium 3.9 mmol/L (3.5-5.1); Sodium 140 mmol/L (136-145); Total Protein 7.5 g/dL (6.4-8.2)
== END 2020-10-24 03:50 ==
PROVIDERS: PCP Family Medicine; Visit Provider Family Medicine
DX: E11.9 Type 2 diabetes mellitus without complications (principal)
CPT/HCPCS: 36415; 80053; 82043; 82570; 83036

== ENCOUNTER → 2020-10-31 10:42 | Outpatient (BNVA) | payer OTHER, SELFPAY | PROVIDERS: PCP Family Medicine; Visit Provider Student in an Organized Health Care Education/Training Program | DX: Z47.1 Aftercare following joint replacement surgery (principal); T84.82XA Fibrosis due to internal orthopedic prosthetic devices, implants and grafts, initial encounter; Z96.652 Presence of left artificial knee joint ==

== ENCOUNTER 2021-04-22 03:03 | Outpatient (CLI) | payer OTHER, SELFPAY ==
[2021-04-22 07:56] LABS: Hemoglobin A1C 7.7 % (<5.7)
[2021-04-22 08:05] LABS: COMMENT (LAB VIEW ONLY) 102.45 mg/dL; Microalb ug/mg Crea 67.1 ug/mg Cr
[2021-04-22 08:30] LABS: Iron 121 ug/dL (50-170); Total Iron Binding Capacity 310 ug/dL (250-450); Transferrin Sat 39 % (15-50)
[2021-04-22 08:43] LABS: ALT 29 U/L (14-59); AST 19 U/L (15-37); Alkaline Phosphatase 84 U/L (46-116); Anion Gap 13.2 mmol/L (3-11); BUN 27 mg/dL (7-18); Bilirubin, Total 0.5 mg/dL (0.2-1.0); CO2 24.8 mmol/L (21.0-32.0); CREATININE 0.9 mg/dL (0.55-1.02); Calcium 9.3 mg/dL (8.5-10.1); Chloride 104 mmol/L (98-107); Ferritin 82 ng/mL (8-252); Glucose 213 mg/dL (74-106); Magnesium 1.3 mg/dL (1.8-2.4); Potassium 3.9 mmol/L (3.5-5.1); Sodium 142 mmol/L (136-145); Total Protein 7.1 g/dL (6.4-8.2)
== END 2021-04-22 03:04 | disposition home or self-care (01) ==
LOC: LBO 03:03
PROVIDERS: PCP Family Medicine; Visit Provider Family Medicine
DX: E11.9 Type 2 diabetes mellitus without complications (principal); D50.9 Iron deficiency anemia, unspecified; E83.42 Hypomagnesemia
CPT/HCPCS: 36415; 80053; 82043; 82570; 82728; 83036; 83540; 83550; 83735

== ENCOUNTER 2021-06-19 11:04 | Outpatient (CLI) | payer OTHER, SELFPAY ==
--- NOTE | 2021-06-19 10:00 | DI.RAD_ITS ---
Exam(s) XR KNEE LT 2V AP,LAT EXAM: XR KNEE LT 2V AP,LAT CLINICAL HISTORY: L TKA. TECHNIQUE: 2D digital imaging was performed. COMPARISON: CR XR KNEE LT 1V from 07/08/2020 FINDINGS: There is stable position alignment of components of the prosthesis. No fracture or loosening evident . IMPRESSION: DATA REPOSITORY: RADIATION DOSE DELIVERED:
== END 2021-06-19 11:05 | disposition home or self-care (01) ==
LOC: DIORS 11:04
PROVIDERS: PCP Family Medicine; Referring Provider Family Medicine; Visit Provider Student in an Organized Health Care Education/Training Program
DX: Z96.652 Presence of left artificial knee joint (principal); Z47.1 Aftercare following joint replacement surgery
CPT/HCPCS: 99212; 73560

== ENCOUNTER 2021-08-14 01:33 | Outpatient (CLI) | payer OTHER, SELFPAY ==
[2021-08-14 12:57] LABS: ALT 32 U/L (14-59); AST 19 U/L (15-37); Albumin 3.9 g/dL (3.4-5.0); Alkaline Phosphatase 93 U/L (46-116); Anion Gap 12.6 mmol/L (3-11); BUN 31 mg/dL (7-18); Bilirubin, Total 0.5 mg/dL (0.2-1.0); CO2 24.4 mmol/L (21.0-32.0); CREATININE 0.9 mg/dL (0.55-1.02); Calcium 9.3 mg/dL (8.5-10.1); Calculated LDL 94 mg/dL (<100); Chloride 104 mmol/L (98-107); Cholesterol 174 mg/dL (<200); Glucose 176 mg/dL (74-106); HDL Cholesterol 49 mg/dL (40-60); Potassium 4.2 mmol/L (3.5-5.1); Sodium 141 mmol/L (136-145); Triglyceride 157 mg/dL (<150)
[2021-08-14 13:11] LABS: Hemoglobin A1C 7.8 % (<5.7)
== END 2021-08-14 01:34 | disposition home or self-care (01) ==
LOC: LOS 01:33
PROVIDERS: PCP Family Medicine; Visit Provider Family Medicine
DX: E11.9 Type 2 diabetes mellitus without complications (principal)
CPT/HCPCS: 36415; 80053; 80061; 83036

== ENCOUNTER 2021-08-29 18:55 | Emergency (ER) | payer OTHER, SELFPAY ==
[2021-08-29] VITALS (32 sets, daily range): BP systolic 110–151; BP diastolic 32–74; PULSE 66–75; RESP 10–27; TEMP 36.7; O2SAT 96–98
--- NOTE | 2021-08-29 18:57 | ED.GENADUL_ITS ---
Discharge Plan Disposition Patient Disposition: HOME Condition: Stable Discharge Details Clinical Impression: Dyspnea Primary Care Provider: Rosi Bower ED Provider: Bell Wilson Home Meds and New Rx's Prescriptions: Continued ascorbic acid (vitamin C) 500 mg tablet 500 mg PO DAILY RF: 0 cyclobenzaprine 5 mg tablet 5 mg PO BID PRN (Reason: muscle spasm) Qty: 21 RF: 0 ropinirole 2 mg tablet 2 mg PO QHS Qty: 30 RF: 6 nitroglycerin 0.4 mg tablet, sublingual 0.4 mg SL ONCE PRN (Reason: chest pain) Qty: 20 RF: 0 metoprolol tartrate 50 mg tablet 50 mg PO BID Qty: 180 RF: 1 aspirin 81 mg tablet,delayed release (DR/EC) 81 mg PO DAILY RF: 0 (DME) Blood Glucose Test 1 EACH strip 1 ea Miscellaneous DAILY Qty: 100 RF: 2 sertraline [Zoloft] 50 mg tablet 50 mg PO HS Qty: 90 RF: 4 ropinirole 1 mg tablet 1 mg PO QHS Qty: 90 RF: 4 atorvastatin [Lipitor] 80 mg tablet 80 mg PO DAILY Qty: 90 RF: 4 glipizide 10 mg tablet 10 mg PO BID Qty: 180 RF: 4 losartan 100 mg tablet 100 mg PO DAILY Qty: 90 RF: 4 amlodipine 10 mg tablet 10 mg PO DAILY Qty: 90 RF: 4 dapagliflozin 10 mg tablet 10 mg PO DAILY Qty: 90 RF: 4 Slow-Mag 71.5 mg tablet,delayed release (DR/EC) 71.5 mg PO BID Qty: 180 RF: 1 metformin [Glucophage] 1,000 mg tablet 1,500 mg PO HS Qty: 135 RF: 4 ferrous sulfate 325 mg (65 mg iron) tablet 650 mg PO BID Qty: 120 RF: 3 chlorthalidone 50 mg tablet 50 mg PO DAILY Qty: 90 RF: 4 ibuprofen 600 mg tablet 600 mg PO TID Qty: 60 RF: 3 acetaminophen 500 mg tablet 1,000 mg PO Q8H PRN (Reason: pain) Qty: 90 RF: 3 Discharge Instructions Instructions: Dyspnea (ED) Additional Instructions: Your lab work, CAT scan and EKGs today are reassuring and did not note any acute significant findings. Your Covid test is pending and likely will be resulted in the morning. You will be notified regarding your result when available. Drink plenty of fluids and get plenty of rest. Call your primary care doctor on Wednesday morning to schedule a follow-up appointment for reevaluation within the next week. Return immediately to the emergency department if you develop any worsening or new concerning symptoms such as fever, worsening chest pain, shortness of breath or any other concerns. Stand Alone Forms: PENDING COVID-19 TESTING Discharge Data Discharge Date/Time-TO BE ENTERED AT DEPARTURE: 08/29/21 22:55 Discharge Physician: Bell Wilson Medical Decision Making 1910 -- 71-year-old female with a history of coronary artery disease with 2 coronary stents, diabetes, hypertension, hyperlipidemia presents for shortness of breath today. Similar shortness of breath but does not have chest discomfort as she had with her IL 2 years ago. Denies any chest pain. No relief with nitro. She appears comfortable and nontoxic. Vitals within normal limits. EKG notes a rate of 68, sinus, no STEMI and nondiagnostic. Differential diagnosis includes ACS, PE, pneumonia, CHF, dehydration, anxiety. Will place an IV, bolus IV fluids, screening labs, CT chest and will plan for delta troponin and EKG. 1999 --labs and imaging reviewed. Normal white blood cell count. Creatinine 1.5, GFR 34, diminished from recent results. Magnesium 1.6, will replete. Troponin negative. BNP negative. CT chest negative. Pt reassessed and she feels better. Discussed that her symptoms may be multifactorial, associated possibly with dehydration, anxiety, etc. She is agreeable to stay for repeat troponin. 2229 -- Repeat troponin negative. Repeat EKG unchanged. Patient remains asymptomatic and feels comfortable going home. Advised to follow up with the primary care doctor for re-evaluation. Usual and customary return precautions given prior to discharge. Medical Records Medical records reviewed: Yes I reviewed the patient's medical records. Imaging Data Radiologic Study: Radiologist's impression: CTA Chest With Contrast Exam date and time: 08/29/2021 7:18 PM Age: 71 years old Clinical indication: Shortness of breath TECHNIQUE: Imaging protocol: Computed tomographic angiography of the chest with contrast. 3D rendering (Not supervised by radiologist): MIP and/or 3D reconstructed images were created by the technologist. Contrast material: OMNI 350; Contrast volume: 100 ml; Contrast route: INTRAVENOUS (IV); COMPARISON: CR XR CHEST 2V PA LATERAL 09/22/2020 8:39 PM FINDINGS: Pulmonary arteries: Normal. No pulmonary emboli. Aorta: Unremarkable. No aortic aneurysm. No aortic dissection. Other arteries: The vasculature demonstrates diffuse mild atherosclerotic calcification. Lungs: Mild diffuse ground-glass opacification throughout the peripheral right lower lobe most likely compatible with dependent atelectatic changes. Pleural spaces: Unremarkable. No pneumothorax. No pleural effusion. Heart: Moderate atherosclerotic calcifications of the coronary arteries. Lymph nodes: Unremarkable. No enlarged lymph nodes. Bones/joints: Unremarkable. No acute fracture. Soft tissues: Unremarkable. IMPRESSION: No evidence of pulmonary embolism. No evidence of pneumonia. Lab Data Lab results reviewed: Yes I reviewed the patient's lab results. Labs: Laboratory Tests Range/Units 08/29/21 08/29/21 08/29/21 19:20 19:20 19:20 WBC (4.4-10.8) 10^3/uL 7.52 RBC (3.93-5.22) 10^6/uL 4.24 Hgb (11.2-15.7) g/dL 12.2 Hct (36.0-46.0) % 37.9 MCV (80-95) fL 89.4 MCH (27.0-33.0) pg 28.8 MCHC (32.0-36.0) % 32.2 RDW (11.7-14.6) % 12.9 Plt Count (130-400) 10^3/uL 179 MPV (8.0-11.0) fL 11.8 H Immature Gran % 0.5 Neutrophils % 61.9 Lymphocytes % 25.8 Monocytes % 9.3 Eosinophils % 2.1 Basophils % 0.4 Nucleated RBC % % 0 Absolute Neutrophils (1.2-6.7) 10^3/uL 4.65 Absolute Lymphocytes (1.2-3.4) 10^3/uL 1.94 Absolute Monocytes (0.1-0.8) 10^3/uL 0.70 Absolute Eosinophils (0.0-0.7) 10^3/uL 0.16 Absolute Basophils (0.0-0.2) 10^3/uL 0.03 Sodium (136-145) mmol/L 141 Potassium (3.5-5.1) mmol/L 4.1 Chloride (98-107) mmol/L 107 Carbon Dioxide (21.0-32.0) mmol/L 25.9 Anion Gap (3-11) mmol/L 8.1 BUN (7-18) mg/dL 43 H Creatinine (0.55-1.02) mg/dL 1.5 H Estimated GFR/1.73 m2 (mL/min/1.73m2) 34.13 Glucose (74-106) mg/dL 202 H Calcium (8.5-10.1) mg/dL 9.4 Magnesium (1.8-2.4) mg/dL 1.6 L Total Bilirubin (0.2-1.0) mg/dL 0.2 AST (15-37) U/L 16 ALT (14-59) U/L 27 Alkaline Phosphatase (46-116) U/L 105 Troponin I (<0.06) ng/mL < 0.05 NT-Pro-B Natriuret Pep (<300) pg/mL 204 Total Protein (6.4-8.2) g/dL 7.2 Albumin (3.4-5.0) g/dL 3.7 COVID-19 Source SARS-CoV-2 (PCR) (Negative) Range/Units 08/29/21 08/29/21 19:50 22:00 WBC (4.4-10.8) 10^3/uL RBC (3.93-5.22) 10^6/uL Hgb (11.2-15.7) g/dL Hct (36.0-46.0) % MCV (80-95) fL MCH (27.0-33.0) pg MCHC (32.0-36.0) % RDW (11.7-14.6) % Plt Count (130-400) 10^3/uL MPV (8.0-11.0) fL Immature Gran % Neutrophils % Lymphocytes % Monocytes % Eosinophils % Basophils % Nucleated RBC % % Absolute Neutrophils (1.2-6.7) 10^3/uL Absolute Lymphocytes (1.2-3.4) 10^3/uL Absolute Monocytes (0.1-0.8) 10^3/uL Absolute Eosinophils (0.0-0.7) 10^3/uL Absolute Basophils (0.0-0.2) 10^3/uL Sodium (136-145) mmol/L Potassium (3.5-5.1) mmol/L Chloride (98-107) mmol/L Carbon Dioxide (21.0-32.0) mmol/L Anion Gap (3-11) mmol/L BUN (7-18) mg/dL Creatinine (0.55-1.02) mg/dL Estimated GFR/1.73 m2 (mL/min/1.73m2) Glucose (74-106) mg/dL Calcium (8.5-10.1) mg/dL Magnesium (1.8-2.4) mg/dL Total Bilirubin (0.2-1.0) mg/dL AST (15-37) U/L ALT (14-59) U/L Alkaline Phosphatase (46-116) U/L Troponin I (<0.06) ng/mL < 0.05 NT-Pro-B Natriuret Pep (<300) pg/mL Total Protein (6.4-8.2) g/dL Albumin (3.4-5.0) g/dL COVID-19 Source Nasal/Nares SARS-CoV-2 (PCR) (Negative) Negative ECG Data Attestation: I personally reviewed and interpreted this ECG (s) as follows: Interpretation: #1 -- rate of 68, sinus, no acute ST elevation or depression. ND 183. QRS 88. QTc 434. #2 -- rate of 66, sinus, no acute ST elevation or depression. ND 201. QRS 88. QTc 451. HPI General Mode of arrival: ambulatory . Date/Time Provider Initiated Documentation: 08/29/21 18:56 . Limitations to Documentation: no limitations . Information obtained by: patient . HPI Narrative: Patient is a 71-year-old female with a history of coronary artery disease with 2 coronary stents, diabetes, hypertension, hyperlipidemia presents for shortness of breath that started at work today. 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 She denies any aggravating or alleviating factors and states the pain is not worse with exertion and not improved with 2 nitro today. She states she had similar shortness of breath but also associated with chest discomfort with her IL 2 years ago. She denies any chest pain today or at present. She states she otherwise has been doing well and denies any fever, cough, nausea, vomiting, diarrhea, dizziness, leg swelling. She states she has been eating and drinking normally. She is fully vaccinated for Covid and denies any known exposure to coronavirus. Related Data Home Medications Medication Instructions Recorded Confirmed Blood Glucose Test #100 strip 02/12/17 07/22/21 ascorbic acid (vitamin C) 500 mg 500 mg PO DAILY 09/12/19 08/29/21 tablet aspirin 81 mg tablet,delayed 81 mg PO DAILY tab 09/09/20 08/29/21 release acetaminophen 1,000 mg PO Q8H PRN #90 tab 09/24/20 08/29/21 ibuprofen 600 mg PO TID #60 tab 09/24/20 08/29/21 ropinirole 1 mg tablet 1 mg PO QHS #90 tab 11/13/20 08/29/21 sertraline 50 mg tablet 50 mg PO HS #90 tab-cap 11/13/20 08/29/21 atorvastatin 80 mg tablet 80 mg PO DAILY #90 tab 01/07/21 08/29/21 glipizide 10 mg tablet 10 mg PO BID #180 tab-cap 01/07/21 08/29/21 losartan 100 mg tablet 100 mg PO DAILY #90 tab 01/11/21 08/29/21 amlodipine 10 mg tablet 10 mg PO DAILY #90 tab 03/17/21 08/29/21 nitroglycerin 0.4 mg sublingual 0.4 mg SL ONCE PRN #20 tab 05/14/21 08/29/21 tablet metoprolol tartrate 50 mg tablet 50 mg PO BID #180 tab 05/15/21 08/29/21 dapagliflozin 10 mg tablet 10 mg PO DAILY #90 tab 05/16/21 08/29/21 magnesium chloride 71.5 mg 71.5 mg PO BID #180 tab 05/26/21 08/29/21 (magnesium chloride) tablet,delayed release metformin 1,000 mg tablet 1,500 mg PO HS #135 tab 05/28/21 08/29/21 ferrous sulfate 325 mg (65 mg 650 mg PO BID #120 tab 07/14/21 08/29/21 iron) tablet cyclobenzaprine 5 mg tablet 5 mg PO BID PRN #21 tab 07/21/21 08/29/21 ropinirole 2 mg tablet 2 mg PO QHS #30 tab 07/21/21 08/29/21 chlorthalidone 50 mg tablet 50 mg PO DAILY #90 tab 08/16/21 08/29/21 Previous Rx's Medication Instructions Recorded acetaminophen 1,000 mg PO Q8H PRN #90 tab 09/24/20 ibuprofen 600 mg PO TID #60 tab 09/24/20 ropinirole 1 mg tablet 1 mg PO QHS #90 tab 11/13/20 sertraline 50 mg tablet 50 mg PO HS #90 tab-cap 11/13/20 atorvastatin 80 mg tablet 80 mg PO DAILY #90 tab 01/07/21 glipizide 10 mg tablet 10 mg PO BID #180 tab-cap 01/07/21 losartan 100 mg tablet 100 mg PO DAILY #90 tab 01/11/21 amlodipine 10 mg tablet 10 mg PO DAILY #90 tab 03/17/21 nitroglycerin 0.4 mg sublingual 0.4 mg SL ONCE PRN #20 tab 05/14/21 tablet metoprolol tartrate 50 mg tablet 50 mg PO BID #180 tab 05/15/21 dapagliflozin 10 mg tablet 10 mg PO DAILY #90 tab 05/16/21 magnesium chloride 71.5 mg 71.5 mg PO BID #180 tab 05/26/21 (magnesium chloride) tablet,delayed release metformin 1,000 mg tablet 1,500 mg PO HS #135 tab 05/28/21 ferrous sulfate 325 mg (65 mg 650 mg PO BID #120 tab 07/14/21 iron) tablet cyclobenzaprine 5 mg tablet 5 mg PO BID PRN #21 tab 07/21/21 ropinirole 2 mg tablet 2 mg PO QHS #30 tab 07/21/21 chlorthalidone 50 mg tablet 50 mg PO DAILY #90 tab 08/16/21 Allergies Allergy/AdvReac Type Severity Reaction Status Date / Time hydrochlorothiazide AdvReac Mild GI upset Verified 08/29/21 19:06 lisinopril AdvReac Mild cough Verified 08/29/21 19:06 naproxen AdvReac Mild Itching Verified 08/29/21 19:06 oxycodone HCl [From Percocet] AdvReac Mild n and v Verified 08/29/21 19:06 tetracycline AdvReac Mild G[set Verified 08/29/21 19:06 General SHARRON: 2 Review of Systems All systems reviewed & are unremarkable except as noted in HPI and below Constitutional Constitutional: Reports as per HPI, Denies chills and Denies fever(s) Eyes Eyes: Denies blurry vision ENT Ears, Nose, Mouth, and Throat: Denies dizziness, Denies sore throat and Denies throat swelling Cardiovascular Cardiovascular: Denies chest pain and Reports dyspnea Respiratory Respiratory: Denies cough and Reports dyspnea Gastrointestinal Gastrointestinal: Denies abdominal pain, Denies diarrhea and Denies vomiting Genitourinary Genitourinary: Denies hematuria and Denies dysuria Musculoskeletal Musculoskeletal: Denies back pain and Denies numbness Integumentary/Breasts Skin/Breast: Denies lesions and Denies rash Neurologic Neurologic: Denies dizziness, Denies localized weakness and Denies numbness Allergic/Immunologic Allergic/Immunologic: Denies throat swelling [facility] Medical History Cataracts, both eyes (08/24/17) [facility]; MILD Depressive disorder Diabetes mellitus (04/26/13) Ophtalmo. neg. 07/2016)/no nephro 2015 Essential hypertension (10/24/13) Hyperlipidemia (04/26/13) Increased body mass index Moderate aortic regurgitation (04/09/15) echo. : stable x 03/2015/ -2016:stable Normal vascular exam no lower extremity arterial occlusive disease/ [facility] Vascular lab. 08-25-2018 Primary osteoarthritis of left knee (06/16/18) Injected: 12/14/2019 Sensorineural hearing loss, bilateral (03/18/17) Status post left heart catheterization (LHC) (~08/2018) 2 stents RCA. Surgical History Abdominal hysterectomy (~1997) Carpal tunnel syndrome, right S/P OCTR 01/08/2020 History of carpal tunnel release of both wrists (~2015) Myocardial infarct Aug 2018. Stenting x2 Status post total knee replacement, left (06/18/20) Family History Mother , 63 Diabetes Father , 80's Stroke Sister , 65 Neoplasm Sister , 80's Cancer Brother , 60's Heart disease Brother , 78 Diabetes Alcohol abuse Social History (Updated 07/21/21 @ 16:42 by Ailyn Ramirez) Smoking/Tobacco Use Status: Former Tobacco Use tobacco type: cigarettes Quit Date: 11/22/89 Pack-years: 40 Tobacco: How many years used: 20 Second Hand Exposure: Yes Smoking risk assessment performed?: Yes Alcohol Intake: never Drug use: Never Substance use type: does not use Household members: none Housing: house Do you need help understanding health information?: Never 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 Pets and animals: No Sexually active: No Do you think of yourself as: straight/heterosexual Current gender identity: female What is your relationship status?: How often do you talk on the phone with friends or family?: three or more times per week How often do you get together with friends or relatives?: three or more times per week How often do you attend cheondoism or mandaeism services?: 1-3 times per year Do you belong to any clubs or organized social groups?: no Panel score (0-1 are the most socially isolated patients): 1 What type of physical activity do you participate in: walking Frequency: daily [place]/Orthodox: Buddhist Special carol[place] needs: No Seatbelt use: always Helmet use: No Drive intox or ride w/intox six horse hitch driver: No Do you feel safe at home: Yes Additional Social history: Lives alone; daughter is with pt - unable to ask privately Exam Const General: cooperative and no acute distress HENMT Head: normal to inspection Face and sinus: normal facial exam Eyes General: appearance normal, both eyes and all related structures EOM: EOM intact bilaterally Neck Neck: normal visual inspection and No submandibular swelling Lymphatic: no lymphadenopathy noted Chest Chest: normal inspection of the chest and no tenderness Resp Effort & Inspection: normal respiratory effort and able to speak in complete sentences Auscultation: clear to auscultation bilaterally Cardio Rate: regular rate Rhythm: regular rhythm GI Inspection: normal to inspection Palpation: soft, not firm, not rigid and nontender Auscultation: normal bowel sounds Skin General skin exam: no rashes or lesions noted Neuro General: patient alert, patient awake and patient oriented x3 Cognition: normal cognition Speech: speech normal Motor: muscle tone normal throughout Sensory Exam: no sensory deficits noted Extrem General: normal to inspection, full ROM, capillary refill normal, no calf tenderness bilaterally and no edema Psych Appearance: grossly normal Mental Status: mental status grossly normal Speech and Movement: speech and movement normal Affect: normal affect
--- NOTE | 2021-08-29 19:00 | RT.EKG_ITS ---
APPROVED REPORT Exam: Resting ECG Reason for Exam: short of breath Patient Location: E HR:68 bpm ECG Measurements Heart Rate 68 AXIS MO 183 P 50 QRSd 88 QRS 32 QT 408 T 43 QTc 434 Conclusion Sinus rhythm...normal P axis, V-rate 60- 99. Sinus. No STEMI. I have reviewed and interpreted ECG and agree with software generated interpretation.
--- NOTE | 2021-08-29 19:15 | DI.CT_ITS ---
Exam(s) CT CHEST PE CTA EXAM: CT CHEST PE CTA CLINICAL HISTORY: shortness of breath, r/o PE, pneumonia. TECHNIQUE: Imaging Protocol: CT angiography of the chest was performed using pulmonary embolus veronica col. Multi planar reconstructions were performed. CONTRAST MATERIAL: Intravenous: Omnipaque 350 Contrast volume: 100 cc COMPARISON: No exams were available for comparison FINDINGS: CHEST: PULMONARY ARTERIES: There are no intraluminal filling defects to suggest acute pulmonary emboli. LUNGS: There are no infiltrates nor evidence of pulmonary infarction.. There are no pleural effusions . Small calcified granuloma in the right lower lobe noted. MEDIASTINUM: There is no hilar nor mediastinal adenopathy. Visualized thyroid unremarkable. CARDIAC: Heart size is upper normal. There is no pericardial effusion.Caliber of the thoracic aorta is within normal limits. There is no significant shift of the interventricular septum. PARTIALLY VISUALIZED UPPERMOST ABDOMEN: Slight thickening of the genu of the left adrenal gland noted . Possibly small adenoma. Right adrenal gland appears unremarkable OSSEOUS: No significant osseous lesions.. IMPRESSION: 1. No evidence of acute pulmonary emboli. No evidence of pulmonary infarction.No pleural effusions. 2. No confluent infiltrates. 3. No intrathoracic adenopathy evident. RADIATION DOSE DELIVERED: 389.21mGy.cm Total DLP DATA REPOSITORY: All CT scans at this facility are submitted to the National Radiology Data Registry (NRDR) Dose Index Registry (DIR) with the [employer] (ACR). RADIATION OPTIMIZATION: All CT scans at this facility use at least one of these dose optimization te chniques: automated exposure control; mA and/or kV adjustment per patient size (includes targeted exa ms where dose is matched to clinical indication); or iterative reconstruction.
[2021-08-29 19:30] LABS: Abs Immature Grans 0.04 10^3/uL (0.0-0.06); Absolute Basophil Count 0.03 10^3/uL (0.0-0.2); Absolute Eosinophil Count 0.16 10^3/uL (0.0-0.7); Absolute Lymphocyte Count 1.94 10^3/uL (1.2-3.4); Absolute Neutrophil Count 4.65 10^3/uL (1.2-6.7); Basophils % 0.4; Eosinophils % 2.1; HCT 37.9 % (36.0-46.0); HGB 12.2 g/dL (11.2-15.7); Immature Grans % 0.5; Lymphocytes % 25.8; MCH 28.8 pg (27.0-33.0); MCHC 32.2 % (32.0-36.0); MCV 89.4 fL (80-95); MPV 11.8 fL (8.0-11.0); Monocytes % 9.3; Neutrophils % 61.9; Nucleated RBC 0 %; Platelet Count 179 10^3/uL (130-400); RBC 4.24 10^6/uL (3.93-5.22); RDW 12.9 % (11.7-14.6); RDW-SD 42.1 fL; WBC 7.52 10^3/uL (4.4-10.8)
[2021-08-29] MEDS: Omnipaque 350 MG/ML 100 ML BTL IJ (19:46)
[2021-08-29] MEDS: Normal Saline - Diluent 50 ML VIAL IV (19:46)
[2021-08-29 19:48] LABS: ALT 27 U/L (14-59); AST 16 U/L (15-37); Albumin 3.7 g/dL (3.4-5.0); Alkaline Phosphatase 105 U/L (46-116); Anion Gap 8.1 mmol/L (3-11); BUN 43 mg/dL (7-18); Bilirubin, Total 0.2 mg/dL (0.2-1.0); CO2 25.9 mmol/L (21.0-32.0); CREATININE 1.5 mg/dL (0.55-1.02); Calcium 9.4 mg/dL (8.5-10.1); Chloride 107 mmol/L (98-107); Estimated GFR 34.13 (mL/min/1.73m2); Glucose 202 mg/dL (74-106); Magnesium 1.6 mg/dL (1.8-2.4); Potassium 4.1 mmol/L (3.5-5.1); Sodium 141 mmol/L (136-145); Total Protein 7.2 g/dL (6.4-8.2)
[2021-08-29 19:53] LABS: Troponin I < 0.05 ng/mL (<0.06)
[2021-08-29 19:54] LABS: NT-proBNP 204 pg/mL (<300)
[2021-08-29 19:58] LABS: Source Nasal/Nares
[2021-08-29] MEDS: Normal Saline 500 ML 1000 ML IV (20:05)
[2021-08-29] MEDS: MAGNESIUM SULFATE 1 GM/100 ML BAG IVPB (20:06)
--- NOTE | 2021-08-29 20:06 | DI.VRAD_ITS ---
PROCEDURE INFORMATION: Exam: CTA Chest With Contrast Exam date and time: 08/29/2021 7:18 PM Age: 71 years old Clinical indication: Shortness of breath TECHNIQUE: Imaging protocol: Computed tomographic angiography of the chest with contrast. 3D rendering (Not supervised by radiologist): MIP and/or 3D reconstructed images were created by the technologist. Contrast material: OMNI 350; Contrast volume: 100 ml; Contrast route: INTRAVENOUS (IV); COMPARISON: CR XR CHEST 2V PA LATERAL 09/22/2020 8:39 PM FINDINGS: Pulmonary arteries: Normal. No pulmonary emboli. Aorta: Unremarkable. No aortic aneurysm. No aortic dissection. Other arteries: The vasculature demonstrates diffuse mild atherosclerotic calcification. Lungs: Mild diffuse ground-glass opacification throughout the peripheral right lower lobe most likely compatible with dependent atelectatic changes. Pleural spaces: Unremarkable. No pneumothorax. No pleural effusion. Heart: Moderate atherosclerotic calcifications of the coronary arteries. Lymph nodes: Unremarkable. No enlarged lymph nodes. Bones/joints: Unremarkable. No acute fracture. Soft tissues: Unremarkable. IMPRESSION: No evidence of pulmonary embolism. No evidence of pneumonia. Dictated and Authenticated by: William Julian MD. Ordering:JUDY Luu MD
--- NOTE | 2021-08-29 22:15 | RT.EKG_ITS ---
APPROVED REPORT Exam: Resting ECG Reason for Exam: shortness of breath Patient Location: E HR:66 bpm ECG Measurements Heart Rate 66 AXIS GA 201 P 22 QRSd 88 QRS 37 QT 429 T 37 QTc 451 Conclusion Sinus rhythm...normal P axis, V-rate 60- 99. Sinus. No STEMI. I have reviewed and interpreted ECG and agree with software generated interpretation.
[2021-08-29 22:26] LABS: Troponin I < 0.05 ng/mL (<0.06)
[2021-08-30 15:23] LABS: COVID-19 PCR Negative (Negative)
--- NOTE | 2021-09-02 08:50 | NUR.NOTE ---
negative covid result given via phone to pt. spoke to her.Nursing Note:
== END 2021-08-29 22:55 | disposition home or self-care (01) ==
PROVIDERS: Emergency Provider Physician Assistant; PCP Family Medicine
DX: R06.00 Dyspnea, unspecified (principal); I25.10 Atherosclerotic heart disease of native coronary artery without angina pectoris; I10 Essential (primary) hypertension; R06.02 Shortness of breath
CPT/HCPCS: 71275; 80053; 87635; 93005; 96361; 96365; 99285; 83735; 83880; 84484; 85025; 93010; 99284; J3475; J3490

== ENCOUNTER → 2021-09-16 08:49 | Outpatient (BNVA) | payer MEDICARE, MEDICAID, SELFPAY | PROVIDERS: PCP Family Medicine; Referring Provider Family Medicine; Visit Provider Internal Medicine Cardiovascular Disease | DX: I25.10 Atherosclerotic heart disease of native coronary artery without angina pectoris (principal); I65.21 Occlusion and stenosis of right carotid artery; I10 Essential (primary) hypertension; E78.5 Hyperlipidemia, unspecified | CPT/HCPCS: 99214; 99213 ==

== ENCOUNTER 2021-09-30 00:56 | Outpatient (CLI) | payer MEDICARE, MEDICAID, SELFPAY ==
--- NOTE | 2021-09-30 07:30 | DI.US_ITS ---
Exam(s) US CAROTID EXAM: US CAROTID CLINICAL HISTORY: F/U LT CAROTID STENOSIS, I65.29. TECHNIQUE: Ultrasound carotids performed using grayscale, color-flow, and spectral Doppler imaging. COMPARISON: US CAROTID ULTRASOUND from 05/16/2018 FINDINGS: RIGHT CAROTID ARTERY: Plaque: [id number] plaque throughout with sparing of the mid and distal ICA. Velocity elevation: None. LEFT CAROTID ARTERY: Plaque: Moderate to severe plaque throughout with sparing of the mid and distal ICA and ECA. Velocity elevation: Yes VERTEBRAL ARTERIES: Antegrade flow. Measurements: R Bulb: 61 PS/10 ED R CCA: 93 PS/13 ED R ECA: 185 PS/9 ED R ICA Prox: 103 PS/19 ED R ICA Mid: 74 PS/60 ED R ICA Distal: 89 PS/21 ED R Vert: 69 PS/12 ED R SVR: 1.12 R DVR: 1.47 L Bulb: 101 PS/17 ED L CCA: 99 PS/13 ED L ECA: 162 PS/11 ED L ICA Prox:134 PS/26 ED L ICA Mid: 122PS/18 ED L ICA Distal: 119 PS/21 ED L Vert: 72 PS/10 ED L SVR: 1.4 L DVR: 2 IMPRESSION: Findings again seen of 50-69 percent stenosis of the left ICA. No hemodynamically significant stenos is on the right. Criteria for Carotid Stenosis: Normal: ICA PSV <125 cm/s no plaque or intimal thickening is visible. <50% stenosis: ICA PSV <125 cm/s and plaque or intimal thickening is visible. 50-69% stenosis: ICA PSV is 125-250 cm/s and plaque is visible. >70% stenosis to near occlusion: ICA PSV >250 cm/s with visible plaque and luminal narrowing. DATA REPOSITORY:
== END 2021-09-30 01:16 ==
PROVIDERS: PCP Family Medicine; Visit Provider Internal Medicine Cardiovascular Disease
DX: I65.22 Occlusion and stenosis of left carotid artery (principal)
CPT/HCPCS: 93880

== ENCOUNTER 2022-01-13 03:47 | Outpatient (CLI) | payer OTHER, MEDICAID, SELFPAY ==
[2022-01-13 09:13] LABS: ALT 32 U/L (14-59); AST 16 U/L (15-37); Albumin 3.8 g/dL (3.4-5.0); Alkaline Phosphatase 78 U/L (46-116); Anion Gap 9.8 mmol/L (3-11); BUN 25 mg/dL (7-18); Bilirubin, Total 0.4 mg/dL (0.2-1.0); CO2 27.2 mmol/L (21.0-32.0); CREATININE 0.8 mg/dL (0.55-1.02); Calcium 9.3 mg/dL (8.5-10.1); Chloride 106 mmol/L (98-107); Glucose 181 mg/dL (74-106); Potassium 4.7 mmol/L (3.5-5.1); Sodium 143 mmol/L (136-145); Total Protein 6.9 g/dL (6.4-8.2)
== END 2022-01-13 03:48 | disposition home or self-care (01) ==
LOC: LBO 03:48
PROVIDERS: Visit Provider Family Medicine
DX: E11.9 Type 2 diabetes mellitus without complications (principal)
CPT/HCPCS: 36415; 80053

== ENCOUNTER → 2022-02-26 09:30 | Outpatient (BNVA) | payer OTHER, MEDICAID, SELFPAY | PROVIDERS: Visit Provider Student in an Organized Health Care Education/Training Program | DX: R69 Illness, unspecified (principal) ==

== ENCOUNTER 2022-05-07 04:03 | Outpatient (CLI) | payer OTHER, MEDICAID, SELFPAY ==
[2022-05-07 12:44] LABS: COMMENT (LAB VIEW ONLY) 53.55 mg/dL; Microalb ug/mg Crea 46.1 ug/mg Cr
[2022-05-07 12:57] LABS: ALT 29 U/L (14-59); AST 18 U/L (15-37); Albumin 3.6 g/dL (3.4-5.0); Alkaline Phosphatase 87 U/L (46-116); Anion Gap 9.7 mmol/L (3-11); BUN 21 mg/dL (7-18); Bilirubin, Total 0.5 mg/dL (0.2-1.0); CO2 25.3 mmol/L (21.0-32.0); CREATININE 0.9 mg/dL (0.55-1.02); Calcium 9.1 mg/dL (8.5-10.1); Calculated LDL 76 mg/dL (<100); Chloride 105 mmol/L (98-107); Cholesterol 151 mg/dL (<200); Glucose 182 mg/dL (74-106); HDL Cholesterol 44 mg/dL (40-60); Potassium 4.3 mmol/L (3.5-5.1); Sodium 140 mmol/L (136-145); Total Protein 7.2 g/dL (6.4-8.2); Triglyceride 155 mg/dL (<150)
== END 2022-05-07 04:04 | disposition home or self-care (01) ==
LOC: LOS 04:04
DX: I10 Essential (primary) hypertension (principal); E11.9 Type 2 diabetes mellitus without complications; E78.5 Hyperlipidemia, unspecified
CPT/HCPCS: 36415; 80053; 80061; 82043; 82570

== ENCOUNTER 2022-06-23 12:19 | Emergency (ER) | payer OTHER, MEDICAID, SELFPAY ==
[2022-06-23 12:22] VITALS: BP 150/51; PULSE 73; RESP 16; TEMP 36.6; O2SAT 97
--- NOTE | 2022-06-23 13:06 | DI.RAD_ITS ---
Exam(s) XR HAND RT COMPLETE EXAM: XR HAND RT COMPLETE CLINICAL HISTORY: cut with glass, r/o fx vs fb. TECHNIQUE: 2D digital imaging was performed of the right hand. Three images were obtained. AP, late ral and oblique views were obtained. COMPARISON: No exams were available for comparison FINDINGS: BONES: No acute fracture is present. No bony destructive lesion is seen. JOINTS: No dislocation present. SOFT TISSUE: Normal. No radiopaque foreign body. IMPRESSION: No acute fracture, dislocation or radiopaque foreign body. DATA REPOSITORY: RADIATION DOSE DELIVERED:
[2022-06-23 13:51] VITALS: BP 141/77; PULSE 69; RESP 18; O2SAT 97
--- NOTE | 2022-06-23 14:05 | W.ED.GENAD ---
Discharge Plan Disposition Patient Disposition: HOME Condition: Stable Discharge Details Clinical Impression: Laceration of right hand Primary Care Provider: Corin Orlando ED Provider: Bell Wilson Home Meds and New Rx's Prescriptions: New cephalexin 500 mg capsule 500 mg PO TID 3 Days Qty: 9 0RF Continued ascorbic acid (vitamin C) 500 mg tablet 500 mg PO DAILY nitroglycerin 0.4 mg tablet, sublingual 0.4 mg SL ONCE PRN (Reason: chest pain) Qty: 20 0RF Rx Instructions: take one tablet if chest pain; repeat 5minutes later x 2 if no relief dapagliflozin 10 mg tablet 10 mg PO DAILY Qty: 90 4RF aspirin 81 mg tablet,delayed release (DR/EC) 81 mg PO DAILY cyclobenzaprine 5 mg tablet 5 mg PO BID PRN (Reason: muscle spasm) Qty: 21 0RF (DME) Blood Glucose Test 1 EACH strip 1 ea Miscellaneous DAILY Qty: 100 Rx Instructions: BIRTHING NURSE PLUS TEST STRIPS/ PT DOES NOT USE INSULIN. DIAGNOSIS CODE e11.9 chlorthalidone 50 mg tablet 50 mg PO DAILY Qty: 90 4RF metoprolol tartrate 50 mg tablet 50 mg PO BID Qty: 180 3RF Rx Instructions: 24- increased dose/ take one tablet twice a day sertraline [Zoloft] 50 mg tablet 50 mg PO HS Qty: 90 4RF amlodipine 10 mg tablet 10 mg PO DAILY Qty: 90 4RF Rx Instructions: take one tablet daily atorvastatin [Lipitor] 80 mg tablet 80 mg PO DAILY Qty: 90 4RF Rx Instructions: Slow-Mag 71.5 mg tablet,delayed release (DR/EC) 71.5 mg PO BID Qty: 180 1RF ropinirole 2 mg tablet 2 mg PO QHS Qty: 30 6RF Rx Instructions: administer 1-3 hours before bedtime metformin 1,000 mg tablet 1,500 mg PO QHS Qty: 135 4RF Hold Instructions: Home Medication placed on hold at Doctor's office Rx Instructions: take one and a half in pm ibuprofen 600 mg tablet 600 mg PO TID PRN (Reason: fever or pain) Qty: 60 3RF Rx Instructions: TAKE WITH FOOD ferrous sulfate 325 mg (65 mg iron) tablet 650 mg PO BID Qty: 180 3RF glipizide 10 mg tablet 10 mg PO BID Qty: 180 3RF losartan 100 mg tablet 100 mg PO DAILY Qty: 90 3RF acetaminophen 500 mg tablet 1,000 mg PO Q8H PRN (Reason: pain) Qty: 90 3RF Discharge Instructions Instructions: Laceration (ED) Additional Instructions: Keep wound clean and dry. Cover wound with bandage if risk of contamination. Otherwise you can keep the wound open to air if resting at home to allow edges to dry and heal. A prescription for antibiotics has been sent electronically to [facility] in [facility] to take as directed until finished. Return to the emergency department in 7 days for suture removal. Return to the emergency department at any time if you develop any fever, redness, pain or swelling in your right hand. Stand Alone Forms: Work Release Discharge Data Discharge Date/Time-TO BE ENTERED AT DEPARTURE: 06/23/22 15:24 Discharge Physician: Bell Wilson Medical Decision Making 72yo F presents with right hand laceration sustained when her [employer] feeder broke and a piece of glass cut her hand prior to arrival. Tetanus up to date. Pt has a 1.5cm linear laceration noted on the palmar surface of her right hand. Neurovascularly intact. Xray negative for fracture and foreign body. 3 nylon 5-0 sutures placed. Will treat with prophylactic antibiotics. Antibiotic ointment and dressing applied. Advised on proper wound care. Advised return to ED in 7 days suture movable. Usual and customary return precautions given prior to discharge. Medical Records Medical records reviewed: Yes I reviewed the patient's medical records. Imaging Data Radiologic Study: Radiologist's impression: XR HAND RT COMPLETE CLINICAL HISTORY: ? cut with glass, r/o fx vs fb.? TECHNIQUE:? 2D digital imaging was performed of the right hand. Three images were obtained.? AP, lateral and oblique views were obtained. COMPARISON:? No exams were available for comparison FINDINGS: BONES: No acute fracture is present. No bony destructive lesion is seen. JOINTS: No dislocation present. SOFT TISSUE: Normal. No radiopaque foreign body. IMPRESSION: No acute fracture, dislocation or radiopaque foreign body. HPI General Mode of arrival: ambulatory. Date/Time Provider Initiated Documentation: 06/23/22 12:28. Limitations to Documentation: no limitations. Information obtained by: patient. HPI Narrative: Pt is a 72yo F who presents to the ED with a right hand laceration sustained when she was closing her [employer] feeder and it broke and sliced her palm. She reports her tetanus is up to date. Related Data Home Medications Medication Instructions Recorded Confirmed blood sugar diagnostic (Blood #100 strips 02/12/17 04/30/22 Glucose Test strips) ascorbic acid (vitamin C) 500 mg 500 mg PO DAILY 09/12/19 06/23/22 tablet aspirin 81 mg tablet,delayed 81 mg PO DAILY 09/09/20 06/23/22 release acetaminophen 500 mg tablet 1,000 mg PO Q8H PRN pain #90 tabs 09/24/20 06/23/22 nitroglycerin 0.4 mg sublingual 0.4 mg sublingual ONCE PRN chest 05/14/21 06/23/22 tablet pain #20 tabs chlorthalidone 50 mg tablet 50 mg PO DAILY #90 tabs 08/16/21 06/23/22 metoprolol tartrate 50 mg tablet 50 mg PO BID #180 tabs 11/12/21 06/23/22 sertraline 50 mg tablet (Zoloft) 50 mg PO HS #90 tab-caps 11/12/21 06/23/22 amlodipine 10 mg tablet 10 mg PO DAILY #90 tabs 12/19/21 06/23/22 atorvastatin 80 mg tablet (Lipitor) 80 mg PO DAILY #90 tabs 12/19/21 06/23/22 cyclobenzaprine 5 mg tablet 5 mg PO BID PRN muscle spasm #21 01/03/22 06/23/22 tabs magnesium chloride 71.5 mg 71.5 mg PO BID #180 tabs 01/16/22 06/23/22 (magnesium chloride) tablet,delayed release (Slow-Mag) ropinirole 2 mg tablet 2 mg PO QHS #30 tabs 01/26/22 06/23/22 dapagliflozin 10 mg tablet 10 mg PO DAILY #90 tabs 03/03/22 06/23/22 metformin 1,000 mg tablet 1,500 mg PO QHS #135 tabs 03/18/22 06/23/22 ibuprofen 600 mg tablet 600 mg PO TID PRN fever or pain 04/08/22 06/23/22 #60 tabs ferrous sulfate 325 mg (65 mg 650 mg PO BID #180 tabs 04/23/22 06/23/22 iron) tablet glipizide 10 mg tablet 10 mg PO BID #180 tab-caps 06/16/22 06/23/22 losartan 100 mg tablet 100 mg PO DAILY #90 tabs 06/16/22 06/23/22 cephalexin 500 mg capsule 500 mg PO TID 3 days #9 caps 06/23/22 Previous Rx's Medication Instructions Recorded acetaminophen 500 mg tablet 1,000 mg PO Q8H PRN pain #90 tabs 09/24/20 nitroglycerin 0.4 mg sublingual 0.4 mg sublingual ONCE PRN chest 05/14/21 tablet pain #20 tabs chlorthalidone 50 mg tablet 50 mg PO DAILY #90 tabs 08/16/21 metoprolol tartrate 50 mg tablet 50 mg PO BID #180 tabs 11/12/21 sertraline 50 mg tablet (Zoloft) 50 mg PO HS #90 tab-caps 11/12/21 amlodipine 10 mg tablet 10 mg PO DAILY #90 tabs 12/19/21 atorvastatin 80 mg tablet (Lipitor) 80 mg PO DAILY #90 tabs 12/19/21 cyclobenzaprine 5 mg tablet 5 mg PO BID PRN muscle spasm #21 01/03/22 tabs magnesium chloride 71.5 mg 71.5 mg PO BID #180 tabs 01/16/22 (magnesium chloride) tablet,delayed release (Slow-Mag) ropinirole 2 mg tablet 2 mg PO QHS #30 tabs 01/26/22 dapagliflozin 10 mg tablet 10 mg PO DAILY #90 tabs 03/03/22 metformin 1,000 mg tablet 1,500 mg PO QHS #135 tabs 03/18/22 ibuprofen 600 mg tablet 600 mg PO TID PRN fever or pain 04/08/22 #60 tabs ferrous sulfate 325 mg (65 mg 650 mg PO BID #180 tabs 04/23/22 iron) tablet glipizide 10 mg tablet 10 mg PO BID #180 tab-caps 06/16/22 losartan 100 mg tablet 100 mg PO DAILY #90 tabs 06/16/22 cephalexin 500 mg capsule 500 mg PO TID 3 days #9 caps 06/23/22 Allergies Allergy/AdvReac Type Severity Reaction Status Date / Time hydrochlorothiazide AdvReac Mild GI upset Verified 06/23/22 12:25 lisinopril AdvReac Mild cough Verified 06/23/22 12:25 naproxen AdvReac Mild Itching Verified 06/23/22 12:25 oxycodone HCl [From Percocet] AdvReac Mild n and v Verified 06/23/22 12:25 tetracycline AdvReac Mild G[set Verified 06/23/22 12:25 General Stated Complaint: Laceration SHARRON: 4 Review of Systems All systems reviewed & are unremarkable except as noted in HPI and below Constitutional Constitutional: Reports as per HPI, Denies chills and Denies fever(s) Eyes Eyes: Denies blurry vision ENT Ears, Nose, Mouth, and Throat: Denies dizziness, Denies sore throat and Denies throat swelling Cardiovascular Cardiovascular: Denies chest pain and Denies dyspnea Respiratory Respiratory: Denies cough and Denies dyspnea Gastrointestinal Gastrointestinal: Denies abdominal pain, Denies diarrhea and Denies vomiting Genitourinary Genitourinary: Denies hematuria and Denies dysuria Musculoskeletal Musculoskeletal: Denies back pain and Denies numbness Comments: R hand laceration Integumentary/Breasts Skin/Breast: Denies lesions and Denies rash Neurologic Neurologic: Denies dizziness, Denies localized weakness and Denies numbness Allergic/Immunologic Allergic/Immunologic: Denies throat swelling PFSH All Active Problems (Updated 06/23/22 @ 15:14 by Bell Wilson DO) Laceration of right hand (Acute) Sensorineural hearing loss (SNHL) of both ears (Acute) Impacted cerumen, bilateral (Acute) Essential hypertension (Chronic 10/24/13) Diabetes mellitus (Chronic 04/26/13) Ophtalmo. neg. 07/2016)/no nephro 2016 Hyperlipidemia (Chronic 04/26/13) Depressive disorder (Chronic) Obesity (BMI 30-39.9) (Acute) Trigger finger, right middle finger (Acute) Right carpal tunnel syndrome (Chronic) Carotid stenosis (Chronic) CAD (coronary artery disease) (Chronic) History of tobacco use (Acute) Moderate aortic regurgitation (Chronic 04/09/15) echo. -2015: stable x 03/2015/ -2017:stable Cataracts, both eyes (Chronic 08/24/17) [facility] Medical History Normal vascular exam no lower extremity arterial occlusive disease/ [facility] [place]. 08-25-2018 Primary osteoarthritis of left knee (06/16/18) Injected: 12/14/2019 Sensorineural hearing loss, bilateral (03/18/17) Status post left heart catheterization (LHC) (~08/2018) 2 stents RCA. 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 Stenting x2 Status post total knee replacement, left (06/18/20) Family History Mother , 63 Diabetes Father , 80's Stroke Sister , 65 Neoplasm Sister , 80's Cancer Brother , 60's Heart disease Brother , 78 Diabetes Alcohol abuse Social History Smoking/Tobacco Use Status: Former Tobacco Use tobacco type: cigarettes Quit Date: 11/22/89 Pack-years: 40 Tobacco: How many years used: 20 Second Hand Exposure: Yes Smoking risk assessment performed?: Yes Alcohol Intake: never Drug use: Never Substance use type: does not use Caregiver/Support person: No Household members: none Housing: house Do you need help understanding health information?: Never current occupation: [employer] Pets and animals: No Sexually active: No Do you think of yourself as: straight/heterosexual Current gender identity: female What is your relationship status?: How often do you talk on the phone with friends or family?: three or more times per week How often do you get together with friends or relatives?: three or more times per week How often do you attend mu-ism or scientologist services?: 1-3 times per year Do you belong to any clubs or organized social groups?: no Panel score (0-1 are the most socially isolated patients): 1 What type of physical activity do you participate in: walking Frequency: daily [place]/Oriental Orthodox: Anabaptist Special carolina needs: No Seatbelt use: always Helmet use: No Drive intox or ride w/intox swing driver: No Do you feel safe at home: Yes Additional Social history: Lives alone; daughter is with pt - unable to ask privately Exam Const General: cooperative, healthy appearing and no acute distress Orientation: alert, awake and oriented x3 HENMT Head: normal to inspection Mouth: oral mucosae normal Eyes General: appearance normal, both eyes and all related structures Neck Neck: normal visual inspection Resp Effort & Inspection: normal respiratory effort and able to speak in complete sentences Cardio Rate: regular rate Skin General skin exam: no rashes or lesions noted Neuro General: patient alert, patient awake and patient oriented x3 Motor: muscle tone normal throughout Other: Motor/sensory grossly intact R hand Extrem Hand/finger images: 1. 1.5cm linear laceration noted on palmar aspect. Tiny pieces of thin glass noted around wound. Motor/sensory grossly intact. No bony deformity. Psych Appearance: grossly normal Affect: normal affect Course Vital Signs Vital signs: Vital Signs Temperature 97.9 F 06/23/22 12:22 Pulse 73 06/23/22 12:22 Respiratory Rate 16 06/23/22 12:22 Blood Pressure 150/51 H 06/23/22 12:22 Pulse Oximetry 97 06/23/22 12:22 Temperature 97.9 F 06/23/22 12:22 Temperature Source Temporal Artery Scan 06/23/22 12:22 Pulse 69 06/23/22 13:51 Respiratory Rate 18 06/23/22 13:51 Respiratory Effort Non-Labored 06/23/22 12:24 Blood Pressure 141/77 H 06/23/22 13:51 Blood Pressure Position Sitting 06/23/22 12:22 Pulse Oximetry 97 06/23/22 13:51 Oxygen Delivery Method Room Air 06/23/22 13:51 Oxygen Flow Rate 0 06/23/22 13:51 Pain Level 8 06/23/22 12:22 Procedures Laceration Laceration 1: Site: hand Side (If applicable): right Size (cm): 1.5 Description: linear Depth: simple, single layer Local Anesthetic: Lidocaine 1% Amount of anesthesia used (mL): 4 Pre-repair: wound explored, irrigated extensively and deep structures intact Skin layer closed with: nylon Size (cm): 5-0 Number of sutures: 3 Technique: simple, interrupted
[2022-06-23] MEDS: Cephalexin 500 MG CAP PO (15:18)
== END 2022-06-23 15:24 | disposition home or self-care (01) ==
PROVIDERS: Emergency Provider Physician Assistant
DX: S61.411A Laceration without foreign body of right hand, initial encounter (principal); W26.8XXA Contact with other sharp object(s), not elsewhere classified, initial encounter
CPT/HCPCS: 12001; 99283; 73130

== ENCOUNTER → 2022-10-05 10:40 | Outpatient (BNVA) | payer OTHER, MEDICAID, SELFPAY | PROVIDERS: PCP Nurse Practitioner Family; Referring Provider Nurse Practitioner Family; Visit Provider Internal Medicine Cardiovascular Disease | DX: I25.10 Atherosclerotic heart disease of native coronary artery without angina pectoris (principal); I10 Essential (primary) hypertension; I65.29 Occlusion and stenosis of unspecified carotid artery | CPT/HCPCS: 99214 ==

== ENCOUNTER 2022-11-03 12:22 | Outpatient (REF) | payer MEDICARE, MEDICAID, SELFPAY ==
[2022-11-03 21:20] LABS: HCT 40.9 % (36.0-46.0); HGB 13.6 g/dL (11.2-15.7); MCH 28.8 pg (27.0-33.0); MCHC 33.3 % (32.0-36.0); MCV 87 fL (80-95); MPV 12.1 fL (8.0-11.0); Platelet Count 218 10^3/uL (130-400); RBC 4.73 10^6/uL (3.93-5.22); RDW-SD 40.7 fL; WBC 9.27 10^3/uL (4.4-10.8)
[2022-11-03 21:54] LABS: Hemoglobin A1C 8.1 % (<5.7); TSH (W/Ref FT4) 1.94 uIU/mL (0.36-3.74)
== END 2022-11-03 12:23 | disposition home or self-care (01) ==
LOC: LBN 12:22
PROVIDERS: PCP Nurse Practitioner Family; Visit Provider Nurse Practitioner Family
DX: R53.83 Other fatigue (principal); E11.9 Type 2 diabetes mellitus without complications
CPT/HCPCS: 85027; 83036; 84443

== ENCOUNTER 2023-05-12 02:44 | Outpatient (CLI) | payer MEDICARE, MEDICAID, SELFPAY ==
[2023-05-12 12:25] LABS: HCT 41.7 % (36.0-46.0); HGB 13.5 g/dL (11.2-15.7); MCHC 32.4 % (32.0-36.0); MCV 90 fL (80-95); MPV 12.3 fL (8.0-11.0); Platelet Count 198 10^3/uL (130-400); RBC 4.66 10^6/uL (3.93-5.22); RDW 13.3 % (11.7-14.6); RDW-SD 43.7 fL
[2023-05-12 12:37] LABS: Iron 92 ug/dL (50-170); Total Iron Binding Capacity 265 ug/dL (250-450)
[2023-05-12 12:45] LABS: ALT 30 U/L (14-59); AST 21 U/L (15-37); Albumin 3.7 g/dL (3.4-5.0); Alkaline Phosphatase 88 U/L (46-116); Anion Gap 10.7 mmol/L (3-11); BUN 31 mg/dL (7-18); Bilirubin, Total 0.5 mg/dL (0.2-1.0); CO2 26.3 mmol/L (21.0-32.0); CREATININE 0.9 mg/dL (0.55-1.02); Calcium 9.4 mg/dL (8.5-10.1); Calculated LDL 82 mg/dL (<100); Chloride 107 mmol/L (98-107); Cholesterol 162 mg/dL (<200); Glucose 209 mg/dL (74-106); HDL Cholesterol 47 mg/dL (40-60); Potassium 4.3 mmol/L (3.5-5.1); Sodium 144 mmol/L (136-145); Total Protein 7.4 g/dL (6.4-8.2); Triglyceride 168 mg/dL (<150)
== END 2023-05-12 02:45 | disposition home or self-care (01) ==
LOC: LOS 02:44
PROVIDERS: PCP Nurse Practitioner Family; Visit Provider Nurse Practitioner Family
DX: D50.9 Iron deficiency anemia, unspecified (principal); E78.5 Hyperlipidemia, unspecified; E11.9 Type 2 diabetes mellitus without complications
CPT/HCPCS: 36415; 80053; 80061; 85027; 83540; 83550

== ENCOUNTER → 2023-08-18 01:39 | Outpatient (CLI) | payer MEDICARE, MEDICAID, SELFPAY ==
--- NOTE | 2023-08-18 08:00 | DI.RAD_ITS ---
Exam(s) XR KNEE RT 3V AP,LAT,MADHURI EXAM: XR KNEE RT 3V AP,LAT,MADHURI CLINICAL HISTORY: increasing pain,rt,m25.561. TECHNIQUE: 2D digital imaging was performed of the right knee. Three views obtained. AP, lateral an d PA tunnel views were obtained. COMPARISON: CR XR STANDING ALIGNMENT from 07/08/2020 FINDINGS: BONES: No acute fracture is present. No bony destructive lesion is seen. JOINTS: There is marked narrowing of the medial femoral tibial joint. There are osteophytes involvin g all 3 joint compartments. There is a small joint effusion. SOFT TISSUE: Atherosclerosis. IMPRESSION: Osteoarthritis of the right knee. DATA REPOSITORY: RADIATION DOSE DELIVERED:
== END ==
PROVIDERS: PCP Nurse Practitioner Family; Visit Provider Nurse Practitioner Family
DX: M17.11 Unilateral primary osteoarthritis, right knee (principal)
CPT/HCPCS: 73562

== ENCOUNTER → 2023-09-29 00:29 | Outpatient (CLI) | payer MEDICARE, MEDICAID, SELFPAY ==
--- NOTE | 2023-09-29 07:45 | DI.US_ITS ---
Exam(s) US CAROTID EXAM: US CAROTID CLINICAL HISTORY: Left carotid stenosis,I65.29. TECHNIQUE: Ultrasound carotids performed using grayscale, color-flow, and spectral Doppler imaging. COMPARISON: US US CAROTID from 09/30/2021 FINDINGS: RIGHT CAROTID ARTERY: Plaque: Calcific plaque is seen in the carotid bulb, common carotid artery and proximal and mid ICA. Velocity elevation: None. LEFT CAROTID ARTERY: Plaque: Calcific plaque is seen in the common carotid artery, carotid bulb and proximal and mid inter nal carotid arteries. Velocity elevation: Yes. VERTEBRAL ARTERIES: Antegrade flow. Measurements: R Bulb: 67.9cm/s PS / 10.1cm/s ED R CCA: 61.6cm/s PS / 10.2cm/s ED R ECA: 156.4cm/s PS / 11.7cm/s ED R ICA Prox: 77.1cm/s PS / 15.3cm/s ED R ICA Mid: 59.4cm/s PS / 11cm/s ED R ICA Distal: 59.4cm/s PS /12cm/s ED R Vert: 42cm/s PS / 9.9cm/s ED R SVR: 1.3 R DVR: 1.5 L Bulb: 109.3cm/s PS / 14.4cm/s ED L CCA: 78.3cm/s PS / 10.8cm/s ED L ECA: 78.3cm/s PS / 25.4cm/s ED L ICA Prox: 147.9cm/s PS / 19.4cm/s ED L ICA Mid: 87.4cm/s PS / 14.4cm/s ED L ICA Distal: 116.7cm/s PS / 17.1cm/s ED L Vert: 54.2cm/s PS / 14.3cm/s ED L SVR: 1.9 L DVR: 1.8 IMPRESSION: 1. No hemodynamically significant right internal carotid artery stenosis. 2. 50-69 percent stenosis is seen in the left internal carotid artery proximally. 3. Bilateral atherosclerosis. Criteria for Carotid Stenosis: Normal: ICA PSV <125 cm/s no plaque or intimal thickening is visible. <50% stenosis: ICA PSV <125 cm/s and plaque or intimal thickening is visible. 50-69% stenosis: ICA PSV is 125-250 cm/s and plaque is visible. >70% stenosis to near occlusion: ICA PSV >250 cm/s with visible plaque and luminal narrowing. DATA REPOSITORY:
== END ==
PROVIDERS: PCP Nurse Practitioner Family; Visit Provider Internal Medicine Cardiovascular Disease
DX: I70.223 Atherosclerosis of native arteries of extremities with rest pain, bilateral legs
CPT/HCPCS: 93880

== ENCOUNTER 2023-10-04 08:25 | Outpatient (CLI) | payer MEDICARE, MEDICAID, SELFPAY ==
--- NOTE | 2023-10-04 08:15 | RT.EKG_ITS ---
APPROVED REPORT Exam: Resting ECG Reason for Exam: CAD Patient Location: O HR:68 bpm ECG Measurements Heart Rate 68 AXIS IA 223 P -32 QRSd 90 QRS 23 QT 412 T 32 QTc 439 Conclusion Sinus rhythm...normal P axis, V-rate 50- 99 Prolonged IA interval...IA >220, V-rate 50- 90
== END 2023-10-04 08:26 | disposition home or self-care (01) ==
LOC: DI.CARD 08:26
PROVIDERS: PCP Nurse Practitioner Family; Visit Provider Internal Medicine Cardiovascular Disease
DX: I25.10 Atherosclerotic heart disease of native coronary artery without angina pectoris (principal)
CPT/HCPCS: 93010

== ENCOUNTER → 2023-10-04 10:45 | Outpatient (BNVA) | payer MEDICARE, MEDICAID, SELFPAY | PROVIDERS: PCP Nurse Practitioner Family; Visit Provider Internal Medicine Cardiovascular Disease | DX: I65.22 Occlusion and stenosis of left carotid artery (principal); I25.10 Atherosclerotic heart disease of native coronary artery without angina pectoris | CPT/HCPCS: 93005; 99213 ==

== ENCOUNTER 2023-11-29 04:20 | Outpatient (CLI) | payer MEDICARE, MEDICAID, SELFPAY ==
[2023-11-29 13:26] LABS: Hemoglobin A1C 6.6 % (<5.7)
[2023-11-29 13:32] LABS: ALT 34 U/L (14-59); AST 16 U/L (15-37); Albumin 3.7 g/dL (3.4-5.0); Alkaline Phosphatase 71 U/L (46-116); BUN 27 mg/dL (7-18); Bilirubin, Total 0.4 mg/dL (0.2-1.0); Calcium 9.3 mg/dL (8.5-10.1); Calculated LDL 72 mg/dL (<100); Chloride 107 mmol/L (98-107); Cholesterol 152 mg/dL (<200); Estimated GFR 59.12 (mL/min/1.73m2); Glucose 153 mg/dL (74-106); HDL Cholesterol 50 mg/dL (40-60); Potassium 4.2 mmol/L (3.5-5.1); Sodium 140 mmol/L (136-145); Total Protein 7.3 g/dL (6.4-8.2); Triglyceride 153 mg/dL (<150)
== END 2023-11-29 04:21 | disposition home or self-care (01) ==
LOC: LOS 04:21
PROVIDERS: PCP Nurse Practitioner Family; Visit Provider Nurse Practitioner Family
DX: E11.9 Type 2 diabetes mellitus without complications (principal); E78.5 Hyperlipidemia, unspecified
CPT/HCPCS: 36415; 80053; 80061; 83036

== ENCOUNTER → 2023-12-15 01:47 | Outpatient (CLI) | payer MEDICARE, MEDICAID, SELFPAY ==
--- NOTE | 2023-12-15 09:51 | DI.RAD_ITS ---
Exam(s) XR SHOULDER RT COMPLETE 2+V EXAM: XR SHOULDER RT COMPLETE 2+V CLINICAL HISTORY: worsening shoulder pain and decreased range of motion,m25.511. TECHNIQUE: 2D digital imaging was performed. Five views. COMPARISON: No exams were available for comparison FINDINGS: BONES: No acute fracture is present. No bony destructive lesion is seen. Spurring at tip of acromion . Spurring at greater tuberosity. JOINTS: No dislocation present. Mild degenerative changes AC joint. Mild spurring at glenoid. Fredi oid humeral joint space is maintained. SOFT TISSUE: Normal. IMPRESSION: Mild degenerative changes. DATA REPOSITORY: RADIATION DOSE DELIVERED:
== END ==
PROVIDERS: PCP Nurse Practitioner Family; Visit Provider Nurse Practitioner Family
DX: M25.511 Pain in right shoulder (principal)
CPT/HCPCS: 73030

== ENCOUNTER 2024-09-13 09:18 | Outpatient (REF) | payer MEDICARE, MEDICAID, SELFPAY ==
--- OUTSIDE RECORDS SUMMARY | 2024-09-13 09:21 | XMS_ITS | Encounter Summary ---
Author Organization [facility] Address [facility] [place] [address] Care Team Providers Care Underwriting Service Representative Name Role Phone Rosi Bower MD Primary Care Provider [phone] Encounter Details Date Type Department Care Team (Latest Contact Info) Description 09/20/2020 5:44 PM EDT - 09/20/2020 11:59 PM EDT Hospital [place] [id number] Discharge Disposition: Home Social History Tobacco Use Types Packs/Day Years Used Date Smoking Tobacco: Former Smokeless Tobacco: Never Sex and Gender Information Value Date Recorded Sex Assigned at Not on file Gender Identity Not on file Sexual Orientation Not on file documented as of this encounter Medications at Time of Discharge Medication Sig Dispensed Refills Start Date End Date chlorthalidone (HYGROTEN) 25 mg Tablet Take 25 mg by mouth daily. 08/15/2018 glipiZIDE (GLUCOTROL) 10 mg Tablet Take 10 mg by mouth daily. 08/15/2018 rOPINIRole (REQUIP) 0.5 mg Tablet Take 0.5 mg by mouth daily. 08/22/2018 sertraline (ZOLOFT) 50 mg Tablet Take 50 mg by mouth daily. 08/15/2018 aspirin 81 mg Tablet, Delayed Release (E.C.) Take 81 mg by mouth daily. metFORMIN (GLUCOPHAGE) 1,000 mg tablet 1000MG = 1 Tablet(s), PO, Twice daily 01/03/2007 amlodipine (NORVASC) 10 mg tablet 5MG = 1/2 Tablet(s), PO, Once daily 12/16/2006 losartan (COZAAR) 100 mg tablet 100mg, PO, Once daily 06/14/2006 simvastatin (ZOCOR) 40 mg tablet 40MG = 1 Tablet(s), PO, QHS 06/14/2006 CIS Free Text Med - Quinine Sulfate 02/18/2006 pantoprazole (PROTONIX) 40 mg tablet 40mg, PO, Once daily 02/18/2006 documented as of this encounter Plan of Treatment Not on file documented as of this encounter Procedures Procedure Name Priority Date/Time Associated Diagnosis Comments COVID-19 PCR Routine 09/20/2020 10:27 AM EDT documented in this encounter Results * COVID-19 PCR (09/20/2020 10:27 AM EDT) SARS-CoV-2 RNA Not Detected Not Detected [facility] Comment: This result should be interpreted in combination with the clinical observations, patient history and epidemiological information in making a final diagnosis. For testing of asymptomatic individuals, assay performance characteristics and clinical utility have not been evaluated. Testing for SARS-CoV-2 (Severe acute respiratory syndrome coronavirus 2, formerly known as 2019 novel coronavirus or 2019-nCoV) to aid in the diagnosis of COVID-19 is performed using the [employer] Real[employer] SARS-CoV-2 Assay as authorized by the FDA Emergency Use Authorization (EUA). This EUA assay is intended for In-vitro Diagnostic (IVD) use with respiratory specimens such as nasopharyngeal swabs collected from individuals during the acute phase of infection. This assay is performed based on the instructions for use provided by [employer] and additional guidance provided by CDC and FDA. Testing is performed in the [facility] within the Department of Pathology and Laboratory Medicine at [facility], certified under the Clinical Laboratory Improvement Amendments of 1988 (CLIA), 42 U.S.C. 263a, to perform high complexity tests. Assay performance has been verified according to clinical laboratory regulatory requirements for use with specimens collected from individuals suspected of COVID-19. Test results are provided above. A result of ? Not Detected? indicates that the viral RNA target is not present above the limit of detection, but does not preclude SARS-CoV-2 infection. False negative results may occur if a specimen is improperly collected, transported or handled; if amplification inhibitors are present; or if inadequate numbers of viral particles are present in the specimen. When a diagnostic test is negative, the possibility of a false negative result should be considered in the context of a patient? s recent exposures and the presence of clinical signs and symptoms consistent with COVID-19. A result of ? Detected? indicates that RNA from SARS-CoV-2 was detected and the patient is infected. As required or requested by public health authorities, positive specimens may be sent for additional testing. Positive and negative predictive values for this test are highly dependent on disease prevalence. A result of ? Invalid? indicates that neither the viral RNA targets nor the internal control target was detected. An invalid result suggests the presence of inhibitors. Recollection and re-testing is recommended in the case of an invalid result. CDC COVID-19 criteria for testing on human specimens and clinical management guidance information are available at the CDC Coronavirus Disease 2019 (COVID-19) webpage under ? Information for Healthcare Professionals? (https://www.cdc.gov/coronavirus/2019-ncov/hcp/index.html) Additional information about this and other EUA tests can be found in provider and patient fact sheets at the following FDA website: https://www.fda.gov/medical-devices/lamzaoewhqp-bjxjcbj-7327-jcevr-49-onqsmdnyz- use-a srnbhzrptwzaj-smihaep-tcwdyli/xgrol-ttsuqhiopqc-srkx SARS-CoV-2 RNA Source Nasal [facility] Specimen from nose (specimen) Other / Unknown 09/20/2020 10:27 AM EDT 09/20/2020 11:21 PM EDT Narrative Resulting Agency Comment Spec In Lab Dharmesh Edmondson MD MOLECULAR ORDERABL ES [facility] [place] [place] [address] documented in this encounter Visit Diagnoses Not on filedocumented in this encounter Care Teams Underwriting Service Representative Relationship Specialty Start Date End Date Rosi Bower MD [address] [place] [address] PCP - General Family Medicine 08/25/18 documented as of this encounter
--- OUTSIDE RECORDS SUMMARY | 2024-09-13 09:21 | XMS_ITS | Encounter Summary ---
Author Organization [facility] [place] [address] Care Team Providers Care Python Consultant Name Role Phone Rosi Bower MD Primary Care Provider [phone] Reason for Visit * Consultation (Routine) - Specialty Diagnoses / Procedures Referred By Suzy dumont Referred To Contact Vascular Surgery Diagnoses Peripheral vascular disease, unspecified CLAUDICATION LOWER EXTREMITIES Rosi Bower MD [address] [place] [address] [facility] [address] [place] [address] Referral ID Status Reason Start Date Expiration Date V isits Requested Visits Authorized [id number] Consult, Test [facility] Treat Connection Center PCP Updated and/or Approved 08/21/2018 02/18/2019 6 6 Encounter Details Date Type Department Care Team (Latest Contact Info) Description 08/25/2018 12:25 PM EDT - 08/25/2018 11:59 PM EDT Hospital Encounter [place] [phone] [place], [place] Intermittent claudication Discharge Disposition: Home Social History Tobacco Use [...] Procedure Name Priority Date/Time Associated Diagnosis Comments QUE, LEGS, MULTIPLE LEVELS Routine 08/25/2018 12:35 PM EDT Intermittent claudication documented in this encounter Results * QUE, legs, multiple levels (08/25/2018 12:35 PM EDT) VB Text Report Department: Vascular Surgery Lab Patient: [id number] (MARY SANABRIA) CPT: 22536 ICD10: I73.9 Referring Physician: BERENICE TIERNEY ?? Indications: Patient with bilateral lower extremity claudication, ? PVD Diabetes mellitus: Yes ICD10 Diagnosis Code: I73.9 Findings: Right ?Pressure (mm Hg) ?? QUE ??Waveform ?TBI ?? Brachial Artery ?131 ? Common Femoral Artery ?Triphasic ? Popliteal Artery ? Triphasic ? Dorsalis Pedis (Ankle) Artery ?141 ? 1.04 ??Triphasic ? Posterior Tibial (Ankle) Artery ??163 ? 1.20 ??Triphasic ? Great Toe ?119 ?0.88 ?? Left ? Pressure (mm Hg) ?? QUE ??Waveform ?TBI ?? Brachial Artery ?136 ? Common Femoral Artery ?Triphasic ? Popliteal Artery ? Biphasic ? Dorsalis Pedis (Ankle) Artery ?133 ? 0.98 ??Triphasic ? Posterior Tibial (Ankle) Artery ??141 ? 1.04 ??Triphasic ? Great Toe ?110 ?0.81 ?? Interpretation: RIGHT: No significant lower extremity arterial occlusive disease. Normal ankle/brachial pressure ratios, ankle Doppler waveforms and toe pressures. LEFT: No significant lower extremity arterial occlusive disease. Normal ankle/brachial pressure ratios, ankle Doppler waveforms and toe pressures. Comparison: ??No previous study in our vascular lab database for comparison. Electronically Signed by: SYLVIE PEARSON on 2018-08-30 02:44:25 PM [facility] VB Text Report End of Report [facility] 08/25/2018 12:3 5 PM EDT Berenice Tierney MD VASCULAR ORDERABLES [facility] documented in this encounter Visit Diagnoses Diagnosis Intermittent claudication Peripheral vascular disease, unspecified documented in this encounter Care Teams Python Consultant Relationship Specialty Start Date End Date Rosi Bower MD [address] [place] [address] PCP - General Family Medicine 08/25/18 documented as of this encounter
--- OUTSIDE RECORDS SUMMARY | 2024-09-13 09:21 | XMS_ITS | Encounter Summary ---
Author Organization [facility] [place] [address] Care Team Providers Care Lure Maker Name Role Phone Mateo Waite DO Primary Care Provider [phone] Reason for Visit * Reason Onset Date Comments Other 08/18/2018 Encounter Details Date Type Department Care Team (Late st Contact Info) Description 08/18/2018 Telephone [place] [phone] Anne Knox Other Social History Tobacco Use Types Packs/Day Years Used Date Smoking Tobacco: Never Assessed Sex and Gender Information Value Date Recorded Sex Assigned at Not on file Gender Identity Not on file Sexual Orientation Not on file documented as of this encounter Miscellaneous Notes * Telephone Encounter - Anne Ceballos - 08/18/2018 11:54 AM EDT Unable to leave message phone has been disconnected and no other number on file. LM with RMD's office to see if they have another number to call. documented in this encounter Plan of Treatment Not on file documented as of this encounter Visit Diagnoses Not on filedocumented in this encounter Care Teams Lure Maker Relationship Specialty Start Date End Date Mateo Waite, [address] [place] [address] PCP - General 10/14/10 08/24/18 documented as of this encounter
--- OUTSIDE RECORDS SUMMARY | 2024-09-13 09:21 | XMS_ITS | Encounter Summary ---
Author Organization [facility] Address [facility] [place] [address] Care Team Providers Care Unix Systems Administrator Name Role Phone Mateo Waite DO Primary Care Provider [phone] Encounter Details Date Type Department Care Team (Late st Contact Info) Description 08/16/2018 Orders [place] [address] Mackenzie Leung CMA Intermittent claudication Social History Tobacco Use Types Packs/Day Years Used Date Smoking Tobacco: Never Assessed Sex and Gender Information Value Date Recorded Sex Assigned at Not on file Gender Identity Not on file Sexual Orientation Not on file documented as of this encounter Plan of Treatment Not on file documented as of this encounter Results * QUE, legs, multiple levels (08/25/2018 12:35 PM EDT) VB Text Report Department: Vascular Surgery Lab Patient: [id number] (ZHENMARY) CPT: 52847 ICD10: I73.9 Referring Physician: BERENICE TIERNEY ?? [...] unspecified documented in this encounter Care Teams Unix Systems Administrator Relationship Specialty Start Date End Date Mateo Waite, [address] [place] [address] PCP - General 10/14/10 08/24/18 documented as of this encounter
--- OUTSIDE RECORDS SUMMARY | 2024-09-13 09:21 | XMS_ITS | Encounter Summary ---
[facility] [place] [address] Care Team Providers Care Software Test Specialist Name Role Phone Mateo Waite DO Primary Care Provider [phone]- [phone] Reason for Visit * Reason Onset Date Comments Other 08/19/2018 Encounter Details Date Type Department Care Team (Late st Contact Info) Description 08/19/2018 Telephone [place] [phone] Anne Knox Other Social History Tobacco Use Types Packs/Day Years Used Date Smoking Tobacco: Never Assessed Sex and Gender Information Value Date Recorded Sex Assigned at Not on file Gender Identity Not on file Sexual Orientation Not on file documented as of this encounter Miscellaneous Notes * Telephone Encounter - Anne Ceballos - 08/19/2018 8:47 AM EDT Unable to reach patient due to phone being disconnected, LM with RMD's office to call if they have another number to reach patient. Letter sent. Referral deferred RMD notified. 08/19/18 HH QUE's w/toes, 1 month, any provider documented in this encounter Plan of Treatment Not on file documented as of this encounter Visit Diagnoses Not on filedocumented in this encounter Care Teams Software Test Specialist Relationship Specialty Start Date End Date Mateo Waite, DO [address] [place] [address] PCP - General 10/14/10 08/24/18 documented as of this encounter
--- OUTSIDE RECORDS SUMMARY | 2024-09-13 09:21 | XMS_ITS | Encounter Summary ---
Author Organization [facility] Address [facility] [place] [address] Care Team Providers Care Solderer Production Line Name Role Phone Rosi Bower MD Primary Care Provider [phone] Reason for Visit * Reason Comments Claudication pt states leg fatigu e on ambulation * Consultation (Routine) - Specialty Diagnoses / Procedures Referred By Contac t Referred To Contact Vascular Surgery Diagnoses Peripheral vascular disease, unspecified CLAUDICATION LOWER EXTREMITIES Rosi Bower MD [address] [place] [address] [address] [facility] [address] [place] [address] [facility] [address] [place] [address] Referral ID Status Reason Start Date Expiration Date V isits Requested Visits Authorized [id number] Consult, Test & Treat Connection Center PCP Updated and/or Approved 08/21/2018 02/18/2019 6 6 Encounter Details Date Type Department Care Team (Late st Contact Info) Description 08/25/2018 2:30 PM EDT Office Visit [place] [address] Jose Antonio Pelayo MD [facility] [place] [address] Intermittent claudication Social History Tobacco Use Types Packs/Day Years Used Date Smoking Tobacco: Former Smokeless Tobacco: Never Sex and Gender Information Value Date Recorded Sex Assigned at Not on file Gender Identity Not on file Sexual Orientation Not on file documented as of this encounter Last Filed Vital Signs Vital Sign Reading Time Taken Comments Blood Pressure 147/46 08/25/2018 2:48 PM EDT Pulse 81 08/25/2018 2:48 PM EDT Temperature - - Respiratory Rate 18 08/25/2018 2:48 PM EDT Oxygen Saturation - - Inhaled Oxygen Concentration - - Weight 75.3 kg (166 lb) 08/25/2018 2:48 PM EDT Height 157.5 cm (5' 2) 08/25/2018 2:48 PM EDT Body Mass Index 30.36 08/25/2018 2:48 PM EDT documented in this encounter Progress Notes * Jose Antonio Pelayo MD - 08/25/2018 2:30 PM EDT OUTPATIENT VASCULAR SURGERY CONSULTATION Reason for Visit: Leg pain with walking History of Present Illness: This is a 68 y.o. female who presents with a history of bilateral lower extremity leg heaviness with ambulation. If she slows down her pace of walking the heaviness resolves. She denies any cramping.It does not stop her from walking. She denies any rest pain or tissue loss. She does have a historyof diabetes. She also has remote history of smoking she smoked 2 packs a day but quit in 1988. reports that she has quit smoking. She has never used smokeless tobacco. Patient Active Problem List Diagnosis Code ??? Intermittent claudication I73.9 Current Outpatient Prescriptions: ??? chlorthalidone (HYGROTEN) 25 mg Tablet, Take 25 mg by mouth daily., Disp: , Rfl: ??? glipiZIDE (GLUCOTROL) 10 mg Tablet, Take 10 mg by mouth daily., Disp: , Rfl: ??? rOPINIRole (REQUIP) 0.5 mg Tablet, Take 0.5 mg by mouth daily., Disp: , Rfl: ??? sertraline (ZOLOFT) 50 mg Tablet, Take 50 mg by mouth daily., Disp: , Rfl: ??? aspirin 81 mg Tablet, Delayed Release (E.C.), Take 81 mg by mouth daily., Disp: , Rfl: ??? metFORMIN (GLUCOPHAGE) 1,000 mg tablet, 1000MG = 1 Tablet(s), PO, Twice daily, Disp: , Rfl: ??? amlodipine (NORVASC) 10 mg tablet, 5MG = 1/2 Tablet(s), PO, Once daily, Disp: , Rfl: ??? losartan (COZAAR) 100 mg tablet, 100mg, PO, Once daily, Disp: , Rfl: ??? simvastatin (ZOCOR) 40 mg tablet, 40MG = 1 Tablet(s), PO, QHS, Disp: , Rfl: ??? CIS Free Text Med - Quinine Sulfate, , Disp: , Rfl: ??? pantoprazole (PROTONIX) 40 mg tablet, 40mg, PO, Once daily, Disp: , Rfl: Allergies Allergen Reactions ??? Hydrochlorothiazide ??? Sulfa (Sulfonamide Antibiotics) Review of Systems: Constitutional (weight change, fever) - Denies Neuro (dizziness, seizures, numbness, tingling) - Denies Eyes (vision) - Denies Ears, nose, throat (hearing) - Denies Cardiovascular (CP) - Denies Respiratory (SOB) - Denies GI (abd pain, nausea, emesis, blood in stool) - Denies (hematuria, dysuria, frequency) - Denies Muscoloskeletal (extremity pain, weakness) - Denies Skin (ulcers, rashes) - Denies Functional Status/Social Hx: Family Hx: Negative for Thrombosis, Bleeding Disorders Physical Exam: BP 147/46 (BP Location (NBP): Left arm, Patient Position: Sitting) Pulse 81 Resp 18 Ht 157.5 cm (5' 2) Wt 75.3 kg (166 lb) BMI 30.36 kg/m2 General - NAD, appears stated age Neuro - Alert and Oriented, Motor Sensory grossly intact Skin - No prominent markings or lesions Ear, Nose, Throat - No masses, No lesions Cardiac - RRR, no murmurs Lungs - Clear Abd - Soft, NT, ND, No palpable pulsatile masses Musculoskeletal- full ROM upper and lower extremities Psych- alert oriented X3 , Extremities - Warm, pink, no edema, brisk capillary refill Vascular Exam: R L Carotid 2/2 bruit () 2/2 bruit () Radial 2/2 2/2 Femoral 2/2 2/2 Popliteal DP 2/2 2/2 PT 0/2 0/2 Labs: Recent Results (from the past 72 hour(s)) QUE, legs, multiple levels Result Value Ref Range VB Text Report Department: Vascular Surgery Lab Patient: [id number] (ZHENMARY) CPT: 68723 ICD10: I73.9 Referring Physician: BERENICE TIERNEY Indications: Patient with bilateral lower extremity claudication, ? PVD Diabetes mellitus: Yes ICD10 Diagnosis Code: I73.9 Findings: Right Pressure (mm Hg) QUE Waveform TBI Brachial Artery 131 Common Femoral Artery Triphasic Popliteal Artery Triphasic Dorsalis Pedis (Ankle) Artery 141 1.04 Triphasic Posterior Tibial (Ankle) Artery 163 1.20 Triphasic Great Toe 119 0.88 Left Pressure (mm Hg) QUE Waveform TBI Brachial Artery 136 Common Femoral Artery Triphasic Popliteal Artery Biphasic Dorsalis Pedis (Ankle) Artery 133 0.98 Triphasic Posterior Tibial (Ankle) Artery 141 1.04 Triphasic Great Toe 110 0.81 Interpretation: RIGHT: No significant lower extremity arterial occlusive disease. Normal ankle/brachial pressure ratios, ankle Doppler waveforms and toe pressures. LEFT: No significant lower extremity arterial occlusive disease. Normal ankle/brachial pressure ratios, ankle Doppler waveforms and toe pressures. Comparison: No previous study in our vascular lab database for comparison. VB Text Report End of Report Studies: No flowsheet data found. Assessment and Plan: The patient complains of bilateral leg tiredness with ambulation. I do not believe this is claudication. The patient has normal pulse exam as well as normal ankle-brachial indices. It is unclear as the etiology of the heavy sensation the patient is perceived in her legs with walking. I do not believe it is vascular in origin. I will see her on an as-needed basis. documented in this encounter Plan of Treatment Not on file documented as of this encounter Visit Diagnoses Diagnosis Intermittent claudication Peripheral vascular disease, unspecified documented in this encounter Care Teams Solderer Production Line Relationship Specialty Start Date End Date Rosi Bower MD [address] [place] [address] PCP - General Family Medicine 08/25/18 documented as of this encounter
--- OUTSIDE RECORDS SUMMARY | 2024-09-13 09:21 | XMS_ITS | Clinical Summary ---
Author Organization [facility] Address [facility] [place] [address] Care Team Providers Care Water Meter Reader Name Role Phone Rosi Bower MD Primary Care Provider [phone] Allergies Active Allergy Reactions Criticality Noted Date Comments Hydrochlorothiazide Sulfa (Sulfonamide Antibiotics) Medications Medication Sig Dispensed Refills Start Date End Date Status CIS Free Text Med - Quinine Sulfate 02/18/2006 Active metFORMIN (GLUCOPHAGE) 1,000 mg tablet 1000MG = 1 Tablet(s), PO, Twice daily 01/03/2007 Active pantoprazole (PROTONIX) 40 mg tablet 40mg, PO, Once daily 02/18/2006 Active losartan (COZAAR) 100 mg tablet 100mg, PO, Once daily 06/14/2006 Active simvastatin (ZOCOR) 40 mg tablet 40MG = 1 Tablet(s), PO, QHS 06/14/2006 Active amlodipine (NORVASC) 10 mg tablet 5MG = 1/2 Tablet(s), PO, Once daily 12/16/2006 Active chlorthalidone (HYGROTEN) 25 mg Tablet Take 25 mg by mouth daily. 08/15/2018 Active glipiZIDE (GLUCOTROL) 10 mg Tablet Take 10 mg by mouth daily. 08/15/2018 Active rOPINIRole (REQUIP) 0.5 mg Tablet Take 0.5 mg by mouth daily. 08/22/2018 Active sertraline (ZOLOFT) 50 mg Tablet Take 50 mg by mouth daily. 08/15/2018 Active aspirin 81 mg Tablet, Delayed Release (E.C.) Take 81 mg by mouth daily. Active Active Problems Problem Noted Date Diagnosed Date Intermittent claudication 08/16/2018 Immunizations Name Administration Dates Next Due Influenza Vaccine, Whole 09/15/2006,09/23/2005 Pneumococcal 23-Valent Polysaccharide (Pneumovax 23) 11/22/1990 Td Adult (not absorbed) 11/22/1999 Social History Tobacco Use Types Packs/Day Years Used Date Smoking Tobacco: Former Smokeless Tobacco: Never Sex and Gender Information Value Date Recorded Sex Assigned at Not on file Gender Identity Not on file Sexual Orientation Not on file Last Filed Vital Signs Vital Sign Reading [...] Mass Index 30.36 08/25/2018 2:48 PM EDT Plan of Treatment Health Maintenance Due Date Last Done Comments CT Colonography 1949 Colonoscopy 1949 Colorectal Cancer Screening 1950 FIT DNA 1949 FIT 1949 Sigmoidoscopy (10 year) with FIT yearly 1949 Sigmoidoscopy 1949 Hepatitis C Screening 1967 Zoster vaccine (1 of 2) 1999 Tetanus/Diphtheria/Pertussis Vaccines (1 - Tdap) 11/23/1999 11/22/1999 Advance Directive 2004 Bone Density Scan 2014 Pneumoccocal Vaccine: 65+ (2 of 2 - PCV) 2014 11/22/1990 Covid-19 Vaccine (1 - season) 2024 Influenza (Flu) vaccine (1 o f 1 - Influenza standard series) 07/23/2024 09/15/2006, 09/23/2005 Care Teams Water Meter Reader Relationship Specialty Start Date End Date Rosi Bower MD [address] [place], [place] [id number] PCP - General Family Medicine 08/25/18
[2024-09-13 12:13] LABS: HCT 44.8 % (36.0-46.0); HGB 14.6 g/dL (11.2-15.7); MCH 29.1 pg (27.0-33.0); MCHC 32.6 % (32.0-36.0); MCV 89 fL (80-95); MPV 12.3 fL (8.0-11.0); Platelet Count 227 10^3/uL (130-400); RBC 5.02 10^6/uL (3.93-5.22); RDW 13.7 % (11.7-14.6); RDW-SD 44.9 fL; WBC 8.56 10^3/uL (4.4-10.8)
[2024-09-13 13:16] LABS: Hemoglobin A1C 6.8 % (<5.7)
[2024-09-13 13:21] LABS: Iron 101 ug/dL (50-170)
[2024-09-13 13:26] LABS: ALT 45 U/L (14-59); AST 28 U/L (15-37); Albumin 3.8 g/dL (3.4-5.0); Alkaline Phosphatase 97 U/L (46-116); Anion Gap 12.9 mmol/L (3-11); BUN 22 mg/dL (7-18); Bilirubin, Total 0.48 mg/dL (0.2-1.0); CO2 23.1 mmol/L (21.0-32.0); Calcium 9.6 mg/dL (8.5-10.1); Calculated LDL 62 mg/dL (<100); Chloride 108 mmol/L (98-107); Cholesterol 151 mg/dL (<200); Estimated GFR 58.75 (mL/min/1.73m2); Ferritin 393 ng/mL (8-252); Glucose 166 mg/dL (74-106); HDL Cholesterol 44 mg/dL (40-60); Magnesium 1.4 mg/dL (1.8-2.4); Potassium 3.9 mmol/L (3.5-5.1); Sodium 144 mmol/L (136-145); Total Protein 7.2 g/dL (6.4-8.2); Triglyceride 225 mg/dL (<150)
== END 2024-09-13 09:19 | disposition home or self-care (01) ==
LOC: LBN 09:18
PROVIDERS: PCP Nurse Practitioner Family; Visit Provider Nurse Practitioner Family
DX: D50.8 Other iron deficiency anemias (principal); E11.9 Type 2 diabetes mellitus without complications; E78.5 Hyperlipidemia, unspecified; G25.81 Restless legs syndrome; Z01.30 Encounter for examination of blood pressure without abnormal findings
CPT/HCPCS: 80053; 80061; 85027; 82728; 83036; 83540; 83735

== ENCOUNTER → 2024-10-02 10:38 | Outpatient (BNVA) | payer MEDICARE, MEDICAID, SELFPAY | PROVIDERS: PCP Nurse Practitioner Family; Visit Provider Internal Medicine Cardiovascular Disease | DX: I65.22 Occlusion and stenosis of left carotid artery (principal); I25.10 Atherosclerotic heart disease of native coronary artery without angina pectoris | CPT/HCPCS: 99213 ==

== ENCOUNTER 2024-12-15 23:39 | Inpatient (IN) | payer MEDICARE, SELFPAY ==
--- NOTE | 2024-12-15 00:05 | DI.RAD_ITS ---
Exam(s) XR PORTABLE CHEST AP EXAM: XR PORTABLE CHEST AP CLINICAL HISTORY: Chest pain. TECHNIQUE: 2D digital imaging was performed. COMPARISON: No exams were available for comparison FINDINGS: Single AP portable view. Heart size is upper normal. The mediastinum is not widened. Lungs are clear. No infiltrates nor obvious pleural effusions. IMPRESSION: No acute pulmonary findings on this single AP portable view of the chest. DATA REPOSITORY: RADIATION DOSE DELIVERED:
--- NOTE | 2024-12-15 23:30 | RT.EKG_ITS ---
APPROVED REPORT Exam: Resting ECG Reason for Exam: chest pain Patient Location: E HR:91 bpm ECG Measurements Heart Rate 91 AXIS ME 201 P 24 QRSd 85 QRS 28 QT 373 T 74 QTc 458 Conclusion Sinus rhythm...normal P axis, V-rate 60- 99 Inferior infarct, old...Q >35mS, II III aVF no STEMI
[2024-12-15 23:41] VITALS: BP 171/56; PULSE 93; RESP 16; TEMP 36.8; O2SAT 95
[2024-12-15 23:44] VITALS: PULSE 92; RESP 20; O2SAT 97
[2024-12-15 23:45] VITALS: BP 171/56; PULSE 90; PULSE 91; RESP 14; O2SAT 99
--- OUTSIDE RECORDS SUMMARY | 2024-12-15 23:45 | XMS_ITS | Encounter Summary ---
Author Organization [facility] [place] [address] Care Team Providers Care Customer Services Coordinator Name Role Phone Mateo Waite DO Primary Care Provider [phone] Reason for Visit * Reason Onset Date Comments Other 08/18/2018 Encounter Details Date Type Department Care Team (Late st Contact Info) Description 08/18/2018 Telephone [place] [id number] Anne Knox Other Social History Tobacco Use [...] on filedocumented in this encounter Care Teams Customer Services Coordinator Relationship Specialty Start Date End Date Mateo Waite, [address] [place] [address] PCP - General 10/14/10 08/24/18 documented as of this encounter
--- OUTSIDE RECORDS SUMMARY | 2024-12-15 23:45 | XMS_ITS | Encounter Summary ---
Author Organization [facility] [place] [address] Care Team Providers Care Locum Tenens Name Role Phone Rosi Bower MD Primary Care Provider [phone] Reason for Visit * Consultation (Routine) - Specialty Diagnoses / Procedures Referred By Suzy dumont Referred To Contact Vascular Surgery Diagnoses Peripheral vascular disease, unspecified CLAUDICATION LOWER EXTREMITIES Rosi Bower MD [address] [place] [address] [facility] [address] [place] [address] Referral ID Status Reason Start Date Expiration Date V isits Requested Visits Authorized [id number] Consult, Test [facility] Treat Connection [facility] PCP Updated and/or Approved 08/21/2018 02/18/2019 6 6 Encounter Details Date Type Department Care Team (Latest Contact Info) Description 08/25/2018 12:25 PM EDT - 08/25/2018 11:59 PM EDT Hospital Encounter [place] [id number] [place], [place] Intermittent claudication Discharge Disposition: Home Social [...] Text Report Department: Vascular Surgery Lab Patient: [id number] (MARY SANABRIA) CPT: 08287 ICD10: I73.9 Referring Physician: BERENICE TIERNEY ?? [...] unspecified documented in this encounter Care Teams Locum Tenens Relationship Specialty Start Date End Date Rosi Bower MD [address] [place] [address] PCP - General Family Medicine 08/25/18 11/30/24 documented as of this encounter
--- OUTSIDE RECORDS SUMMARY | 2024-12-15 23:45 | XMS_ITS | Clinical Summary ---
Author Organization [facility] Address [facility] [place] [address] Care Team Providers Care Teletypesetter Monitor Name Role Phone None Primary Care Provider Unavailabl e Allergies Active Allergy Reactions Criticality Noted Date [...] 1950 Sigmoidoscopy 1949 Hepatitis C Screening 1967 Pneumoccocal Vaccine: 50+ (2 of 2 - PCV) 1999 11/22/1990 Zoster vaccine (1 of 2) 1999 Tetanus/Diphtheria/Pertussis Vaccines (1 - Tdap) 11/23/1999 11/22/1999 Advance Directive 2004 Bone Density Scan 2014 RSV Vaccine (1 - 1-dose 75+ series) 2024 Covid-19 Vaccine (1 - season) 2024 Influenza (Flu) vaccine (1 o f 1 - Influenza standard series) 07/23/2024 09/15/2006, 09/23/2005 Care Teams Teletypesetter Monitor Relationship Specialty Start Date End Date None None PCP - General 12/01/24
--- OUTSIDE RECORDS SUMMARY | 2024-12-15 23:45 | XMS_ITS | Encounter Summary ---
Author Organization [facility] Address [facility] [place] [address] Care Team Providers Care Certified Travel Counselor Name Role Phone Rosi Bower MD Primary Care Provider [phone] Encounter Details Date Type Department Care Team (Latest Contact Info) Description 09/20/2020 5:44 PM EDT - 09/20/2020 11:59 PM EDT Hospital [place] [id number] Discharge Disposition: Home Social History Tobacco Use [...] EDT) SARS-CoV-2 RNA Not Detected Not Detected [facility] Comment: This result should be interpreted [...] on the instructions for use provided by [facility] and additional guidance provided by CDC and FDA. Testing is performed in the [facility] within the Department of Pathology and Laboratory Medicine at [facility], certified under the Clinical Laboratory [...] fact sheets at the following FDA website: https://www.fda.gov/medical-devices/vjbyywpbvka-qhjuham-9306-blfog-08-cgllkmnlq- use-a gtpcshzgkmhky-ektznsx-lghvyqx/owwiq-ptngpfwvubh-tecm SARS-CoV-2 RNA Source Nasal [facility] Specimen from nose (specimen) Other / Unknown 09/20/2020 10:27 AM EDT 09/20/2020 11:21 PM EDT Narrative Resulting Agency Comment Spec In Lab Dharmesh Edmondson MD MOLECULAR ORDERABL ES [facility] [place] [address] documented in this encounter Visit Diagnoses Not on filedocumented in this encounter Care Teams Certified Travel Counselor Relationship Specialty Start Date End Date Rosi Bower MD [address] [place] [address] PCP - General Family Medicine 08/25/18 11/30/24 documented as of this encounter
--- OUTSIDE RECORDS SUMMARY | 2024-12-15 23:45 | XMS_ITS | Encounter Summary ---
Author Organization [facility] Address [facility] [place] [address] Care Team Providers Care Marketing Database Consultant Name Role Phone Mateo Waite DO Primary Care Provider [phone] Encounter Details Date Type Department Care Team (Late st Contact Info) Description 08/16/2018 Orders [place] [address] Mackenzie Leung CMA Intermittent claudication Social History [...] Text Report Department: Vascular Surgery Lab Patient: [id number] (ZHENMARY) CPT: 17218 ICD10: I73.9 Referring Physician: BEREINCE TIERNEY ?? Indications: Patient with bilateral lower [...] unspecified documented in this encounter Care Teams Marketing Database Consultant Relationship Specialty Start Date End Date Mateo Waite, [address] [place] [address] PCP - General 10/14/10 08/24/18 documented as of this encounter
--- OUTSIDE RECORDS SUMMARY | 2024-12-15 23:45 | XMS_ITS | Encounter Summary ---
Author [facility] [place] [address] Care Team Providers Care Blast Furnace Helper Name Role Phone Mateo Waite DO Primary Care Provider [phone] Reason for Visit * Reason Onset Date Comments Other 08/19/2018 Encounter Details Date Type Department Care Team (Late st Contact Info) Description 08/19/2018 Tele[place] [address] Anne Knox Other Social History Tobacco Use [...] on filedocumented in this encounter Care Teams Blast Furnace Helper Relationship Specialty Start Date End Date Mateo Waite, DO [address] [place] [address] PCP - General 10/14/10 08/24/18 documented as of this encounter
--- OUTSIDE RECORDS SUMMARY | 2024-12-15 23:45 | XMS_ITS | Encounter Summary ---
Author Organization [facility] Address [facility] [place] [address] Care Team Providers Care Therapeutic Recreation Director Name Role Phone Rosi Bower MD Primary Care Provider [phone] Reason for Visit * Reason Comments Claudication pt states leg fatigu e on ambulation * Consultation (Routine) - Specialty Diagnoses / Procedures Referred By Contac t Referred To Contact Vascular Surgery Diagnoses Peripheral vascular disease, unspecified CLAUDICATION LOWER EXTREMITIES Rosi Bower MD [address] [place] [address] [address] [facility] [address] [place] [address] [facility] [address] [place] [address] Referral ID Status Reason Start Date Expiration Date V isits Requested Visits Authorized [id number] Consult, Test [facility] PCP Updated and/or Approved 08/21/2018 02/18/2019 6 6 Encounter Details Date Type Department Care Team (Late st Contact Info) Description 08/25/2018 2:30 PM EDT Office [place] [address] Jose Antonio Pelayo MD [facility] [place] [address] Intermittent claudication Social History Tobacco [...] Text Report Department: Vascular Surgery Lab Patient: [id number] (ZHENMARY) CPT: 59155 ICD10: I73.9 Referring Physician: BERENICE TIERNEY Indications: [...] unspecified documented in this encounter Care Teams Therapeutic Recreation Director Relationship Specialty Start Date End Date Rosi Bower MD [address] [place] [address] PCP - General Family Medicine 08/25/18 11/30/24 documented as of this encounter
[2024-12-15 23:46] VITALS: RESP 16
[2024-12-15 23:50] VITALS: PULSE 89; RESP 20; O2SAT 97
[2024-12-15] MEDS: Aspirin 81 MG CHEW 324 MG CH (23:53)
[2024-12-16] VITALS (121 sets, daily range): BP systolic 94–146; BP diastolic 28–76; PULSE 78–112; RESP 11–29; TEMP 36.5–37.3; O2SAT 92–100
[2024-12-16 00:01] LABS: Abs Immature Grans 0.04 10^3/uL (0.0-0.06); Absolute Basophil Count 0.05 10^3/uL (0.0-0.2); Absolute Eosinophil Count 0.12 10^3/uL (0.0-0.7); Absolute Lymphocyte Count 1.98 10^3/uL (1.2-3.4); Absolute Monocyte Count 1.05 10^3/uL (0.1-0.8); Basophils % 0.4 %; HCT 40.6 % (36.0-46.0); HGB 13.5 g/dL (11.2-15.7); Immature Grans % 0.3 %; Lymphocytes % 16.7 %; MCH 29.4 pg (27.0-33.0); MCHC 33.3 % (32.0-36.0); MCV 89 fL (80-95); MPV 11.6 fL (8.0-11.0); Monocytes % 8.8 %; Neutrophils % 72.8 %; Platelet Count 167 10^3/uL (130-400); RBC 4.59 10^6/uL (3.93-5.22); RDW 13.2 % (11.7-14.6); RDW-SD 42.5 fL; WBC 11.88 10^3/uL (4.4-10.8)
[2024-12-16 00:02] LABS: Absolute Neutrophil Count 8.65 10^3/uL (1.2-6.7)
[2024-12-16 00:14] LABS: PTT Activated 24.5 sec (20.6-30.2); Prothrombin Time 10.4 sec (9.1-11.1)
--- NOTE | 2024-12-16 00:22 | ED.GENADUL_ITS ---
Discharge Plan Disposition Patient Disposition: Admit to [facility] Condition: Serious Discharge Details Clinical Impression: Unstable angina Primary Care Provider: Polo Amaro ED Provider: Sugar Perera Home Meds and New Rx's Prescriptions: No Action ascorbic acid (vitamin C) 500 mg tablet 500 mg PO DAILY aspirin 81 mg tablet,delayed release (DR/EC) 81 mg PO DAILY omeprazole 20 mg capsule,delayed release(DR/EC) 20 mg PO DAILY Qty: 90 4RF (DME) Blood Glucose Test 1 EACH strip 1 ea Miscellaneous DAILY Qty: 100 Rx Instructions: [employer] PLUS TEST STRIPS/ PT DOES NOT USE INSULIN. DIAGNOSIS CODE e11.9 ibuprofen 600 mg tablet 600 mg PO TID PRN (Reason: fever or pain) Qty: 60 3RF Rx Instructions: TAKE WITH FOOD acetaminophen 500 mg tablet 1,000 mg PO Q8H PRN (Reason: pain) Qty: 90 3RF nitroglycerin 0.4 mg tablet, sublingual See Rx Instructions .ROUTE .COMPLEX Qty: 25 3RF Dose Instruction: PLACE ONE TABLET UNDER THE TONGUE EVERY 5 MINUTES FOR UP TO 3 DOSES NEEDED FOR CHEST PAIN. IF CHEST PAIN STILL PERSISTS CONTACT 911 Rx Instructions: PLACE ONE TABLET UNDER THE TONGUE EVERY 5 MINUTES FOR UP TO 3 DOSES NEEDED FOR CHEST PAIN. IF CHEST PAIN STILL PERSISTS CONTACT 911 dapagliflozin propanediol 10 mg tablet 10 mg PO DAILY Qty: 90 4RF amlodipine 10 mg tablet 10 mg PO DAILY Qty: 7 0RF Rx Instructions: take one tablet daily atorvastatin [Lipitor] 80 mg tablet 80 mg PO DAILY Qty: 7 0RF chlorthalidone 25 mg tablet 25 mg PO DAILY Qty: 7 0RF ferrous sulfate 325 mg (65 mg iron) tablet 650 mg PO BID Qty: 14 0RF glipizide 10 mg tablet 10 mg PO BID Qty: 14 0RF losartan 100 mg tablet 100 mg PO DAILY Qty: 7 0RF Slow-Mag 71.5 mg tablet,delayed release (DR/EC) 71.5 mg PO BID Qty: 14 0RF metformin 1,000 mg tablet 1,000 mg PO BID Qty: 14 0RF metoprolol tartrate 50 mg tablet 50 mg PO BID Qty: 14 0RF Rx Instructions: 05-15-21 increased dose/ take one tablet twice a day pramipexole 0.25 mg tablet 0.25 mg PO QHS Qty: 7 0RF sertraline [Zoloft] 50 mg tablet 50 mg PO HS Qty: 7 0RF Ozempic 0.25 mg or 0.5 mg (2 mg/3 mL) pen injector 0.5 mg subcut QWEEK Qty: 3 0RF Rx Instructions: for 4 weeks HPI General Date/Time Provider Initiated Documentation: 12/15/24 23:40 . Limitations to Documentation: no limitations . Information obtained by: patient . HPI Narrative: 74yo F with hx HTN, HLD, DM, MS, CAD with stent in place, presenting for chest pain. Pain started around 10pm, left sided, radiating into her left shoulder. Took nitro at 10:45 and then again at 11pm, now chest pain free. This does not feel similar to her prior heart attack. Breathing felt 'tight' when pain was present but feels normal now. No lightheadedness or syncope. No palpations. No new LE edema. Otherwise in her usual state of health with no fevers, chills, rash, nausea, vomiting, abdominal pain, numbness, tingling, weakness, or other concerns. Related Data Home Medications ?Medication ?Instructions ?Recorded ?Confirmed blood sugar diagnostic (Blood #100 strips 02/12/17 12/15/24 Glucose Test strips) ascorbic acid (vitamin C) 500 mg 500 mg PO DAILY 09/12/19 12/15/24 tablet aspirin 81 mg tablet,delayed 81 mg PO DAILY 09/09/20 12/15/24 release ibuprofen 600 mg tablet 600 mg PO TID PRN fever or pain 03/05/23 12/15/24 #60 tabs acetaminophen 500 mg tablet 1,000 mg (2 x 500 mg) PO Q8H PRN 12/29/23 12/15/24 pain #90 tabs nitroglycerin 0.4 mg sublingual See Rx Instructions .Route 05/29/24 12/15/24 tablet .COMPLEX #25 tabs dapagliflozin propanediol 10 mg 10 mg PO DAILY #90 tabs 08/10/24 12/15/24 tablet omeprazole 20 mg capsule,delayed 20 mg PO DAILY #90 caps 08/16/24 12/15/24 release amlodipine 10 mg tablet 10 mg PO DAILY #7 tabs 08/25/24 12/15/24 atorvastatin 80 mg tablet (Lipitor) 80 mg PO DAILY #7 tabs 08/25/24 12/15/24 chlorthalidone 25 mg tablet 25 mg PO DAILY #7 tabs 08/25/24 12/15/24 ferrous sulfate 325 mg (65 mg 650 mg (2 x 325 mg (65 mg iron)) 08/25/24 12/15/24 iron) tablet PO BID #14 tabs glipizide 10 mg tablet 10 mg PO BID #14 tab-caps 08/25/24 12/15/24 losartan 100 mg tablet 100 mg PO DAILY #7 tabs 08/25/24 12/15/24 magnesium chloride 71.5 mg 71.5 mg PO BID #14 tabs 08/25/24 12/15/24 (magnesium chloride) tablet,delayed release (Slow-Mag) metformin 1,000 mg tablet 1,000 mg PO BID #14 tabs 08/25/24 12/15/24 metoprolol tartrate 50 mg tablet 50 mg PO BID #14 tabs 08/25/24 12/15/24 pramipexole 0.25 mg tablet 0.25 mg PO QHS #7 tabs 08/25/24 12/15/24 sertraline 50 mg tablet (Zoloft) 50 mg PO HS #7 tab-caps 08/25/24 12/15/24 semaglutide 0.25 mg or 0.5 mg (2 0.5 mg (0.736 mL) subcut QWEEK #3 11/16/24 12/15/24 mg/3 mL) subcutaneous pen injector mL (Ozempic) Previous Rx's ?Medication ?Instructions ?Recorded ibuprofen 600 mg tablet 600 mg PO TID PRN fever or pain 03/05/23 #60 tabs acetaminophen 500 mg tablet 1,000 mg (2 x 500 mg) PO Q8H PRN 12/29/23 pain #90 tabs nitroglycerin 0.4 mg sublingual See Rx Instructions .Route 05/29/24 tablet .COMPLEX #25 tabs dapagliflozin propanediol 10 mg 10 mg PO DAILY #90 tabs 08/10/24 tablet omeprazole 20 mg capsule,delayed 20 mg PO DAILY #90 caps 08/16/24 release amlodipine 10 mg tablet 10 mg PO DAILY #7 tabs 08/25/24 atorvastatin 80 mg tablet (Lipitor) 80 mg PO DAILY #7 tabs 08/25/24 chlorthalidone 25 mg tablet 25 mg PO DAILY #7 tabs 08/25/24 ferrous sulfate 325 mg (65 mg 650 mg (2 x 325 mg (65 mg iron)) 08/25/24 iron) tablet PO BID #14 tabs glipizide 10 mg tablet 10 mg PO BID #14 tab-caps 08/25/24 losartan 100 mg tablet 100 mg PO DAILY #7 tabs 08/25/24 magnesium chloride 71.5 mg 71.5 mg PO BID #14 tabs 08/25/24 (magnesium chloride) tablet,delayed release (Slow-Mag) metformin 1,000 mg tablet 1,000 mg PO BID #14 tabs 08/25/24 metoprolol tartrate 50 mg tablet 50 mg PO BID #14 tabs 08/25/24 pramipexole 0.25 mg tablet 0.25 mg PO QHS #7 tabs 08/25/24 sertraline 50 mg tablet (Zoloft) 50 mg PO HS #7 tab-caps 08/25/24 semaglutide 0.25 mg or 0.5 mg (2 0.5 mg (0.736 mL) subcut QWEEK #3 11/16/24 mg/3 mL) subcutaneous pen injector mL (NetWitness) Allergies Allergy/AdvReac Type Severity Reaction Status Date / Time hydrochlorothiazide AdvReac Mild GI upset Verified 12/15/24 23:49 lisinopril AdvReac Mild cough Verified 12/15/24 23:49 naproxen AdvReac Mild Itching Verified 12/15/24 23:49 oxycodone HCl (From Percocet) AdvReac Mild n and v Verified 12/15/24 23:49 tetracycline AdvReac Mild G[set Verified 12/15/24 23:49 General Stated Complaint: Chest Pain SHARRON: 2 Review of Systems Narrative: see HPI Exam Narrative Exam Narrative: General: Alert, well appearing, well nourished, in no acute distress. Head: Normocephalic, atraumatic Neck: Trachea midline, ?Neck supple. ENT: ?MMM.? No oropharygeal lesions or exudate. Cardiac: ?RRR, no murmurs appreciated Resp: No respiratory distress. CTAB. Abd: ?Soft, non-distended, nontender : ?No suprapubic tenderness. Extremities: ?No deformities.? No peripheral edema. Neurologic: GCS 15. ? Moves all extremities freely against gravity Course Vital Signs Vital signs: Vital Signs Temperature 36.8 C 12/15/24 23:41 Pulse 93 H 12/15/24 23:41 Respiratory Rate 16 12/15/24 23:41 Blood Pressure 171/56 H 12/15/24 23:41 Pulse Oximetry 95 12/15/24 23:41 Temperature 36.8 C 12/15/24 23:41 Pulse 93 H 12/15/24 23:41 Respiratory Rate 16 12/15/24 23:46 Respiratory Effort Normal, Non-Labored 12/15/24 23:46 Respiratory Depth Normal 12/15/24 23:46 Respiratory Pattern Normal 12/15/24 23:46 Blood Pressure 171/56 H 12/15/24 23:41 Pulse Oximetry 95 12/15/24 23:41 Oxygen Delivery Method Room Air 12/15/24 23:41 Oxygen Flow Rate 0 12/15/24 23:41 Pain Level 7 12/15/24 23:46 Lab/Test Results Lab/Test Results: Laboratory Tests Range/Units 12/15/24 23:55 WBC (4.4-10.8) 10^3/uL 11.88 H RBC (3.93-5.22) 10^6/uL 4.59 Hgb (11.2-15.7) g/dL 13.5 Hct (36.0-46.0) % 40.6 MCV (80-95) fL 89 MCH (27.0-33.0) pg 29.4 MCHC (32.0-36.0) % 33.3 RDW (11.7-14.6) % 13.2 Plt Count (130-400) 10^3/uL 167 MPV (8.0-11.0) fL 11.6 H Immature Gran % % 0.3 Neutrophils % % 72.8 Lymphocytes % % 16.7 Monocytes % % 8.8 Eosinophils % % 1.0 Basophils % % 0.4 Nucleated RBC % (0.0-0.3) % 0.0 Absolute Neutrophils (1.2-6.7) 10^3/uL 8.65 H Absolute Lymphocytes (1.2-3.4) 10^3/uL 1.98 Absolute Monocytes (0.1-0.8) 10^3/uL 1.05 H Absolute Eosinophils (0.0-0.7) 10^3/uL 0.12 Absolute Basophils (0.0-0.2) 10^3/uL 0.05 PT (9.1-11.1) sec 10.4 INR (0.9-1.1) 1.0 APTT (20.6-30.2) sec 24.5 Medical Decision Making 74yo F with hx HTN, HLD, DM, MS, CAD with stent in place, presenting for chest pain. Onset 10pm, left sided, radiating into her left shoulder; nitro x 1 prior to arrival, now chest pain free. Does not feel like prior heart attack. Hypertensive on arrival, vital signs otherwise reassuring. In no distress on arrival, appears comfortable. Given 325 ASA on arrival, EKG SR, appropriate intervals, slight elevations in II and III not meeting STEMI criteria. With no SOB, hypoxia, back pain, or neurologic symptoms is not particularly suggestive of pulmonary embolism or aortic dissection; would not get CT at this time. Labs reviewed as below, CBC reassuring with no significant leukocytosis or anemia, CMP with no actionable abnormalities, Mg low at 0.9 (IV replacement given), BNP mildly elevated at 370 not suggestive of acute heart failure, lipase normal, troponins 7,6. CXR independently reviewed, no focal pneumonia or significant pulmonary edema on my view; radiology read below. Pt subsequently got up to bathroom and again had severe chest pain, now substernal and 'crushing'. Repeat EKG unchanged, again with Improved with nitro x 2. 3rd troponin 6. Overall most consistent with unstable angina and warrants transfer for ischemic eval. Pt would prefer [facility] (prior cath there); discussed with Dr. Cabral cardiology and no capacity for transfer at this time, advised medical management in the meantime with plavix load and heparin gtt. Discussed with [facility] cardiology Dr. Jimenez; pt accepted under Dr. Mora, anticipated bed availability tomorrow 12/17/24. Discussed with [facility] hospitalist Dr. Rodriguez; pt accepted to medicine service. Will need to board in the ED awaiting bed availability. Awaiting admission orders. Imaging Data Radiologic Study: Imaging: X-Ray Radiologist's impression: IMPRESSION: No acute findings Lab Data Lab results reviewed: Yes I reviewed the patient's lab results. Labs: Laboratory Tests Range/Units 12/15/24 12/16/24 23:55 00:45 WBC (4.4-10.8) 10^3/uL 11.88 H RBC (3.93-5.22) 10^6/uL 4.59 Hgb (11.2-15.7) g/dL 13.5 Hct (36.0-46.0) % 40.6 MCV (80-95) fL 89 MCH (27.0-33.0) pg 29.4 MCHC (32.0-36.0) % 33.3 RDW (11.7-14.6) % 13.2 Plt Count (130-400) 10^3/uL 167 MPV (8.0-11.0) fL 11.6 H Immature Gran % % 0.3 Neutrophils % % 72.8 Lymphocytes % % 16.7 Monocytes % % 8.8 Eosinophils % % 1.0 Basophils % % 0.4 Nucleated RBC % (0.0-0.3) % 0.0 Absolute Neutrophils (1.2-6.7) 10^3/uL 8.65 H Absolute Lymphocytes (1.2-3.4) 10^3/uL 1.98 Absolute Monocytes (0.1-0.8) 10^3/uL 1.05 H Absolute Eosinophils (0.0-0.7) 10^3/uL 0.12 Absolute Basophils (0.0-0.2) 10^3/uL 0.05 PT (9.1-11.1) sec 10.4 INR (0.9-1.1) 1.0 APTT (20.6-30.2) sec 24.5 Sodium (136-145) mmol/L 140 Potassium (3.5-5.1) mmol/L 3.6 Chloride (98-107) mmol/L 105 Carbon Dioxide (21.0-32.0) mmol/L 28.8 Anion Gap (3-11) mmol/L 6.2 BUN (7-18) mg/dL 22 H Creatinine (0.55-1.02) mg/dL 1.0 Est GFR (CKD-EPI 2020) (mL/min/1.73m2) 58.75 Glucose (74-106) mg/dL 151 H Calcium (8.5-10.1) mg/dL 9.0 Magnesium (1.8-2.4) mg/dL 0.9 L Total Bilirubin (0.2-1.0) mg/dL 0.38 AST (15-37) U/L 21 ALT (14-59) U/L 43 Alkaline Phosphatase (46-116) U/L 82 Troponin I (<or=51) ng/L 7 6 NT-Pro-B Natriuret Pep (<300) pg/mL 370 H Total Protein (6.4-8.2) g/dL 6.9 Albumin (3.4-5.0) g/dL 3.6 Lipase (<78) U/L 55 Quality:SDCA Health Related Social Needs: No Data to Display Critical Care Time Critical Care Time Critical Care Time: Yes Total Critical Care Time: 34 Attestation: Due to a high probability of clinically significant, life threatening deterioration, the patient required my highest level of preparedness to intervene emergently and I personally spent this critical care time directly and personally managing the patient. This critical care time included obtaining a history; examining the patient; pulse oximetry; ordering and review of studies; arranging urgent treatment with development of a management plan; evaluation of patient's response to treatment; frequent reassessment; and, discussions with other providers. This critical care time was performed to assess and manage the high probability of imminent, life-threatening deterioration that could result in multi-organ failure. It was exclusive of separately billable procedures and treating other patients? PFSH All Active Problems (Updated 12/16/24 @ 04:40 by Sugar Perera MD) Unstable angina (Acute) Right shoulder pain (Acute) Iron deficiency anemia (Acute) Right knee pain (Acute) Claudication of both lower extremities (Acute) Fatigue (Acute) Restless leg syndrome (Acute) Sensorineural hearing loss (SNHL) of both ears (Acute) Impacted cerumen, bilateral (Acute) Obesity (BMI 30-39.9) (Acute) Trigger finger, right middle finger (Acute) Right carpal tunnel syndrome (Chronic) Carotid stenosis (Chronic) History of tobacco use (Acute) CAD (coronary artery disease) (Chronic) Moderate aortic regurgitation (Chronic 04/09/15) echo. -2015: stable x 03/2015/ -2017:stable Hyperlipidemia (Chronic 04/26/13) Essential hypertension (Chronic 10/24/13) Diabetes mellitus (Chronic 04/26/13) Ophtalmo. neg. 07/2016)/no nephro 2016 Depressive disorder (Chronic) Cataracts, both eyes (Chronic 08/24/17) [facility]; MILD Medical History Status post left heart catheterization (LHC) (~08/2018) 2 stents RCA. Normal vascular exam no lower extremity arterial occlusive disease/ [facility] Vascular lab. 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 Stenting x2 Abdominal hysterectomy (~1997) Family History Mother , 63 Diabetes Father , 80's Stroke Sister , 65 Neoplasm Sister , 80's Cancer Brother , 60's Heart disease Brother , 78 Diabetes Alcohol abuse Social History Smoking/Tobacco Use Status: Former Tobacco Use tobacco type: cigarettes Quit Date: 11/22/89 Pack-years: 40 Tobacco: How many years used: 30 Second Hand Exposure: Yes Smoking risk assessment performed?: Yes Alcohol Intake: never Drug use: Never Substance use type: does not use Caregiver/Support person: No Household members: none Housing: house Do you need help understanding health information?: Never current occupation: [employer] Pets and animals: No Sexually active: No Do you think of yourself as: straight/heterosexual Current gender identity: female What is your relationship status?: How often do you talk on the phone with friends or family?: three or more times per week How often do you get together with friends or relatives?: three or more times per week How often do you attend restorationist or tenriism services?: decline to answer Do you belong to any clubs or organized social groups?: no Panel score (0-1 are the most socially isolated patients): 1 What type of physical activity do you participate in: walking Duration: > 90 minutes/day Frequency: 5-6 times per week [place]/Synagogue: Worship Special [place] needs: No Seatbelt use: sometimes Helmet use: No Drive intox or ride w/intox new aut[employer] delivery driver: No Do you feel safe at home: Yes Additional Social history: Lives alone; daughter is with pt - unable to ask privately
[2024-12-16 00:24] LABS: ALT 43 U/L (14-59); AST 21 U/L (15-37); Albumin 3.6 g/dL (3.4-5.0); Alkaline Phosphatase 82 U/L (46-116); Anion Gap 6.2 mmol/L (3-11); BUN 22 mg/dL (7-18); Bilirubin, Total 0.38 mg/dL (0.2-1.0); CO2 28.8 mmol/L (21.0-32.0); Chloride 105 mmol/L (98-107); Estimated GFR 58.75 (mL/min/1.73m2); Glucose 151 mg/dL (74-106); Lipase 55 U/L (<78); Magnesium 0.9 mg/dL (1.8-2.4); NT-proBNP 370 pg/mL (<300); Potassium 3.6 mmol/L (3.5-5.1); Sodium 140 mmol/L (136-145); Total Protein 6.9 g/dL (6.4-8.2); Troponin I 7 ng/L (<or=51)
--- NOTE | 2024-12-16 00:36 | DI.VRAD_ITS ---
PROCEDURE INFORMATION: Exam: XR Chest Exam date and time: 12/16/2024 12:02 AM Age: 74 years old Clinical indication: Chest pressure; Patient HX: Chest pain TECHNIQUE: Imaging protocol: Radiologic exam of the chest. Views: 1 view. COMPARISON: CT CHEST PE CTA 08/29/2021 7:42 PM FINDINGS: Lungs: Unremarkable. No consolidation. Pleural spaces: Unremarkable. No pleural effusion. No pneumothorax. Heart/Mediastinum: Unremarkable. No cardiomegaly. Bones/joints: Unremarkable. IMPRESSION: No acute findings. Dictated and Authenticated by: Win Zhou MD. Ordering:LIANE Wooten MD
[2024-12-16] MEDS: MAGNESIUM SULFATE 2 GM/50 ML BAG IV_INF ×2 (00:42→19:50)
[2024-12-16 01:06] LABS: Troponin I 6 ng/L (<or=51)
--- NOTE | 2024-12-16 02:30 | RT.EKG_ITS ---
APPROVED REPORT Exam: Resting ECG Reason for Exam: chest pain Patient Location: E HR:94 bpm ECG Measurements Heart Rate 94 AXIS NH 173 P -16 QRSd 87 QRS 31 QT 367 T 79 QTc 459 Conclusion Sinus rhythm...normal P axis, V-rate 60- 99 Inferior infarct, old...Q >35mS, II III aVF no STEMI
[2024-12-16] MEDS: nitroGLYcerin 0.4 MG TAB ×2 (02:53→03:03)
--- NOTE | 2024-12-16 03:04 | NUR.NOTE ---
Nursing Note: Patient ambulatory to the bathroom at 0235. Upon returning to her room, pt rang call tiffany reporting 10/10 crushing chest pain. Provider ordered EKG. 0.4 nitro given to pt with some relief. second dose of 0.4 nitro given. Pressure dropped to 106/43. 1 L NS ordered and hung.
[2024-12-16] MEDS: Normal Saline 1,000 ML 1000 ML IV (03:12)
[2024-12-16 03:24] LABS: Troponin I 6 ng/L (<or=51)
[2024-12-16] MEDS: Clopidogrel 300 MG TAB 600 MG PO (03:27)
[2024-12-16] MEDS: Heparin in 0.45% NaCl 25,000 UNIT/250 ML BAG 8.5 UNIT IVINF (03:34)
--- NOTE | 2024-12-16 05:38 | HPE_ITS ---
Date of service: 12/16/24 Time of Service: 05:38 Assessment and Plan Assessment and plan (1) Chest pain: Status: Acute Assessment and plan: CP, etiology not clear. With h/o CAD, exertional element and at least partial response to NTG, serious concern for ACS (unstable angina), though negative troponins and negative EKG are reassuring to some degree. Will continue heparin and DUAP as advised and leave NPO pending transfer to [facility] for cath. History of Present Illness History of Present Illness Chief Complaint: CP Narrative: 74 female with h/o CAD, s/p WV and stent x2 2018. Last night had episode of resting CP (while in bed). Took NTG x2 with partial relief and came to ER. Notably she stated to ER that this was identical to pain of prior WV but she tells me it was decidedly different. In any case EKG upon arrival shows only old IMI, no acute changes. Troponins negative. After getting up to bathroom patient reported recurrent CP, EKG again no change, again NTG with partial relief. Case reveiwed with Cardiology at [facility], advise heparin and DUAP, but no bed availability. [facility] accepts for transfer today, service of Dr. Mora. I was asked to evaluate for admission. At present patient states she has minimal to no pain. Denies SOB, nausea or diaphoresis. Review of Systems Narrative: per HPI PFSH All Active Problems (Updated 12/16/24 @ 05:46 by Win Rodriguez MD) Chest pain (Acute) Unstable angina (Acute) Right shoulder pain (Acute) Iron deficiency anemia (Acute) Right knee pain (Acute) Claudication of both lower extremities (Acute) Fatigue (Acute) Restless leg syndrome (Acute) Sensorineural hearing loss (SNHL) of both ears (Acute) Impacted cerumen, bilateral (Acute) Obesity (BMI 30-39.9) (Acute) Trigger finger, right middle finger (Acute) Right carpal tunnel syndrome (Chronic) Carotid stenosis (Chronic) History of tobacco use (Acute) CAD (coronary artery disease) (Chronic) Moderate aortic regurgitation (Chronic 04/09/15) echo. -2015: stable x 03/2015/ -2017:stable Hyperlipidemia (Chronic 04/26/13) Essential hypertension (Chronic 10/24/13) Diabetes mellitus (Chronic 04/26/13) Ophtalmo. neg. 07/2016)/no nephro 2016 Depressive disorder (Chronic) Cataracts, both eyes (Chronic 08/24/17) [facility]; [facility] Medical History Status post left heart catheterization (LHC) (~08/2018) 2 stents RCA. Normal vascular exam no lower extremity arterial occlusive disease/ [facility] Vascular lab. 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 Stenting x2 Abdominal hysterectomy (~1997) Family History Mother , 63 Diabetes Father , 80's Stroke Sister , 65 Neoplasm Sister , 80's Cancer Brother , 60's Heart disease Brother , 78 Diabetes Alcohol abuse Social History Smoking/Tobacco Use Status: Former Tobacco Use tobacco type: cigarettes Quit Date: 11/22/89 Pack-years: 40 Tobacco: How many years used: 30 Second Hand Exposure: Yes Smoking risk assessment performed?: Yes Alcohol Intake: never Drug use: Never Substance use type: does not use Caregiver/Support person: No Household members: none Housing: house Do you need help understanding health information?: Never 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 Pets and animals: No Sexually active: No Do you think of yourself as: straight/heterosexual Current gender identity: female What is your relationship status?: How often do you talk on the phone with friends or family?: three or more times per week How often do you get together with friends or relatives?: three or more times per week How often do you attend mormon or rastafari services?: decline to answer Do you belong to any clubs or organized social groups?: no Panel score (0-1 are the most socially isolated patients): 1 What type of physical activity do you participate in: walking Duration: > 90 minutes/day Frequency: 5-6 times per week [place]/Roman Catholic: Rastafarian Special carolina needs: No Seatbelt use: sometimes Helmet use: No Drive intox or ride w/intox professional driver: No Do you feel safe at home: Yes Additional Social history: Lives alone; daughter is with pt - unable to ask privately Meds Allergies and Home Medications Allergies Allergy/AdvReac Type Severity Reaction Status Date / Time hydrochlorothiazide AdvReac Mild GI upset Verified 12/15/24 23:49 lisinopril AdvReac Mild cough Verified 12/15/24 23:49 naproxen AdvReac Mild Itching Verified 12/15/24 23:49 oxycodone HCl (From Percocet) AdvReac Mild n and v Verified 12/15/24 23:49 tetracycline AdvReac Mild G[set Verified 12/15/24 23:49 Home Medications ?Medication ?Instructions ?Recorded ?Confirmed ?Type blood sugar diagnostic (Blood #100 strips 02/12/17 12/15/24 History Glucose Test strips) ascorbic acid (vitamin C) 500 mg 500 mg PO DAILY 09/12/19 12/15/24 History tablet aspirin 81 mg tablet,delayed 81 mg PO DAILY 09/09/20 12/15/24 History release ibuprofen 600 mg tablet 600 mg PO TID PRN fever or pain 03/05/23 12/15/24 Rx #60 tabs acetaminophen 500 mg tablet 1,000 mg (2 x 500 mg) PO Q8H PRN 12/29/23 12/15/24 Rx pain #90 tabs nitroglycerin 0.4 mg sublingual See Rx Instructions .Route 05/29/24 12/15/24 Rx tablet .COMPLEX #25 tabs dapagliflozin propanediol 10 mg 10 mg PO DAILY #90 tabs 08/10/24 12/15/24 Rx tablet omeprazole 20 mg capsule,delayed 20 mg PO DAILY #90 caps 08/16/24 12/15/24 Rx release amlodipine 10 mg tablet 10 mg PO DAILY #7 tabs 08/25/24 12/15/24 Rx atorvastatin 80 mg tablet (Lipitor) 80 mg PO DAILY #7 tabs 08/25/24 12/15/24 Rx chlorthalidone 25 mg tablet 25 mg PO DAILY #7 tabs 08/25/24 12/15/24 Rx ferrous sulfate 325 mg (65 mg 650 mg (2 x 325 mg (65 mg iron)) 08/25/24 12/15/24 Rx iron) tablet PO BID #14 tabs glipizide 10 mg tablet 10 mg PO BID #14 tab-caps 08/25/24 12/15/24 Rx losartan 100 mg tablet 100 mg PO DAILY #7 tabs 08/25/24 12/15/24 Rx magnesium chloride 71.5 mg 71.5 mg PO BID #14 tabs 08/25/24 12/15/24 Rx (magnesium chloride) tablet,delayed release (Slow-Mag) metformin 1,000 mg tablet 1,000 mg PO BID #14 tabs 08/25/24 12/15/24 Rx metoprolol tartrate 50 mg tablet 50 mg PO BID #14 tabs 08/25/24 12/15/24 Rx pramipexole 0.25 mg tablet 0.25 mg PO QHS #7 tabs 08/25/24 12/15/24 Rx sertraline 50 mg tablet (Zoloft) 50 mg PO HS #7 tab-caps 08/25/24 12/15/24 Rx semaglutide 0.25 mg or 0.5 mg (2 0.5 mg (0.736 mL) subcut QWEEK #3 11/16/24 12/15/24 Rx mg/3 mL) subcutaneous pen injector mL (Ozempic) Exam Narrative Exam Narrative: 131/47, 91, 36.8, 17, 98%. HEENT atraumatic; neck supple w/o JVD' lungs clear; heart RRR w/o MRG; abdomen soft and NT; extremities w/o edema; neuro Ox3, lucid, moves all 4s Results Labs 12/15/24 23:55 12/15/24 23:55 Labs: Laboratory Results - last 24 hr 12/15/24 12/16/24 12/16/24 23:55 00:45 03:00 WBC 11.88 H RBC 4.59 Hgb 13.5 Hct 40.6 MCV 89 MCH 29.4 MCHC 33.3 RDW 13.2 Plt Count 167 MPV 11.6 H Immature Gran % 0.3 Neutrophils % 72.8 Lymphocytes % 16.7 Monocytes % 8.8 Eosinophils % 1.0 Basophils % 0.4 Nucleated RBC % 0.0 Absolute Neutrophils 8.65 H Absolute Lymphocytes 1.98 Absolute Monocytes 1.05 H Absolute Eosinophils 0.12 Absolute Basophils 0.05 PT 10.4 INR 1.0 APTT 24.5 Sodium 140 Potassium 3.6 Chloride 105 Carbon Dioxide 28.8 Anion Gap 6.2 BUN 22 H Creatinine 1.0 Est GFR (CKD-EPI 2020) 58.75 Glucose 151 H Calcium 9.0 Magnesium 0.9 L Total Bilirubin 0.38 AST 21 ALT 43 Alkaline Phosphatase 82 Troponin I 7 6 6 NT-Pro-B Natriuret Pep 370 H Total Protein 6.9 Albumin 3.6 Lipase 55 Last Vital Signs Temp 36.8 C 12/15/24 23:41 Pulse 91 H 12/16/24 04:50 Resp 17 12/16/24 04:50 BP 131/47 L 12/16/24 04:50 Pulse Ox 98 12/16/24 04:50 Time Spent Time spent with Patient: 40-54 minutes Time was spent: preparing to see the patient(eg.review tests), obtaining and/or reviewing separately otained hiistory, ordering medications,tests, procedures, referring, communicating with other health clinical care leader and indepentently interpreting results
--- OUTSIDE RECORDS SUMMARY | 2024-12-16 06:08 | XMS_ITS | Clinical Summary ---
Author Organization [facility] Address [facility] [place] [address] Care Team Providers Care Bus Escort Name Role Phone None Primary Care Provider [...] Noted Date Diagnosed Date Intermittent claudication 08/16/2018 Encounters Date Type Department Care Team Description 12/16/2024 Telephone Cardiology at [address] [place] [address] Nancy Salazar MD 12/16/2024 External [place] [address] from Last 3 Months Immunizations Name Administration Dates Next Due Influenza [...] 08/25/2018 2:48 PM EDT Plan of Treatment Upcoming Encounters Date Type Department Care Team (Late st Contact Info) Description 12/17/2024 Hospital Encounter Heart and Vascular Unit Level 3 [place] [address] Julito Mora MD [facility] [place] [address] Health Maintenance Due Date Last Done Comments [...] - 1-dose 75+ series) 2024 Covid-19 Vaccine ( season) 2024 Influenza (Flu) vaccine (1 o f 1 - Influenza standard series) 07/23/2024 09/15/2006, 09/23/2005 Procedures Procedure Name Priority Date/Time Associated Diagnosis Comments MISC EXTERNAL CARDIOLOGY RESULT Routine 12/16/2024 4:55 AM EST from Last 3 Months Results * External Cardiology Result (12/16/2024 4:55 AM EST) Anatomical Region Laterality Modality Other Historical Provider EXTERNAL CARDIOLO GY RESULT from Last 3 Months Care Teams Bus Escort Relationship Specialty Start Date End Date None None PCP - General 12/01/24
--- OUTSIDE RECORDS SUMMARY | 2024-12-16 06:08 | XMS_ITS | Encounter Summary ---
Author Organization [facility] Address [facility] [place] [address] Care Team Providers Care Foreclosure Specialist Name Role Phone Rosi Bower MD Primary Care Provider [phone] Reason for Visit * Reason Comments Claudication pt states leg fatigu e on ambulation * Consultation (Routine) - Specialty Diagnoses / Procedures Referred By Contac t Referred To Contact Vascular Surgery Diagnoses Peripheral vascular disease, unspecified CLAUDICATION LOWER EXTREMITIES Rosi Bower MD [address] [place] [address] [address] [facility] [address] [place] [address] [facility] Vascular Surg [address] [place] [address] Referral ID Status Reason Start Date Expiration Date V isits Requested Visits Authorized [id number] Consult, Test & Treat Connection Center PCP Updated and/or Approved 08/21/2018 02/18/2019 6 6 Encounter Details Date Type Department Care Team (Late st Contact Info) Description 08/25/2018 2:30 PM EDT Office [place] [address] Jose Antonio Pelayo MD [facility] [place] [address] Intermittent claudication Social History Tobacco [...] Text Report Department: Vascular Surgery Lab Patient: [id number] (ZHENMARY) CPT: 11153 ICD10: I73.9 Referring Physician: BERENICE TIERNEY Indications: [...] documented in this encounter Plan of Treatment Upcoming Encounters Date Type Department Care Team (Late st Contact Info) Description 12/17/2024 Hospital Encounter Heart and Vascular Unit Level 3 [place] [address] Julito Mora MD [facility] [place] [address] documented as of this encounter Visit Diagnoses Diagnosis Intermittent claudication Peripheral vascular disease, unspecified documented in this encounter Care Teams Foreclosure Specialist Relationship Specialty Start Date End Date Rosi Bower MD [address] [place] [address] [address] [place] [address] PCP - General Family Medicine 08/25/18 11/30/24 documented as of this encounter
--- OUTSIDE RECORDS SUMMARY | 2024-12-16 06:08 | XMS_ITS | Encounter Summary ---
Author [facility] [place] [address] Care Team Providers Care Veneer Department Manager Name Role Phone Mateo Waite DO Primary Care Provider [phone] Encounter Details Date Type Department Care Team (Late st Contact Info) Description 08/16/2018 Orders Only [place] [address] Mackenzie Leung CMA Intermittent claudication Social History Tobacco Use Types Packs/Day Years Used Date Smoking Tobacco: Never Assessed Sex and Gender Information Value Date Recorded Sex Assigned at Not on file Gender Identity Not on file Sexual Orientation Not on file documented as of this encounter Plan of Treatment Upcoming Encounters Date Type Department Care Team (Late st Contact Info) Description 12/17/2024 Hospital Encounter Heart and Vascular Unit Level 3 [place] [address] Juliot Mora MD [facility] [place] [address] documented as of this encounter Results * QUE, legs, multiple levels (08/25/2018 12:35 PM EDT) VB Text Report Department: Vascular Surgery Lab Patient: [id number] (MARY SANABRIA) CPT: 46718 ICD10: I73.9 Referring Physician: BERENICE TIERNEY ?? [...] unspecified documented in this encounter Care Teams Veneer Department Manager Relationship Specialty Start Date End Date Mateo Waite DO [address] [place] [address] PCP - General 10/14/10 08/24/18 documented as of this encounter
--- OUTSIDE RECORDS SUMMARY | 2024-12-16 06:08 | XMS_ITS | Encounter Summary ---
Author Organization [facility] Address [facility] [place] [address] Care Team Providers Care Obstetrician And Gynaecologist Name Role Phone Rosi Bower MD Primary Care Provider [phone] Encounter Details Date Type Department Care Team (Latest Contact Info) Description 09/20/2020 5:44 PM EDT - 09/20/2020 11:59 PM EDT Hospital [place] [phone] Discharge Disposition: Home Social History Tobacco Use [...] Vascular Unit Level 3 [place] [address] Julito Mora MD [facility] [place] [address] documented as of this encounter Procedures Procedure Name Priority Date/Time Associated Diagnosis Comments COVID-19 PCR Routine 09/20/2020 10:27 AM EDT documented in this encounter Results * COVID-19 PCR (09/20/2020 10:27 AM EDT) SARS-CoV-[address] Not Detect[address] [facility] Comment: This result should be [...] on the instructions for use provided by [employer] and additional guidance provided by CDC and FDA. Testing is performed in the Clinical Genomics and [facility] Laboratory within the Department of Pathology and Laboratory Medicine at [facility], certified under the Clinical Laboratory Improvement [...] fact sheets at the following FDA website: https://www.fda.gov/medical-devices/fwkuuqbrepz-mubogyb-6060-asglb-11-nvchfgezj- use-a jggccfyfpdiqk-zedpyyu-rkzageq/romxi-rfqhiormuvk-zdle SARS-CoV-[address] [facility] Specimen from nose (specimen) Other / Unknown 09/20/2020 10:27 AM EDT 09/20/2020 11:21 PM EDT Narrative Resulting Agency Comment Spec In Lab Dharmesh Edmondson MD MOLECULAR ORDERABL ES [facility] [place] [address] documented in this encounter Visit Diagnoses Not on filedocumented in this encounter Care Teams Obstetrician And Gynaecologist Relationship Specialty Start Date End Date Rosi Bower MD [address] [facility] [address] [place] [address] PCP - General Family Medicine 08/25/18 11/30/24 documented as of this encounter
--- OUTSIDE RECORDS SUMMARY | 2024-12-16 06:08 | XMS_ITS | Encounter Summary ---
Author Organization [facility] [place] [address] Care Team Providers Care Acoustical Tile Carpenters Supervisor Name Role Phone Ravindra, Mateo Walters DO Primary Care Provider [phone] Reason for Visit * Reason Onset Date Comments Other 08/18/2018 Encounter Details Date Type Department Care Team (Late st Contact Info) Description 08/18/2018 Telephone [place] [address] Anne Knox Other Social History Tobacco Use [...] Vascular Unit Level 3 [place] [address] Julito Mora MD [facility] [place] [address] documented as of this encounter Visit Diagnoses Not on filedocumented in this encounter Care Teams Acoustical Tile Carpenters Supervisor Relationship Specialty Start Date End Date Mateo Waite, DO [address] [place] [address] PCP - General 10/14/10 08/24/18 documented as of this encounter
--- OUTSIDE RECORDS SUMMARY | 2024-12-16 06:08 | XMS_ITS | Encounter Summary ---
Author Organization [facility] Address [facility] [place] [address] Care Team Providers Care Outside Machinist Name Role Phone None Primary Care Provider Unavailabl e Encounter Details Date Type Department Care Team (Late st Contact Info) Description 12/16/2024 Telephone Cardiology at [address] [phone] Nancy Salazar MD [facility] [place] [address] Social History Tobacco Use Types Packs/Day Years Used Date Smoking Tobacco: Former Smokeless Tobacco: Never Sex and Gender Information Value Date Recorded Sex Assigned at Not on file Gender Identity Not on file Sexual Orientation Not on file documented as of this encounter Miscellaneous Notes * Telephone Encounter - Nancy Salazar MD - 12/16/2024 4:02 AM EST Transfer Request Reason for call: chest pain HPI: Ms. Sanabria is a 74yo with a history of who presented with crushing chest pain when she woke up. She had an AL in 2018 (unclear which artery, [facility]). She woke up with severe chest pain, took nitro, and it improved. She called EMS and has been loaded with aspirin. She has been chest pain free at rest, but had crushing chest pain when she got up to go to the bathroom. She also received Plavix, heparin. Received IV magnesium. Vitals: 36.9, 98% sat on room air, HR 95, BP 136/42 Physical Exam: No pertinent findings Labs Troponin: 7 -> 6 Cr 1.0 Hgb and platelets: 13.5/167 ECG: NSR, inferior q waves Impression: Unstable angina in a patient with known CAD Plan - Continue aspirin, Plavix, heparin - SLN PRN chest pain - Transfer to [facility] (listing out to 12/17) Requested a call back if resting pain occurs and does not resolve with nitro. Nancy Salazar MD [facility], PGY6 #[id number] documented in this encounter Plan of Treatment Upcoming Encounters Date Type Department Care Team (Late st Contact Info) Description 12/17/2024 Hospital Encounter Heart and Vascular Unit Level 3 [place] [address] Julito Mora MD [facility] [place] [address] documented as of this encounter Visit Diagnoses Not on filedocumented in this encounter Care Teams Outside Machinist Relationship Specialty Start Date End Date None None PCP - General 12/01/24 documented as of this encounter
--- OUTSIDE RECORDS SUMMARY | 2024-12-16 06:08 | XMS_ITS | Encounter Summary ---
Author Organization [facility] [place] [address] Care Team Providers Care Housekeeping Aid Name Role Phone Mateo Waite DO Primary Care Provider [phone] Reason for Visit * Reason Onset Date Comments Other 08/19/2018 Encounter Details Date Type Department Care Team (Late st Contact Info) Description 08/19/2018 Telephone [place] [address] Anne Knox Other Social History [...] Vascular Unit Level 3 [place] [address] Julito Mora MD [facility] [place] [address] documented as of this encounter Visit Diagnoses Not on filedocumented in this encounter Care Teams Housekeeping Aid Relationship Specialty Start Date End Date Mateo Waite, [address] [place] [address] PCP - General 10/14/10 08/24/18 documented as of this encounter
--- OUTSIDE RECORDS SUMMARY | 2024-12-16 06:08 | XMS_ITS | Encounter Summary ---
Author Organization [facility] [place] [address] Care Team Providers Care Evaluation Advisor Name Role Phone Rosi Bower MD Primary Care Provider [phone] Reason for Visit * Consultation (Routine) - Specialty Diagnoses / Procedures Referred By Suzy dumont Referred To Contact Vascular Surgery Diagnoses Peripheral vascular disease, unspecified CLAUDICATION LOWER EXTREMITIES Rosi Bower MD [address] [place] [address] [facility] Vascular Surg [address] [address] Referral ID Status Reason Start Date Expiration Date V isits Requested Visits Authorized [id number] Consult, Test & Treat Connection Center PCP Updated and/or Approved 08/21/2018 02/18/2019 6 6 Encounter Details Date Type Department Care Team (Latest Contact Info) Description 08/25/2018 12:25 PM EDT - 08/25/2018 11:59 PM EDT Hospital Encounter [place] [phone] [place], [place] Intermittent claudication Discharge Disposition: Home Social [...] Vascular Unit Level 3 [place] [phone] Julito Mora MD [facility] [place] [address] documented as of this encounter Procedures Procedure Name Priority Date/Time Associated Diagnosis Comments QUE, LEGS, MULTIPLE LEVELS Routine 08/25/2018 12:35 PM EDT Intermittent claudication documented in this encounter Results * QUE, legs, multiple levels (08/25/2018 12:35 PM EDT) VB Text Report Department: Vascular Surgery Lab Patient: [id number] (ZHENMARY) CPT: 27186 ICD10: I73.9 Referring Physician: BERENICE TIERNEY ?? [...] unspecified documented in this encounter Care Teams Evaluation Advisor Relationship Specialty Start Date End Date Rosi Bower MD [address] [place] [address] PCP - General Family Medicine 08/25/18 11/30/24 documented as of this encounter
--- OUTSIDE RECORDS SUMMARY | 2024-12-16 06:08 | XMS_ITS | Encounter Summary ---
Author Organization [facility] Address [facility] [place] [address] Care Team Providers Care Soubrette Name Role Phone None Primary Care Provider Unavailabl e Encounter Details Date Type Department Care Team (Late st Contact Info) Description 12/16/2024 External [place] [phone] Social History Tobacco Use Types Packs/Day Years [...] Vascular Unit Level 3 [place] [address] Julito Mora MD [facility] [place] [address] documented as of this encounter Procedures Procedure Name Priority Date/Time Associated Diagnosis Comments MISC EXTERNAL CARDIOLOGY RESULT Routine 12/16/2024 4:55 AM EST documented in this encounter Results * External Cardiology Result (12/16/2024 4:55 AM EST) Anatomical Region Laterality Modality Other Historical Provider EXTERNAL CARDIOLO GY RESULT documented in this encounter Visit Diagnoses Not on filedocumented in this encounter Care Teams Soubrette Relationship Specialty Start Date End Date None None PCP - General 12/01/24 documented as of this encounter
[2024-12-16 06:44] LABS: PTT Activated 92.2 sec (20.6-30.2)
[2024-12-16] MEDS: Metoprolol 50 MG TAB PO ×2 (09:04→19:50)
[2024-12-16] MEDS: Aspirin 325 MG TAB PO (09:05)
[2024-12-16] MEDS: Atorvastatin 40 MG TAB 80 MG PO (09:05)
[2024-12-16] MEDS: Clopidogrel 75 MG TAB PO (09:05)
[2024-12-16] MEDS: Omeprazole 20 MG CAPCR PO (09:05)
[2024-12-16] MEDS: amLODIPine 5 MG TAB 10 MG PO (09:05)
[2024-12-16] MEDS: Losartan 50 MG TAB 100 MG PO (09:05)
[2024-12-16 10:40] LABS: PTT Activated 49.8 sec (20.6-30.2)
[2024-12-16] MEDS: Normal Saline Flush 10 ML SYR IVP ×2 (16:05→19:59)
[2024-12-16 16:52] LABS: Magnesium 1.5 mg/dL (1.8-2.4)
--- NOTE | 2024-12-16 17:30 | INITIAL_ITS ---
Care Management Initial Assmt Initial Assessment Reason for Hospitalization: chest pain Functional Status/Living Situation Patient Presentation: Yenny was lying in bed when CM met with her. She was polite and agreeable to conversation. Yenny was admitted today with chest pain. She has been accepted in transfer to [facility] [place] later today or tomorrow for a cardiac catheterization. Yenny lives alone in a mobile home in [facility]. . She has 5 children, 11 grandchildren and 11 great grandchildren. Two of her children live out of state but the rest are fairly local ([place] and [place]). Yenny is retired and does not receive any community services. Town of Residence: [facility] Resides with: Alone Significant Other/Family: Out of area (one son in [facility], one daughter in [place], the rest are local.) Natural Supports: family Employment Status: Retired Instrumental Activities of Daily Living (ADLs): Independent Physical Functioning/Mobility Assistive Device: none Advance Directives Advance Directives: Do you have an Advance Directive: N 12/13/23 09:21 AD On File at [facility]: N 12/13/23 09:21 Date Asked 12/16/24 12/16/24 05:54 AD Date Reviewed COLST On File at [facility] COLST Date Scanned Code Status Resuscitation Status Full Code Portal Pt does not currently have a portal and education provided: Yes Insurance Coverage/Financial Issues Insurance: [facility] Medicare replacement Care Team Visit Care Team Role Provider Type Polo Ureña NP Primary Care Provider NURSE PRACTITIONER Sugar Perera MD Emergency Provider [facility] STAFF PHYSICIAN Win Rodriguez MD Admit Provider [facility] STAFF PHYSICIAN Attending Provider Discharge Anticipated Barriers to Discharge: Bed availability Transportation: EMS Plan: Yenny has been accepted in transfer to [facility] for a cardiac catheterization and is waiting for a bed. She will transport via EMS and follow up with the facility providers and plan of care. Social Determinants of Health Screening Social Determinants of Health last assessed: 12/16/24 Will the Patient Participate in the Screening?: Yes Do you worry about having a steady place to live?: no Problems where you live: no known problems In the past 12 months, have you had to go without electric, gas, oil or water in your home?: no Have you or anyone in your house had to go without enough food to eat?: no Has lack of transportation kept you from medical appointments or from doing things needed for daily living?: no Has anyone in your life made you feel unsafe or unsupported?: no How hard is it for you to pay for the very basics like food, housing, medical care, and heating? Would you say it is:: Not hard at all Do you want help finding or keeping work or a job?: I do not need or want help If for any reason you need help with day-to-day activities such as bathing, preparing meals, shopping, managing finances, etc., do you get the help you need?: I get all the help I need How often do you feel lonely or isolated from those around you?: Never Do you speak a language other than Venezuelan at home?: No Does the patient want assistance with any of the above?: No PFSH All Active Problems (Updated 12/16/24 @ 05:46 by Win Rodriguez MD) Chest pain (Acute) Unstable angina (Acute) Right shoulder pain (Acute) Iron deficiency anemia (Acute) Right knee pain (Acute) Claudication of both lower extremities (Acute) Fatigue (Acute) Restless leg syndrome (Acute) Sensorineural hearing loss (SNHL) of both ears (Acute) Impacted cerumen, bilateral (Acute) Obesity (BMI 30-39.9) (Acute) Trigger finger, right middle finger (Acute) Right carpal tunnel syndrome (Chronic) Carotid stenosis (Chronic) History of tobacco use (Acute) CAD (coronary artery disease) (Chronic) Moderate aortic regurgitation (Chronic 04/09/15) echo. : stable x 03/2015/ -2017:stable Hyperlipidemia (Chronic 04/26/13) Essential hypertension (Chronic 10/24/13) Diabetes mellitus (Chronic 04/26/13) Ophtalmo. neg. 07/2016)/no nephro 2016 Depressive disorder (Chronic) Cataracts, both eyes (Chronic 08/24/17) [facility] Medical History Status post left heart catheterization (LHC) (~08/2018) 2 stents RCA. Normal vascular exam no lower extremity arterial occlusive disease/ [facility] Vascular lab. 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 Stenting x2 Abdominal hysterectomy (~1997) Family History Mother , 63 Diabetes Father , 80's Stroke Sister , 65 Neoplasm Sister , 80's Cancer Brother , 60's Heart disease Brother , 78 Diabetes Alcohol abuse Social History Smoking/Tobacco Use Status: Former Tobacco Use tobacco type: cigarettes Quit Date: 11/22/89 Pack-years: 40 Tobacco: How many years used: 30 Second Hand Exposure: Yes Smoking risk assessment performed?: Yes Alcohol Intake: never Drug use: Never Substance use type: does not use Caregiver/Support person: No Household members: none Housing: house Do you need help understanding health information?: Never current occupation: [employer] Pets and animals: No Sexually active: No Do you think of yourself as: straight/heterosexual Current gender identity: female What is your relationship status?: How often do you talk on the phone with friends or family?: three or more times per week How often do you get together with friends or relatives?: three or more times per week How often do you attend adventism or methodist services?: decline to answer Do you belong to any clubs or organized social groups?: no Panel score (0-1 are the most socially isolated patients): 1 What type of physical activity do you participate in: walking Duration: > 90 minutes/day Frequency: 5-6 times per week [place]/Christianity: Worship Special carolina needs: No Seatbelt use: sometimes Helmet use: No Drive intox or ride w/intox helper/driver: No Do you feel safe at home: Yes Additional Social history: Lives alone; daughter is with pt - unable to ask privately
[2024-12-16] MEDS: Insulin Aspart 300 UNITS/3 ML PEN SC (17:44)
[2024-12-16] MEDS: Pramipexole 0.25 MG TAB PO (19:50)
[2024-12-16] MEDS: Sertraline 50 MG TAB PO (19:51)
[2024-12-16] MEDS: Heparin in 0.45% NaCl 25,000 UNIT/250 ML BAG 10 UNIT IVINF (21:47)
[2024-12-16 22:35] LABS: PTT Activated 64.3 sec (20.6-30.2)
[2024-12-17] VITALS (32 sets, daily range): BP systolic 92–132; BP diastolic 47–80; PULSE 64–84; RESP 11–21; TEMP 36.5–36.7; O2SAT 91–93
[2024-12-17 06:40] LABS: PTT Activated 63.3 sec (20.6-30.2)
[2024-12-17] MEDS: Omeprazole 20 MG CAPCR PO (09:02)
[2024-12-17] MEDS: Losartan 50 MG TAB 100 MG PO (09:03)
[2024-12-17] MEDS: amLODIPine 5 MG TAB 10 MG PO (09:04)
[2024-12-17] MEDS: Aspirin E.C. 81 MG TABEC PO (09:05)
[2024-12-17] MEDS: Atorvastatin 40 MG TAB 80 MG PO (09:05)
[2024-12-17] MEDS: Clopidogrel 75 MG TAB PO (09:05)
[2024-12-17] MEDS: Normal Saline Flush 10 ML SYR IVP (09:15)
[2024-12-17] MEDS: Metoprolol 50 MG TAB PO (10:45)
--- NOTE | 2024-12-17 18:08 | W.PM.DS.N ---
Date of service: 12/17/24 Time of Service: 18:08 DS: Diagnosis Discharge Diagnosis (1) Chest pain: Status: Acute Discharge Plan Disposition Patient Disposition: Transfer-Acute Inpatient Care Specific Acute Inpt Facility: [facility] Condition: Fair Discharge Details Reason For Visit: CP // Chest pain // ED BOARDING Admit Date/Time: 12/16/24 06:05 Admit Provider: Win Rodriguez Attending Provider: Win Rodriguez Primary Care Provider: Polo Amaro Hospital Course Hospital Course: 74 female with h/o type 2 DM, former smoker, and CAD, s/p PA and stent x2 2017 who presented after an episode of substernal chest pain while resting, with some releif with nitroglycerine. She had recurrence of the pain after getting up walking to the bathroom, again improved with NTG. No acute EKG changes were seen and troponins were negative (7, 6, 6), but with the pattern of pain the case was reviewed with [facility] cardiology and she was accepted for transfer to [facility] accepted by Dr. Mora pending bed for non-emergent cardiac catheterization. She was loaded with clopidogrel and given aspirin and started on a heparin drip per cardiology recommedations. Her magnesium was low at 0.9, up to 1.5 after 2grams, and then given another 2 grams. She was admitted to the ICU for close observation. She did not have events on telemetry or recurrence of her chest pain prior to transfer. Her BNaP was mildly elevated at 370 on admission and she did not have signs of CHF. Her metformin and glpizide were held while inpatient pending catheterization and she was not given additional semaglutide. Chorthalidone was also held, and her dapagliflozin and losartan were continued. She was managed with sliding scale insulin. BP was not elevated while being observed. Home Meds and New Rx's Prescriptions: No Action ascorbic acid (vitamin C) 500 mg tablet 500 mg PO DAILY aspirin 81 mg tablet,delayed release (DR/EC) 81 mg PO DAILY omeprazole 20 mg capsule,delayed release(DR/EC) 20 mg PO DAILY Qty: 90 4RF (DME) Blood Glucose Test 1 EACH strip 1 ea Miscellaneous DAILY Qty: 100 Rx Instructions: [employer]ACH PLUS TEST STRIPS/ PT DOES NOT USE INSULIN. DIAGNOSIS CODE e11.9 ibuprofen 600 mg tablet 600 mg PO TID PRN (Reason: fever or pain) Qty: 60 3RF Rx Instructions: TAKE WITH FOOD acetaminophen 500 mg tablet 1,000 mg PO Q8H PRN (Reason: pain) Qty: 90 3RF nitroglycerin 0.4 mg tablet, sublingual See Rx Instructions .ROUTE .COMPLEX Qty: 25 3RF Dose Instruction: PLACE ONE TABLET UNDER THE TONGUE EVERY 5 MINUTES FOR UP TO 3 DOSES NEEDED FOR CHEST PAIN. IF CHEST PAIN STILL PERSISTS CONTACT 911 Rx Instructions: PLACE ONE TABLET UNDER THE TONGUE EVERY 5 MINUTES FOR UP TO 3 DOSES NEEDED FOR CHEST PAIN. IF CHEST PAIN STILL PERSISTS CONTACT 911 dapagliflozin propanediol 10 mg tablet 10 mg PO DAILY Qty: 90 4RF amlodipine 10 mg tablet 10 mg PO DAILY Qty: 7 0RF Rx Instructions: take one tablet daily atorvastatin [Lipitor] 80 mg tablet 80 mg PO DAILY Qty: 7 0RF chlorthalidone 25 mg tablet 25 mg PO DAILY Qty: 7 0RF ferrous sulfate 325 mg (65 mg iron) tablet 650 mg PO BID Qty: 14 0RF glipizide 10 mg tablet 10 mg PO BID Qty: 14 0RF losartan 100 mg tablet 100 mg PO DAILY Qty: 7 0RF Slow-Mag 71.5 mg tablet,delayed release (DR/EC) 71.5 mg PO BID Qty: 14 0RF metformin 1,000 mg tablet 1,000 mg PO BID Qty: 14 0RF metoprolol tartrate 50 mg tablet 50 mg PO BID Qty: 14 0RF Rx Instructions: 05-15-21 increased dose/ take one tablet twice a day pramipexole 0.25 mg tablet 0.25 mg PO QHS Qty: 7 0RF sertraline [Zoloft] 50 mg tablet 50 mg PO HS Qty: 7 0RF Ozempic 0.25 mg or 0.5 mg (2 mg/3 mL) pen injector 0.5 mg subcut QWEEK Qty: 3 0RF Rx Instructions: for 4 weeks Discharge Instructions Activity:: Activity as Tolerated Equipment/Supplies:: No Equipment Needed Diet:: Low Sodium DS: Summary Time Spent with Patient providing and/or coordinating discharge services: Greater than 30 minutes Status at Discharge Functional status at discharge: independent ambulation Overall status at discharge: patient is not back to baseline Mental Status: mental status grossly normal Speech and Movement: speech and movement normal Mood: congruent mood Affect: normal affect Quality:SDOH Health Related Social Needs: No Data to Display Exam Narrative Exam Narrative: Gen: Alert and oriented, NAD. HEENT atraumatic; neck supple w/o JVD' lungs clear; heart RRR w/o MRG; abdomen soft and NT; extremities w/o edema; Normal affect/mood. Psych Mental Status: mental status grossly normal Speech and Movement: speech and movement normal Mood: congruent mood Affect: normal affect DS: Data Vitals/I&O Vitals and I&O: Vital Signs Temperature 36.7 C 12/17/24 16:33 Temperature Source Temporal Artery Scan 12/17/24 16:33 Pulse 73 12/17/24 16:00 Pulse Rhythm Regular 12/16/24 01:53 Pulse Strength Normal 12/16/24 01:53 Pulse 75 12/17/24 16:01 Respiratory Rate 14 12/17/24 16:01 Respiratory Effort Normal 12/16/24 13:00 Respiratory Depth Normal 12/16/24 13:00 Respiratory Pattern Normal 12/16/24 13:00 Blood Pressure 127/67 12/17/24 16:00 Blood Pressure Mean 86 12/17/24 16:00 Blood Pressure Position Supine 12/16/24 13:00 Pulse Oximetry 92 12/17/24 07:02 Oxygen Delivery Method Room Air 12/17/24 16:33 Oxygen Flow Rate 0 12/17/24 16:33 Pain Level 0 12/17/24 11:28 Comment standing 12/16/24 07:20 Intake & Output 12/16/24 12/17/24 12/17/24 23:59 11:59 23:59 Intake Total 429.166 / 1841.216 Output Total 2175 / 2675 600 / 875 275 / 875 Balance -1745.834 / -833.784 -509 / -784 -275 / -784 Weight 75.8 kg 74.1 kg Intake: IV 179.166 / 1291.216 Oral 250 / 550 Output: Urine 2175 / 2675 600 / 875 275 / 875 Other: Urine Color Yellow Yellow Yellow Urine Appearance Clear Clear Clear Urine Odor Normal Normal Normal Comment Per ED report from CHRISTOPHER Wooten Data Completed and Pending Labs on day of discharge: Labs from last 24 hours 12/17/24 12/16/24 06:20 22:15 APTT 63.3 H 64.3 H PFSH All Active Problems (Updated 12/16/24 @ 05:46 by Win Rodriugez MD) Chest pain (Acute) Unstable angina (Acute) Right shoulder pain (Acute) Right knee pain (Acute) Claudication of both lower extremities (Acute) Fatigue (Acute) Restless leg syndrome (Acute) Sensorineural hearing loss (SNHL) of both ears (Acute) Impacted cerumen, bilateral (Acute) Obesity (BMI 30-39.9) (Acute) Trigger finger, right middle finger (Acute) Right carpal tunnel syndrome (Chronic) Carotid stenosis (Chronic) History of tobacco use (Acute) Iron deficiency anemia (Acute) CAD (coronary artery disease) (Chronic) Moderate aortic regurgitation (Chronic 04/09/15) echo. : stable x 03/2015/ -2016:stable Hyperlipidemia (Chronic 04/26/13) Essential hypertension (Chronic 10/24/13) Diabetes mellitus (Chronic 04/26/13) Ophtalmo. neg. 07/2016)/no nephro 2016 Depressive disorder (Chronic) Cataracts, both eyes (Chronic 08/24/17) [facility]; M[facility] Medical History Status post left heart catheterization (LHC) (~08/2018) 2 stents RCA. Normal vascular exam no lower extremity arterial occlusive disease[place] [facility] [place]. 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 Stenting x2 Abdominal hysterectomy (~1997) Family History Mother , 63 Diabetes Father , 80's Stroke Sister , 65 Neoplasm Sister , 80's Cancer Brother , 60's Heart disease Brother , 78 Diabetes Alcohol abuse Social History Smoking/Tobacco Use Status: Former Tobacco Use tobacco type: cigarettes Quit Date: 11/22/89 Pack-years: 40 Tobacco: How many years used: 30 Second Hand Exposure: Yes Smoking risk assessment performed?: Yes Alcohol Intake: never Drug use: Never Substance use type: does not use Caregiver/Support person: No Household members: none Housing: house Do you need help understanding health information?: Never 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 Pets and animals: No Sexually active: No Do you think of yourself as: straight/heterosexual Current gender identity: female What is your relationship status?: How often do you talk on the phone with friends or family?: three or more times per week How often do you get together with friends or relatives?: three or more times per week How often do you attend latter day or scientology services?: decline to answer Do you belong to any clubs or organized social groups?: no Panel score (0-1 are the most socially isolated patients): 1 What type of physical activity do you participate in: walking Duration: > 90 minutes/day Frequency: 5-6 times per week [place]/Hindu: Mandaen Special carolina needs: No Seatbelt use: sometimes Helmet use: No Drive intox or ride w/intox trailer tank truck driver: No Do you feel safe at home: Yes Additional Social history: Lives alone; daughter is with pt - unable to ask privately Time Spent with Patient Time Spent with Patient: <45 minutes Time was spent: preparing to see the patient(eg.review tests), obtaining and/or reviewing separately otained hiistory, ordering medications,tests, procedures, referring, communicating with other health critical care paramedic, indepentently interpreting results, counseling the patient and care coordination
--- NOTE | 2024-12-17 19:01 | CMDISCH_ITS ---
Date of service: 12/17/24 Time of Service: 19:01 LACE Index Scoring Tool Questions: Length of Stay (in days): 1 Was the patient admitted via the E.D.?: Yes Comorbidities: Previous M.I. and Diabetes w/o Complication E.D. Visits: 1 Answers: Total Score: 7 Risk of Readmission: Low Risk Care Management Discharge Plan Reason for Hospitalization: chest pain Discharge Plan: Yenny will be transferred to [facility] for a cardiac cath. She will follow up with the facility providers and plan of care and transport via EMS coordinated by the nursing supervisor paint. Patient/Family Education Needs: expectations, limitations Services Needed at Discharge: Transportation SDOH Health Related Social Needs: No Data to Display
== END 2024-12-17 19:10 | disposition short-term general hospital (02) | DRG 313 ==
LOC: ER 12-16 05:54 → EDHOLD 12-16 12:53 → ICU 12-17 13:15 → EDHOLD 12-18 09:14
PROVIDERS: Family Medicine; Student in an Organized Health Care Education/Training Program; Admitting Provider General Practice; Emergency Provider Student in an Organized Health Care Education/Training Program; PCP Nurse Practitioner Family; Visit Provider General Practice
DX: R07.89 Other chest pain (principal); I25.10 Atherosclerotic heart disease of native coronary artery without angina pectoris; Z95.5 Presence of coronary angioplasty implant and graft; I25.2 Old myocardial infarction; D50.9 Iron deficiency anemia, unspecified; G25.81 Restless legs syndrome; E83.42 Hypomagnesemia; H90.3 Sensorineural hearing loss, bilateral; I10 Essential (primary) hypertension; E11.9 Type 2 diabetes mellitus without complications; I35.1 Nonrheumatic aortic (valve) insufficiency; F32.A Depression, unspecified; E66.9 Obesity, unspecified; I87.2 Venous insufficiency (chronic) (peripheral); Z96.652 Presence of left artificial knee joint; Z87.891 Personal history of nicotine dependence; Z79.85 Long-term (current) use of injectable non-insulin antidiabetic drugs; Z79.84 Long term (current) use of oral hypoglycemic drugs; Z68.29 Body mass index [BMI] 29.0-29.9, adult
CPT/HCPCS: 00123; 36415; 80053; 83690; 93005; 96365; 96366; 99291; 71045; 83735; 83880; 84484; 85025; 85610; 85730; 93010; 99222; 99239; J1644; J1815; J3475

== ENCOUNTER 2025-01-02 03:28 | Outpatient (CLI) | payer MEDICARE, SELFPAY ==
[2025-01-02 12:34] LABS: ALT 50 U/L (14-59); AST 23 U/L (15-37); Albumin 3.9 g/dL (3.4-5.0); Alkaline Phosphatase 95 U/L (46-116); Anion Gap 9.7 mmol/L (3-11); BUN 25 mg/dL (7-18); Bilirubin, Total 0.35 mg/dL (0.2-1.0); CO2 25.3 mmol/L (21.0-32.0); Calcium 9.8 mg/dL (8.5-10.1); Chloride 108 mmol/L (98-107); Estimated GFR 58.75 (mL/min/1.73m2); Glucose 167 mg/dL (74-106); Potassium 4.2 mmol/L (3.5-5.1); Sodium 143 mmol/L (136-145); Total Protein 7.7 g/dL (6.4-8.2)
[2025-01-02 12:43] LABS: Hemoglobin A1C 7.1 % (<5.7)
[2025-01-06 09:59] LABS: Apolipoprotein B, Serum 83 mg/dL (48-124); Beta VLDL Cholesterol Not Detected mg/dL (<15); Beta VLDL Triglycerides Not Detected mg/dL (<15); Cholesterol, Total, CDC 159 mg/dL; Chylomicron Cholesterol Not Detected; Chylomicron Triglycerides Not Detected; HDL Cholesterol, CDC 41 mg/dL (>=50); LDL Cholesterol 88 mg/dL; LDL Triglycerides 42 mg/dL (<=50); Lp(a) Cholesterol <5 mg/dL (<5); LpX Not detected; Triglycerides, CDC 166 mg/dL; VLDL Cholesterol 30 mg/dL (<30); VLDL Triglycerides 98 mg/dL (<120)
== END 2025-01-02 03:29 | disposition home or self-care (01) ==
LOC: LOS 03:28
PROVIDERS: PCP Nurse Practitioner Family; Visit Provider Nurse Practitioner Family
DX: E78.5 Hyperlipidemia, unspecified (principal); E11.9 Type 2 diabetes mellitus without complications
CPT/HCPCS: 36415; 80053; 80061; 82172; 82664; 83036

== ENCOUNTER 2025-01-26 14:20 | Outpatient (RCR) | payer MEDICARE, SELFPAY | END 2025-02-19 23:59 | disposition home or self-care (01) | LOC: CR 14:20 | PROVIDERS: PCP Nurse Practitioner Family; Visit Provider Internal Medicine Cardiovascular Disease ==

== ENCOUNTER 2025-03-21 08:20 | Outpatient (RCR) | payer MEDICARE, MEDICAID, SELFPAY ==
--- NOTE | 2025-03-02 10:45 | RT.EKG_ITS ---
APPROVED REPORT Exam: Resting ECG Reason for Exam: cardiac rehab intake Patient Location: O HR:83 bpm ECG Measurements Heart Rate 83 AXIS VT 185 P -2 QRSd 84 QRS 24 QT 371 T 72 QTc 436 Conclusion Sinus rhythm...normal P axis, V-rate 50- 99 Normal Electrocardiogram
== END 2025-03-21 23:59 | disposition home or self-care (01) ==
LOC: CR 08:20
PROVIDERS: PCP Nurse Practitioner Family; Visit Provider Internal Medicine Cardiovascular Disease
DX: I25.10 Atherosclerotic heart disease of native coronary artery without angina pectoris (principal); Z51.89 Encounter for other specified aftercare
CPT/HCPCS: S9472

== ENCOUNTER 2025-04-17 02:40 | Outpatient (CLI) | payer MEDICARE, SELFPAY ==
[2025-04-17 12:54] LABS: ALT 34 U/L (14-59); AST 27 U/L (15-37); Albumin 3.8 g/dL (3.4-5.0); Alkaline Phosphatase 69 U/L (46-116); Anion Gap 7.6 mmol/L (3-11); BUN 20 mg/dL (7-18); Bilirubin, Total 0.4 mg/dL (0.2-1.0); CO2 27.4 mmol/L (21.0-32.0); CREATININE 0.8 mg/dL (0.55-1.02); Calcium 9.3 mg/dL (8.5-10.1); Chloride 107 mmol/L (98-107); Estimated GFR 76.79 (mL/min/1.73m2); Glucose 127 mg/dL (74-106); Potassium 4.1 mmol/L (3.5-5.1); Sodium 142 mmol/L (136-145); Total Protein 6.9 g/dL (6.4-8.2)
[2025-04-20 15:49] LABS: Apolipoprotein B, Serum 65 mg/dL (48-124); Beta VLDL Cholesterol Not Detected mg/dL (<15); Beta VLDL Triglycerides Not Detected mg/dL (<15); Cholesterol, Total, CDC 130 mg/dL; Chylomicron Cholesterol Not Detected; Chylomicron Triglycerides Not Detected; HDL Cholesterol, CDC 39 mg/dL (>=50); LDL Cholesterol 61 mg/dL; LDL Triglycerides 35 mg/dL (<=50); Lp(a) Cholesterol <5 mg/dL (<5); LpX Not detected; Triglycerides, CDC 150 mg/dL; VLDL Cholesterol 30 mg/dL (<30); VLDL Triglycerides 92 mg/dL (<120)
== END 2025-04-17 02:41 | disposition home or self-care (01) ==
LOC: LOS 02:40
PROVIDERS: PCP Nurse Practitioner Family; Visit Provider Nurse Practitioner Family
DX: E78.5 Hyperlipidemia, unspecified (principal)
CPT/HCPCS: 36415; 80053; 80061; 82172; 82664

== ENCOUNTER 2025-04-20 08:27 | Outpatient (RCR) | payer MEDICARE, MEDICAID, SELFPAY | END 2025-04-21 23:59 | disposition home or self-care (01) | LOC: CR 08:27 | PROVIDERS: PCP Nurse Practitioner Family; Visit Provider Internal Medicine Cardiovascular Disease | DX: I25.10 Atherosclerotic heart disease of native coronary artery without angina pectoris (principal); Z51.89 Encounter for other specified aftercare | CPT/HCPCS: S9472 ==

== ENCOUNTER 2025-05-18 08:00 | Outpatient (RCR) | payer MEDICARE, MEDICAID, SELFPAY | END 2025-05-21 23:59 | disposition home or self-care (01) | LOC: CR 08:00 | PROVIDERS: PCP Nurse Practitioner Family; Visit Provider Internal Medicine Cardiovascular Disease | DX: I25.10 Atherosclerotic heart disease of native coronary artery without angina pectoris (principal); Z95.5 Presence of coronary angioplasty implant and graft; Z51.89 Encounter for other specified aftercare | CPT/HCPCS: S9472 ==

== ENCOUNTER 2025-06-20 09:44 | Outpatient (RCR) | payer MEDICARE, MEDICAID, SELFPAY | END 2025-06-21 23:59 | disposition home or self-care (01) | LOC: CR 09:44 | PROVIDERS: PCP Nurse Practitioner Family; Visit Provider Internal Medicine Cardiovascular Disease | DX: Z51.89 Encounter for other specified aftercare (principal); Z95.5 Presence of coronary angioplasty implant and graft; I25.2 Old myocardial infarction; I25.10 Atherosclerotic heart disease of native coronary artery without angina pectoris | CPT/HCPCS: S9472 ==

== ENCOUNTER 2025-07-06 08:08 | Day surgery (SDC) | payer MEDICARE, MEDICAID, SELFPAY ==
--- NOTE | 2025-07-06 06:22 | W.ANESPRE ---
General Info Date of Service Date Performed: 07/06/25 Height: 5 ft 2 in Weight: 66.338 kg Body Mass Index (BMI): 26.7 Surgical Procedure: Operation Date: 07/06/25 11:10 Proposed Procedure Side Surgeon p Cataract Extraction with IOL Implant Right Elvin Lizarraga MD Meds Allergies and Home Medications Allergies Allergy/AdvReac Type Severity Reaction Status Date / Time hydrochlorothiazide AdvReac Mild GI upset Verified 07/06/25 09:14 lisinopril AdvReac Mild cough Verified 07/06/25 09:14 naproxen AdvReac Mild Itching Verified 07/06/25 09:14 oxycodone HCl (From Percocet) AdvReac Mild n and v Verified 07/06/25 09:14 tetracycline AdvReac Mild G[set Verified 07/06/25 09:14 Home Medication ?Medication ?Instructions ?Recorded blood sugar diagnostic (Blood #100 strips 02/12/17 Glucose Test strips) ascorbic acid (vitamin C) 500 mg 500 mg PO DAILY 09/12/19 tablet aspirin 81 mg tablet,delayed 81 mg PO DAILY 09/09/20 release ibuprofen 600 mg tablet 600 mg PO TID PRN fever or pain 03/05/23 #60 tabs acetaminophen 500 mg tablet 1,000 mg (2 x 500 mg) PO Q8H PRN 12/29/23 pain #90 tabs atorvastatin 80 mg tablet (Lipitor) 80 mg PO DAILY #7 tabs 08/25/24 clopidogrel 75 mg tablet 75 mg PO DAILY 12/29/24 nitroglycerin 0.4 mg sublingual See Rx Instructions .Route 02/02/25 tablet .COMPLEX #25 tabs omeprazole 20 mg capsule,delayed 20 mg PO DAILY #90 caps 02/07/25 release ezetimibe 10 mg tablet (Zetia) 10 mg PO DAILY #90 tabs 03/05/25 magnesium chloride 71.5 mg 71.5 mg PO BID #180 tabs 03/05/25 (magnesium chloride) tablet,delayed release (Slow-Mag) metoprolol succinate 100 mg 100 mg PO QDAY #90 tabs 04/12/25 tablet,extended release 24 hr amlodipine 10 mg tablet 10 mg PO DAILY #90 tabs 06/06/25 tirzepatide 7.5 mg/0.5 mL 7.5 mg (0.5 mL) subcut QWEEK #2 mL 06/11/25 subcutaneous pen injector dapagliflozin propanediol 10 mg 10 mg PO DAILY #90 tabs 06/15/25 tablet ferrous sulfate 325 mg (65 mg 650 mg (2 x 325 mg (65 mg iron)) 06/15/25 iron) tablet PO BID #360 tabs losartan 100 mg tablet 100 mg PO DAILY #90 tabs 06/15/25 metformin 1,000 mg tablet 1,000 mg PO BID #180 tabs 06/15/25 sertraline 50 mg tablet (Zoloft) 50 mg PO HS #90 tab-caps 06/20/25 pramipexole 0.25 mg tablet 0.25 mg PO QHS #90 tabs 06/26/25 Current Visit Medications: Current Medications Generic Name Dose Route Start Last Admin Trade Name Freq PRN Reason Stop Dose Admin Acetaminophen 1,000 mg 07/06/25 06:05 Acetaminophen 500 Mg Tab PO 08/05/25 06:04 Q4H PRN PRN Balanced Salt Solution 500 ml 07/06/25 06:05 Balanced Salt Soln.-Plus 500 Ml Bag OP 08/05/25 06:04 DIRECTED [facility] Miscellaneous Medication 0 ml 07/06/25 06:00 Prednisolone 1%, Moxifloxacin 0.5%, Bromfenac 0.09% 5.6ml Btl OD 08/05/25 05:59 DIRECTED [facility] Miscellaneous Medication 0 ml 07/06/25 06:00 Tropicam./Phenyleph. (1/2.5%) 5 Ml Btl OD 08/05/25 05:59 DIRECTED [facility] Tetracaine HCl 0 ml 07/06/25 06:00 Tetracaine 0.5% 4 Ml Btl OD 08/05/25 05:59 DIRECTED [facility] PFSH Active Problems Active Problems: Problem Status Onset Code Posterior subcapsular age-related cataract, right eye Acute H25.041 Nuclear age-related cataract, right eye Acute H25.11 Unstable angina Acute I20.0 Right shoulder pain Acute M25.511 Iron deficiency anemia Acute D50.9 Right knee pain Acute M25.561 Claudication of both lower extremities Acute I73.9 Fatigue Acute R53.83 Restless leg syndrome Acute G25.81 Sensorineural hearing loss (SNHL) of both ears Acute H90.3 Impacted cerumen, bilateral Acute H61.23 Obesity (BMI 30-39.9) Acute E66.9 Trigger finger, right middle finger Acute M65.331 Right carpal tunnel syndrome Chronic G56.01 Carotid stenosis Chronic I65.29 History of tobacco use Acute Z87.891 CAD (coronary artery disease) Chronic I25.10 Moderate aortic regurgitation Chronic 04/09/15 I35.1 Hyperlipidemia Chronic 04/26/13 E78.5 Essential hypertension Chronic 10/24/13 I10 Diabetes mellitus Chronic 04/26/13 E11.9 Depressive disorder Chronic F32.9 Cataracts, both eyes Chronic 08/24/17 H26.9 Medical History Medical History Status post left heart catheterization (LHC) (~08/2018) 2 stents RCA. Normal vascular exam no lower extremity arterial occlusive disease/ [facility] Vascular lab. 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 Stenting x2 Abdominal hysterectomy (~1997) Tobacco Smoking/Tobacco Use Status: Former Tobacco Use Passive smoking exposure: No Second hand exposure: Yes Alcohol Alcohol Intake: never Substance Use Substance use: Never Substance use type: does not use Vital Signs and Lab Results Vital Signs Most Recent Vital Signs in EMR: Temp Pulse Resp BP Pulse Ox 36.6 C 87 20 142/61 H 98 07/06/25 09:05 07/06/25 09:05 07/06/25 09:05 07/06/25 09:05 07/06/25 09:05 Anesthesia Assessment and Plan Anesthesia History Personal History: No History of Anesthesia Complications Family History: No Family History of Anesthesia Complications Exercise Tolerance Exercise Tolerance: Metabolic Equivalents>4 Cardiac & Pulmonary Exam Cardiac Exam: Normal S1/S2 Heart Sounds Pulmonary Exam: Clear Bilateral Breath Sounds Implantable Cardiac Device Does patient have a Pacemaker or an ICD?: No Airway Exam Known Difficult Airway: No Mallampati Class: 3 Mouth Opening: Normal (> 3cm) Thyromental Distance: Greater than 3 cm Neck Range of Motion: Full ROM Neck Circumference: Normal Teeth Condition: Edentulous ASA Classification ASA Score: ASA 3 Emergency Case?: No NPO Status NPO Status: NPO Clears >2 hours, Solids >8 hours Anesthesia Plan Resuscitation Status: Full Code Anesthesia Technique: MAC Anesthesia Airway Planned: Natural Airway Monitors Used: Standard Monitors Preoperative Comments:: 75 yo female for cataract removal. Sig PMHx: HTN (amlodipine, losartan, metoprolol), unstable angina (stents x 4. nitro - rare use, plavix, asa), claudication, carotid stenosis, RLS, depression, DM (dapagliflozin, metformin, tirzepatide). former smoker. Carotid US: 50-69% stenosis L ICA. ECHO: LVEF 55-60%, mild AR. ECG: sinus.
[2025-07-06 09:04] VITALS: BMI 26.7
[2025-07-06 09:05] VITALS: BP 142/61; PULSE 87; RESP 20; TEMP 36.6; O2SAT 98
[2025-07-06] MEDS: Tropicam./Phenyleph. (1/2.5%) 5 ML BTL OD ×3 (09:16→09:27)
[2025-07-06] MEDS: Povidone-Iodine Ophth 30 ML BTL (10:20)
[2025-07-06] MEDS: Tetracaine 0.5% 4 ML BTL OD (10:20)
[2025-07-06] MEDS: Lidocaine 1% Pres-Free 5 ML VIAL (10:27)
[2025-07-06] MEDS: Phenylephrine/Lidocaine (15/10) MG/ML 1 ML VIAL (10:29)
[2025-07-06] MEDS: Duovisc Viscoelastic System EACH 1 EACH (10:30)
[2025-07-06] MEDS: Balanced Salt Soln.-PLUS 500 ML BAG OP (10:31)
[2025-07-06] MEDS: Prednisolone 1%, Moxifloxacin 0.5%, Bromfenac 0.09% 5.6ML BTL OD (10:38)
[2025-07-06] MEDS: Moxifloxacin-PF 1 MG/ML VIAL (10:38)
[2025-07-06 10:42] VITALS: BP 144/57; PULSE 86; RESP 16; TEMP 36.7; O2SAT 99
--- NOTE | 2025-07-06 10:45 | PDOC.DSDIS_ITS ---
Date of service: 07/06/25 Discharge Plan Disposition Patient Disposition: Home Discharge Details Attending Provider: Elvin Lizarraga Primary Care Provider: Polo Amaro Home Meds and New Rx's Prescriptions: No Action ascorbic acid (vitamin C) 500 mg tablet 500 mg PO DAILY sertraline [Zoloft] 50 mg tablet 50 mg PO HS Qty: 90 4RF clopidogrel 75 mg tablet 75 mg PO DAILY Patient Comments: TAKE ONE TABLET BY MOUTH EVERY DAY aspirin 81 mg tablet,delayed release (DR/EC) 81 mg PO DAILY Slow-Mag 71.5 mg tablet,delayed release (DR/EC) 71.5 mg PO BID Qty: 180 4RF ezetimibe [Zetia] 10 mg tablet 10 mg PO DAILY Qty: 90 4RF Rx Instructions: [place] [facility] [place]op[place] succinate 100 mg tablet extended release 24 hr 100 mg PO QDAY Qty: 90 4RF (DME) Blood Glucose Test 1 EACH strip 1 ea Miscellaneous DAILY Qty: 100 Rx Instructions: APPLICATION INTEGRATION ARCHITECT PLUS TEST STRIPS/ PT DOES NOT USE INSULIN. DIAGNOSIS CODE e11.9 ibuprofen 600 mg tablet 600 mg PO TID PRN (Reason: fever or pain) Qty: 60 3RF Rx Instructions: TAKE WITH FOOD acetaminophen 500 mg tablet 1,000 mg PO Q8H PRN (Reason: pain) Qty: 90 3RF atorvastatin [Lipitor] 80 mg tablet 80 mg PO DAILY Qty: 7 0RF nitroglycerin 0.4 mg tablet, sublingual See Rx Instructions .ROUTE .COMPLEX Qty: 25 3RF Dose Instruction: PLACE ONE TABLET UNDER THE TONGUE EVERY 5 MINUTES FOR UP TO 3 DOSES NEEDED FOR CHEST PAIN. IF CHEST PAIN STILL PERSISTS CONTACT 911 Rx Instructions: PLACE ONE TABLET UNDER THE TONGUE EVERY 5 MINUTES FOR UP TO 3 DOSES NEEDED FOR CHEST PAIN. IF CHEST PAIN STILL PERSISTS CONTACT 911 omeprazole 20 mg capsule,delayed release(DR/EC) 20 mg PO DAILY Qty: 90 4RF amlodipine 10 mg tablet 10 mg PO DAILY Qty: 90 4RF Rx Instructions: take one tablet daily tirzepatide 7.5 mg/0.5 mL pen injector 7.5 mg subcut QWEEK Qty: 2 0RF Rx Instructions: for 4 weeks metformin 1,000 mg tablet 1,000 mg PO BID Qty: 180 4RF losartan 100 mg tablet 100 mg PO DAILY Qty: 90 4RF dapagliflozin propanediol 10 mg tablet 10 mg PO DAILY Qty: 90 4RF ferrous sulfate 325 mg (65 mg iron) tablet 650 mg PO BID Qty: 360 4RF pramipexole 0.25 mg tablet 0.25 mg PO QHS Qty: 90 4RF Discharge Instructions Stand Alone Forms: DSU Post-Op Cataract, Jason Bah (DSU) Discharge Orders Discharge Orders: Discharge Order (Routine); Ordered 07/06/25 Ordered By: Elvin Lizarraga DS: Diagnosis Discharge Diagnosis (1) Posterior subcapsular age-related cataract, right eye: Status: Resolved (2) Nuclear age-related cataract, right eye: Status: Resolved
--- NOTE | 2025-07-06 10:48 | ROE_ITS ---
Operative Note Operative Note PRE-OP DIAGNOSIS: Nuclear/posterior subcapsular cataract, right eye POST-OP DIAGNOSIS: same PROCEDURE: Cataract extraction using phacoemulsification with intraocular lens implant, right eye SURGEON: Elvin Lizarraga ANESTHESIA TYPE: Local By Surgeon and MAC Refer to Anesthesia Record ESTIMATED BLOOD LOSS: 0 PATHOLOGY: none sent COMPLICATIONS: None Patient was transported to: same day Patient's condition: stable Implants: Manuel Clareon [id number] Indications: Progressive decreased vision due to cataract, right eye Procedure Description: CATARACT SURGERY OPERATIVE REPORT PREOPERATIVE DIAGNOSIS: Nuclear/posterior subcapsular cataract, right eye POSTOPERATIVE DIAGNOSIS: Same OPERATION: Cataract extraction using phacoemulsification with posterior chamber intraocular lens implant, right eye. IOL: IOL Executive Creative Director/Model: Manuel Clareon [id number] IOL Power: + 21.5 diopters IOL Serial Number: [id number] Optic Diameter: 6.0mm Haptic/Overall Diameter: 13.0mm PHACO INFO: Manuel fotopediaurion Vision System with OZil and Active Fluidics Cumulative Dispersed Energy (CDE): 9.29 seconds SURGEON: Elvin Lizarraga MD, RADHA ANESTHESIA: Monitored Anesthesia Care (MAC), with local sub-tenon's anesthetic infiltration COMPLICATIONS: None SPECIMENS: None INDICATIONS FOR PROCEDURE: The patient is a 75-year-old lady with history of diminished visual acuity in her right eye secondary to the development of nuclear/posterior subcapsular cataract. She is significantly symptomatic that she desires cataract surgery in attempt to improve and maximize her vision. The option of cataract surgery was offered to the patient and she wished to proceed. PROCEDURE: The correct surgical eye was identified and marked as the right eye and the pupil was dilated in the preoperative area using mydriatics and cycloplegics. The dilated pupil size was 6.0 mm. The patient elected to proceed without oral sedation. The patient was brought to the operating room where cardiopulmonary monitoring was instituted and surgical time-out was performed, confirming the correct operative eye and IOL power. Topical anesthesia was administered and ophthalmic povidone-iodine 5% was instilled into the conjunctival fornices. The vida-ocular area was prepped with Betadine 10% solution and draped in the usual sterile fashion for intraocular surgery, including an aperture drape. A Tegaderm transparent film dressing was cut in half and used to cover the lashes and lid margins. Care was taken to sequester the lashes and lid margins under the Tegaderm dressing. A lid speculum was placed between the lids of the operative eye and the Manuel LuxOR Revalia operating microscope was maneuvered into position. Teo scissors were then used to make a conjunctival buttonhole approximately 6mm posterior to the limbus in the inferonasal quadrant. Blunt dissection was carried out to expose bare sclera, and a blunt-tipped sub-tenon?s anesthesia cannula was introduced and passed posteriorly along the globe where non- preserved plain lidocaine was injected into posterior sub-Tenon?s space. A sideport knife was used to make a paracentesis port. Intraocular phenylephrine/lidocaine was injected into the anterior chamber. The anterior chamber was then filled with viscoelastic. A keratome knife was used to construct a two--plane clear corneal tunnel extending 2.0mm into clear cornea. A flap was raised on the anterior capsule and capsulorhexis forceps were used to complete a continuous curvilinear capsulorhexis of 5.5 mm. Balanced salt solution was then used to perform cortical cleaving hydrodissection and nuclear hydrodelineation until the lens could be freely r otated within the capsular bag. The lens nucleus was then disassembled and removed within the capsular bag and iris plane using phacoemulsification. Residual cortical material was removed using the I/A handpiece. The posterior capsule was carefully polished to remove as much residual lens epithelial cells as safely possible. The capsular bag was then inflated and the anterior chamber deepened with cohesive viscoelastic. The lens implant described above was inserted into the capsular bag using the Manuel Autonome Injector. A Kuglen hook was used to dial the IOL into position. Residual viscoelastic was then removed first from posterior to the IOL, then from the anterior chamber using the I/A handpiece. The lens implant was noted to center nicely within the capsular bag. The incisions were stromally hydrated, and the anterior chamber was reformed using BSS. Then 0.5cc of moxifloxacin 1.0mg/ml were injected into the capsular bag and anterior chamber. The incisions were checked with a Weck spear and found to be secure. Several drops of ophthalmic povidone-iodine 5% were then applied to the eye followed by two drops of combination steroid/NSAID/antibiotic solution. The drapes were removed and a clear plastic protective eye shield was placed over the eye. The patient was then returned to Same Day Surgery in stable condition. Date of Procedure: 07/06/25
--- NOTE | 2025-07-06 10:57 | W.ANESPOSTOP ---
Postoperative Evaluation Date, Time and Location Date Performed: 07/06/25 Time Performed: 10:57 Patient Location: Day Surgery Unit Vital Signs Most Recent Imported Vital Signs: Most Recent Vital Signs Temp Pulse Resp BP Pulse Ox 36.7 C 86 16 144/57 H 99 07/06/25 10:42 07/06/25 10:42 07/06/25 10:42 07/06/25 10:42 07/06/25 10:42 Pain Score Most Recent Pain Score: Most Recent Pain Score Pain Level 0 07/06/25 10:42 Assessment Mental Status: Awake (Alert & Oriented to Patient Baseline) Airway and Respiratory Function: Patent airway with normal (patient baseline) respiratory exam Cardiovascular Function: Hemodynamically Stable Hydration Status: Adequately Hydrated Nausea & Vomiting: No Nausea or Vomiting Pain: Pt. Denies Any Pain Peripheral Nerve Block: Patient did not receive a nerve block
== END 2025-07-06 11:06 | disposition home or self-care (01) ==
LOC: SUR 08:08
PROVIDERS: PCP Nurse Practitioner Family; Visit Provider Ophthalmology
PROC: (CPT 66984; principal; 2025-07-06 11:00)
DX: H25.11 Age-related nuclear cataract, right eye (principal); H25.041 Posterior subcapsular polar age-related cataract, right eye
CPT/HCPCS: 66984; 00123; V2632; J2003

== ENCOUNTER 2025-07-20 07:13 | Day surgery (SDC) | payer MEDICARE, MEDICAID, SELFPAY ==
[2025-07-20 07:15] VITALS: BP 119/55; PULSE 89; RESP 18; TEMP 36.4; O2SAT 99
[2025-07-20] MEDS: Tropicam./Phenyleph. (1/2.5%) 5 ML BTL OS ×3 (07:35→07:44)
--- NOTE | 2025-07-20 08:01 | W.ANESPRE ---
General Info Date of Service Date Performed: 07/20/25 Height: 5 ft 2 in Weight: 64.3 kg Body Mass Index (BMI): 25.9 Surgical Procedure: Operation Date: 07/20/25 09:40 Proposed Procedure Side Surgeon p Cataract Extraction with IOL Implant Left Elvin Lizarraga MD Meds Allergies and Home Medications Allergies Allergy/AdvReac Type Severity Reaction Status Date / Time hydrochlorothiazide AdvReac Mild GI upset Verified 07/20/25 07:29 lisinopril AdvReac Mild cough Verified 07/20/25 07:29 naproxen AdvReac Mild Itching Verified 07/20/25 07:29 oxycodone HCl (From Percocet) AdvReac Mild n and v Verified 07/20/25 07:29 tetracycline AdvReac Mild G[set Verified 07/20/25 07:29 Home Medication ?Medication ?Instructions ?Recorded blood sugar diagnostic (Blood #100 strips 02/12/17 Glucose Test strips) ascorbic acid (vitamin C) 500 mg 500 mg PO DAILY 09/12/19 tablet aspirin 81 mg tablet,delayed 81 mg PO DAILY 09/09/20 release ibuprofen 600 mg tablet 600 mg PO TID PRN fever or pain 03/05/23 #60 tabs acetaminophen 500 mg tablet 1,000 mg (2 x 500 mg) PO Q8H PRN 12/29/23 pain #90 tabs atorvastatin 80 mg tablet (Lipitor) 80 mg PO DAILY #7 tabs 08/25/24 clopidogrel 75 mg tablet 75 mg PO DAILY 12/29/24 nitroglycerin 0.4 mg sublingual See Rx Instructions .Route 02/02/25 tablet .COMPLEX #25 tabs omeprazole 20 mg capsule,delayed 20 mg PO DAILY #90 caps 02/07/25 release ezetimibe 10 mg tablet (Zetia) 10 mg PO DAILY #90 tabs 03/05/25 magnesium chloride 71.5 mg 71.5 mg PO BID #180 tabs 03/05/25 (magnesium chloride) tablet,delayed release (Slow-Mag) metoprolol succinate 100 mg 100 mg PO QDAY #90 tabs 04/12/25 tablet,extended release 24 hr amlodipine 10 mg tablet 10 mg PO DAILY #90 tabs 06/06/25 tirzepatide 7.5 mg/0.5 mL 7.5 mg (0.5 mL) subcut QWEEK #2 mL 06/11/25 subcutaneous pen injector dapagliflozin propanediol 10 mg 10 mg PO DAILY #90 tabs 06/15/25 tablet ferrous sulfate 325 mg (65 mg 650 mg (2 x 325 mg (65 mg iron)) 06/15/25 iron) tablet PO BID #360 tabs losartan 100 mg tablet 100 mg PO DAILY #90 tabs 06/15/25 metformin 1,000 mg tablet 1,000 mg PO BID #180 tabs 06/15/25 sertraline 50 mg tablet (Zoloft) 50 mg PO HS #90 tab-caps 06/20/25 pramipexole 0.25 mg tablet 0.25 mg PO QHS #90 tabs 06/26/25 Current Visit Medications: Current Medications Generic Name Dose Route Start Last Admin Trade Name Freq PRN Reason Stop Dose Admin Acetaminophen 1,000 mg 07/20/25 06:00 Acetaminophen 500 Mg Tab PO 08/19/25 05:59 Q4H PRN PRN Balanced Salt Solution 500 ml 07/20/25 06:00 Balanced Salt Soln.-Plus 500 Ml Bag OP 08/19/25 05:59 DIRECTED [facility] Miscellaneous Medication 0 ml 07/20/25 06:00 Prednisolone 1%, Moxifloxacin 0.5%, Bromfenac 0.09% 5.6ml Btl OS 08/19/25 05:59 DIRECTED [facility] Miscellaneous Medication 0 ml 07/20/25 06:00 07/20/25 07:44 Tropicam./Phenyleph. (1/2.5%) 5 Ml Btl OS 08/19/25 05:59 1 drp DIRECTED [facility] Administration Tetracaine HCl 0 ml 07/20/25 06:00 Tetracaine 0.5% 4 Ml Btl OS 08/19/25 05:59 DIRECTED [facility] PFSH Active Problems Active Problems: Problem Status Onset Code Posterior subcapsular age-related cataract of left eye Acute H25.042 Nuclear age-related cataract, left eye Acute H25.12 Posterior subcapsular age-related cataract, right eye Resolved H25.041 Nuclear age-related cataract, right eye Resolved H25.11 Unstable angina Acute I20.0 Right shoulder pain Acute M25.511 Iron deficiency anemia Acute D50.9 Right knee pain Acute M25.561 Claudication of both lower extremities Acute I73.9 Fatigue Acute R53.83 Restless leg syndrome Acute G25.81 Sensorineural hearing loss (SNHL) of both ears Acute H90.3 Impacted cerumen, bilateral Acute H61.23 Obesity (BMI 30-39.9) Acute E66.9 Trigger finger, right middle finger Acute M65.331 Right carpal tunnel syndrome Chronic G56.01 Carotid stenosis Chronic I65.29 History of tobacco use Acute Z87.891 CAD (coronary artery disease) Chronic I25.10 Moderate aortic regurgitation Chronic 04/09/15 I35.1 Hyperlipidemia Chronic 04/26/13 E78.5 Essential hypertension Chronic 10/24/13 I10 Diabetes mellitus Chronic 04/26/13 E11.9 Depressive disorder Chronic F32.9 Cataracts, both eyes Chronic 08/24/17 H26.9 Medical History Medical History Status post left heart catheterization (LHC) (~08/2018) 2 stents RCA. Normal vascular exam no lower extremity arterial occlusive disease/ [facility] [place]ascular lab. 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 Stenting x2 Abdominal hysterectomy (~1997) Tobacco Smoking/Tobacco Use Status: Former Tobacco Use Passive smoking exposure: Yes Second hand exposure: Yes Alcohol Alcohol Intake: never Substance Use Substance use: Never Substance use type: does not use Vital Signs and Lab Results Vital Signs Most Recent Vital Signs in EMR: Most Recent Vital Signs Temp Pulse Resp BP Pulse Ox 36.4 C L 89 18 119/55 L 99 07/20/25 07:15 07/20/25 07:15 07/20/25 07:15 07/20/25 07:15 07/20/25 07:15 Point of Care Results Point of Care Results: Finger Stick Blood Glucose 105 07/20/25 07:22 Imaging and Studies Imaging and Studies Study information below may be from another EMR and interpreted by another provider. Please see original notes in EMR for more complete details. Echocardiogram Summary: 09/2020:Conclusion Normal left ventricular wall thickness and chamber size. Estimated ejection fraction is 55 to 60%. There are no segmental wall motion abnormalities Normal right ventricular size and systolic function Both atria are normal in size. There is an atrial septal aneurysm The aortic valve is trileaflet and mildly sclerotic with mild regurgitation Structurally normal mitral, tricuspid, and pulmonic valves Trace mitral, tricuspid, and pulmonic regurgitation. Right ventricular systolic pressure could not be estimated Carotid Artery Summary:: 11/2022:IMPRESSION: 1. No hemodynamically significant right internal carotid artery stenosis. 2. 50-69 percent stenosis is seen in the left internal carotid artery proximally. 3. Bilateral atherosclerosis. Anesthesia Assessment and Plan Anesthesia History Personal History: No History of Anesthesia Complications Family History: No Family History of Anesthesia Complications Exercise Tolerance Exercise Tolerance: Metabolic Equivalents>4 Pertinent Negatives Pertinent Negatives: No Symptoms of GERD Cardiac & Pulmonary Exam Cardiac Exam: Normal S1/S2 Heart Sounds Pulmonary Exam: Clear Bilateral Breath Sounds Implantable Cardiac Device Does patient have a Pacemaker or an ICD?: No Airway Exam Known Difficult Airway: No Mallampati Class: 3 Mouth Opening: Normal (> 3cm) Thyromental Distance: Greater than 3 cm Neck Range of Motion: Full ROM Neck Circumference: Normal Teeth Condition: Edentulous ASA Classification ASA Score: ASA 3 Emergency Case?: No NPO Status NPO Status: NPO Clears >2 hours, Solids >8 hours Anesthesia Plan Resuscitation Status: Full Code Anesthesia Technique: MAC Anesthesia Airway Planned: Natural Airway Monitors Used: Standard Monitors
[2025-07-20 08:02] VITALS: BMI 25.9
[2025-07-20] MEDS: Lidocaine 1% Pres-Free 5 ML VIAL (09:01)
[2025-07-20] MEDS: Duovisc Viscoelastic System EACH 1 EACH (09:01)
[2025-07-20] MEDS: Moxifloxacin-PF 1 MG/ML VIAL (09:02)
[2025-07-20] MEDS: Phenylephrine/Lidocaine (15/10) MG/ML 1 ML VIAL (09:03)
[2025-07-20] MEDS: Povidone-Iodine Ophth 30 ML BTL (09:04)
[2025-07-20] MEDS: Prednisolone 1%, Moxifloxacin 0.5%, Bromfenac 0.09% 5.6ML BTL OS (09:05)
[2025-07-20] MEDS: Balanced Salt Soln.-PLUS 500 ML BAG OP (09:05)
[2025-07-20] MEDS: Tetracaine 0.5% 4 ML BTL OS (09:09)
[2025-07-20 09:21] VITALS: BP 118/56; PULSE 87; RESP 16; TEMP 36.2; O2SAT 97
--- NOTE | 2025-07-20 09:21 | W.PM.DSUDISC ---
Date of service: 07/20/25 Discharge Plan Disposition Patient Disposition: Home Discharge Details Attending Provider: Elvin Lizarraga Primary Care Provider: Polo Amaro Home Meds and New Rx's Prescriptions: No Action ascorbic acid (vitamin C) 500 mg tablet 500 mg PO DAILY sertraline [Zoloft] 50 mg tablet 50 mg PO HS Qty: 90 4RF clopidogrel 75 mg tablet 75 mg PO DAILY Patient Comments: TAKE ONE TABLET BY MOUTH EVERY DAY aspirin 81 mg tablet,delayed release (DR/EC) 81 mg PO DAILY Slow-Mag 71.5 mg tablet,delayed release (DR/EC) 71.5 mg PO BID Qty: 180 4RF ezetimibe [Zetia] 10 mg tablet 10 mg PO DAILY Qty: 90 4RF Rx Instructions: [place] [facility] [place] metoprolol succinate 100 mg tablet extended release 24 hr 100 mg PO QDAY Qty: 90 4RF (DME) Blood Glucose Test 1 EACH strip 1 ea Miscellaneous DAILY Qty: 100 Rx Instructions: QUALITY ASSURANCE QA LAB ANALYST PLUS TEST STRIPS/ PT DOES NOT USE INSULIN. DIAGNOSIS CODE e11.9 ibuprofen 600 mg tablet 600 mg PO TID PRN (Reason: fever or pain) Qty: 60 3RF Rx Instructions: TAKE WITH FOOD acetaminophen 500 mg tablet 1,000 mg PO Q8H PRN (Reason: pain) Qty: 90 3RF atorvastatin [Lipitor] 80 mg tablet 80 mg PO DAILY Qty: 7 0RF nitroglycerin 0.4 mg tablet, sublingual See Rx Instructions .ROUTE .COMPLEX Qty: 25 3RF Dose Instruction: PLACE ONE TABLET UNDER THE TONGUE EVERY 5 MINUTES FOR UP TO 3 DOSES NEEDED FOR CHEST PAIN. IF CHEST PAIN STILL PERSISTS CONTACT 911 Rx Instructions: PLACE ONE TABLET UNDER THE TONGUE EVERY 5 MINUTES FOR UP TO 3 DOSES NEEDED FOR CHEST PAIN. IF CHEST PAIN STILL PERSISTS CONTACT 911 omeprazole 20 mg capsule,delayed release(DR/EC) 20 mg PO DAILY Qty: 90 4RF amlodipine 10 mg tablet 10 mg PO DAILY Qty: 90 4RF Rx Instructions: take one tablet daily tirzepatide 7.5 mg/0.5 mL pen injector 7.5 mg subcut QWEEK Qty: 2 0RF Rx Instructions: for 4 weeks metformin 1,000 mg tablet 1,000 mg PO BID Qty: 180 4RF losartan 100 mg tablet 100 mg PO DAILY Qty: 90 4RF dapagliflozin propanediol 10 mg tablet 10 mg PO DAILY Qty: 90 4RF ferrous sulfate 325 mg (65 mg iron) tablet 650 mg PO BID Qty: 360 4RF pramipexole 0.25 mg tablet 0.25 mg PO QHS Qty: 90 4RF Discharge Instructions Stand Alone Forms: DSU Post-Op Cataract, Jason Bah ([facility]) Discharge Orders Discharge Orders: Discharge Order (Routine); Ordered 07/20/25 Ordered By: Elvin Lizarraga DS: Diagnosis Discharge Diagnosis (1) Posterior subcapsular age-related cataract of left eye: Status: Resolved (2) Nuclear age-related cataract, left eye: Status: Resolved
--- NOTE | 2025-07-20 09:22 | ROE_ITS ---
Operative Note Operative Note PRE-OP DIAGNOSIS: Nuclear/posterior subcapsular cataract, left eye POST-OP DIAGNOSIS: same PROCEDURE: Cataract extraction using phacoemulsification with intraocular lens implant, left eye SURGEON: Elvin Lizarraga ANESTHESIA TYPE: Local By Surgeon and MAC Refer to Anesthesia Record PATHOLOGY: none sent COMPLICATIONS: None Patient was transported to: same day Patient's condition: stable Implants: Maneul Clareon [id number] Indications: Progressive decreased vision due to cataract, left eye Procedure Description: CATARACT SURGERY OPERATIVE REPORT PREOPERATIVE DIAGNOSIS: Nuclear/posterior subcapsular cataract, left eye POSTOPERATIVE DIAGNOSIS: Same OPERATION: Cataract extraction using phacoemulsification with posterior chamber intraocular lens implant, left eye. IOL: IOL Car Repairer Apprentice/Model: Manuel Clareon [id number] IOL Power: + 21.0 diopters IOL Serial Number: [id number] Optic Diameter: 6.0mm Haptic/Overall Diameter: 13.0mm PHACO INFO: Manuel Centurion Vision System with OZil and Active Fluidics Cumulative Dispersed Energy (CDE): 5.16 seconds SURGEON: Elvin Lizarraga MD, RADHA ANESTHESIA: Monitored Anesthesia Care (MAC), with local sub-tenon's anesthetic infiltration COMPLICATIONS: None SPECIMENS: None INDICATIONS FOR PROCEDURE: The patient is a 75-year-old lady with history of diminished visual acuity in both eyes secondary to the development of bilateral nuclear/posterior subcapsular cataract. She has already undergone cataract surgery in the right eye and is doing well postoperatively. She now presents for cataract surgery in the left eye. See office notes for detailed information. PROCEDURE: The correct surgical eye was identified and marked as the left eye and the pupil was dilated in the preoperative area using mydriatics and cycloplegics. The dilated pupil size was 7.0 mm. The patient elected to proceed without oral sedation. The patient was brought to the operating room where cardiopulmonary monitoring was instituted and surgical time-out was performed, confirming the correct operative eye and IOL power. Topical anesthesia was administered and ophthalmic povidone-iodine 5% was instilled into the conjunctival fornices. The vida-ocular area was prepped with Betadine 10% solution and draped in the usual sterile fashion for intraocular surgery, including an aperture drape. A Tegaderm transparent film dressing was cut in half and used to cover the lashes and lid margins. Care was taken to sequester the lashes and lid margins under the Tegaderm dressing. A lid speculum was placed between the lids of the operative eye and the Manuel LuxOR Revalia operating microscope was maneuvered into position. Teo scissors were then used to make a conjunctival buttonhole approximately 6mm posterior to the limbus in the inferonasal quadrant. Blunt dissection was carried out to expose bare sclera, and a blunt-tipped sub-tenon?s anesthesia cannula was introduced and passed posteriorly along the globe where non- preserved plain lidocaine was injected into posterior sub-Tenon?s space. A sideport knife was used to make a paracentesis port. Intraocular phenylephrine/lidocaine was injected into the anterior chamber. The anterior chamber was then filled with viscoelastic. A keratome knife was used construct a two-plane clear corneal tunnel extending 2.0mm into clear cornea. A flap was raised on the anterior capsule and capsulorhexis forceps were used to complete a continuous curvilinear capsulorhexis of 5.0 mm. Balanced salt solution was then used to perform cortical cleaving hydrodissection and nuclear hydrodelineation until the lens could be freely rotated within the capsular bag. The lens nucleus was then disassembled and removed within the capsular bag and iris plane using phacoemulsification. Residual cortical material was removed using the irrigation/aspiration handpiece. The posterior capsule was carefully polished to remove as much residual lens epithelial cells as safely possible. The capsular bag was then inflated and the anterior chamber deepened with viscoelastic. The lens implant described above was inserted into the capsular bag using the Manuel Autonome Injector. A Kuglen hook was used to dial the IOL into position. Residual viscoelastic was then removed first from posterior to the IOL, then from the anterior chamber using the I/A handpiece. The lens implant was noted to center nicely within the capsular bag. The incisions were stromally hydrated, and the anterior chamber was reformed using BSS. Then 0.5cc of moxifloxacin 1.0mg/ml were injected into the capsular bag and anterior chamber. The incisions were checked with a Weck spear and found to be secure. Several drops of ophthalmic povidone-iodine 5% were then applied to the eye followed by two drops of combination steroid/NSAID/antibiotic solution. The drapes were removed and a clear plastic protective eye shield was placed over the eye. The patient was then returned to Same Day Surgery in stable condition. Date of Procedure: 07/20/25
--- NOTE | 2025-07-20 10:00 | W.ANESPOSTOP ---
Postoperative Evaluation Date, Time and Location Date Performed: 07/20/25 Time Performed: 09:43 Patient Location: Day Surgery Unit Vital Signs Most Recent Imported Vital Signs: Most Recent Vital Signs Temp Pulse Resp BP Pulse Ox 36.2 C L 87 16 118/56 L 97 07/20/25 09:21 07/20/25 09:21 07/20/25 09:21 07/20/25 09:21 07/20/25 09:21 Pain Score Most Recent Pain Score: Most Recent Pain Score Pain Level 0 07/20/25 09:21 Assessment Mental Status: Awake (Alert & Oriented to Patient Baseline) Airway and Respiratory Function: Patent airway with normal (patient baseline) respiratory exam Cardiovascular Function: Hemodynamically Stable Hydration Status: Adequately Hydrated Nausea & Vomiting: No Nausea or Vomiting Pain: Pt. Denies Any Pain Peripheral Nerve Block: Patient did not receive a nerve block
== END 2025-07-20 09:40 | disposition home or self-care (01) ==
LOC: SUR 07:14
PROVIDERS: PCP Nurse Practitioner Family; Visit Provider Ophthalmology
PROC: (CPT 66984; principal; 2025-07-20 09:30)
DX: H25.042 Posterior subcapsular polar age-related cataract, left eye (principal); H25.12 Age-related nuclear cataract, left eye; Z98.41 Cataract extraction status, right eye
CPT/HCPCS: 66984; 00123; V2632; J2003

== ENCOUNTER 2025-11-21 02:32 | Outpatient (CLI) | payer MEDICARE, MEDICAID, SELFPAY ==
[2025-11-21 07:37] LABS: Hemoglobin A1C 5.1 % (<5.7)
[2025-11-21 08:10] LABS: ALT 23 U/L (10-49); AST 23 U/L (<34); Albumin 4.2 g/dL (3.2-5.0); Alkaline Phosphatase 70 U/L (46-116); Anion Gap 12 mmol/L (3-11); BUN 19 mg/dL (9-23); Bilirubin, Total 0.6 mg/dL (0.2-1.2); CO2 25.0 mmol/L (20.0-31.0); Calcium 8.9 mg/dL (8.3-10.6); Chloride 109 mmol/L (98-107); Cholesterol 129 mg/dL (<200); Glucose 116 mg/dL (74-106); HDL Cholesterol 50 mg/dL (>or=50); Potassium 4.3 mmol/L (3.5-5.1); Sodium 146 mmol/L (136-145); Total Protein 6.4 g/dL (5.7-8.2)
== END 2025-11-21 02:33 | disposition home or self-care (01) ==
LOC: LBO 02:32
PROVIDERS: PCP Nurse Practitioner Family; Visit Provider Nurse Practitioner Family
DX: E78.5 Hyperlipidemia, unspecified (principal); E11.9 Type 2 diabetes mellitus without complications
CPT/HCPCS: 36415; 80053; 80061; 83036